=== PATIENT | female | born 1955 | race Caucasian/White ===

== ENCOUNTER → 2022-06-30 16:04 | Outpatient (CLI) | payer MEDICARE, SELFPAY ==
--- NOTE | 2022-06-30 16:06 | DI.MRI.S_ITS ---
PROCEDURE: MR LUMBAR SPINE WO CON INDICATIONS: Sciatica, left side TECHNIQUE: Noncontrast sagittal T1 spin echo and T2 fast echo, sagittal STIR, and T2 fast spin echo through the lumbar spine. In cases with scoliosis, additional coronal T2 fast spin echo may be performed. COMPARISON: None. FINDINGS: Image quality: Excellent. Alignment and Curvature: Trace anterolisthesis of L4 on L5. Bone Marrow: Marrow is of normal overall signal. No acute vertebral body compression fractures. Chronic L5 compression. Spinal Cord: Conus medullaris terminates at the L1 level. Visualized cord demonstrates normal signal and size. Paraspinous Soft Tissues: No paravertebral masses. T12-L1: Disc bulge. Facet hypertrophy. No significant canal stenosis. Mild left foraminal stenosis. L1-L2: Disc bulge. Facet hypertrophy. Mild canal stenosis. Mild right foraminal stenosis. L2-L3: Disc bulge. Facet and ligament hypertrophy. Moderate to severe canal stenosis. [id number] right foraminal stenosis. L3-L4: Disc bulge. Facet and ligament hypertrophy. Moderate canal stenosis. Severe right foraminal stenosis with impingement on the exiting right L3 nerve root. L4-L5: Trace anterolisthesis of L4 on L5. Disc bulge. Prominent facet hypertrophy. Moderate canal stenosis. Mild bilateral foraminal stenosis. L5-S1: Disc bulge. Prominent bilateral facet hypertrophy. Mild canal stenosis. Severe bilateral foraminal narrowing with bilateral foraminal L5 nerve root impingement. IMPRESSION: 1. There is underlying multilevel facet arthropathy including prominent facet arthropathy at L4-L5 and L5-S1. 2. There is multilevel canal stenosis, mild at L1-L2, moderate to severe at L2-L3, moderate at L3-L4, moderate at L4-L5, and mild at L5-S1. 3. Multilevel foraminal narrowing as described above. Findings include severe right foraminal stenosis at L3-L4 and severe bilateral foraminal stenosis at L5-S1. Dictated by: Torrey Calderon M.D. on 07/01/2022 at 7:59 Approved by: Torrey Calderon M.D. on 07/01/2022 at 8:05
== END ==
PROVIDERS: Family Provider Internal Medicine; PCP Internal Medicine; Referring Provider Internal Medicine; Visit Provider Internal Medicine
DX: M54.32 Sciatica, left side (principal); M47.816 Spondylosis without myelopathy or radiculopathy, lumbar region; M47.817 Spondylosis without myelopathy or radiculopathy, lumbosacral region; M48.061 Spinal stenosis, lumbar region without neurogenic claudication; M48.07 Spinal stenosis, lumbosacral region
CPT/HCPCS: 72148

== ENCOUNTER 2023-06-19 10:37 | Inpatient (IN) | payer MEDICARE, SELFPAY ==
[2023-06-19] VITALS (32 sets, daily range): BP systolic 150–223; BP diastolic 73–153; PULSE 71–87; RESP 14–24; TEMP 35.9–36.6; O2SAT 91–97; BMI 32.5
--- NOTE | 2023-06-19 10:59 | DI.RAD.S_ITS ---
PROCEDURE: XR CHEST 1V INDICATIONS: chest pain TECHNIQUE: One view of the chest was acquired. COMPARISON: None. FINDINGS: Surgical changes and devices: None. Lungs and pleura: On this semiupright portable chest examination, no large pneumothorax or large pleural effusions are seen. No focal infiltrates are seen. Calcification can be seen along the right inferior pleura. Low lung volumes are noted. This causes a crowded appearance to the lung markings and limits evaluation. Mediastinum: The cardiac contours are within normal limits. The aorta demonstrates calcification and tortuosity. Bones and chest wall: No suspicious bony lesions. Age-appropriate bony degenerative changes are seen. Mild dextroconvex scoliotic curvature is seen. Overlying soft tissues appear unremarkable. IMPRESSION: No christ acute abnormality can be seen on this limited single view portable chest. There is calcification seen along the right inferior pleura. Please correlate with a history of asbestos exposure. Dictated by: Mg June M.D. on 06/19/2023 at 10:18 Approved by: Mg June M.D. on 06/19/2023 at 10:19
[2023-06-19 11:29] LABS: Alanine Aminotransferase 19 IU/L (<35); Albumin 3.4 g/dL (3.5-5.0); Alkaline Phosphatase 162 U/L (38-126); Aspartate Aminotransferase 40 IU/L (14-36); BUN Creatinine Ratio 28.6 (6-22); Bilirubin Total 0.8 mg/dL (0.2-1.3); Blood Urea Nitrogen 20 mg/dL (7-17); Calcium 8.4 mg/dL (8.4-10.2); Carbon Dioxide 33 mmol/L (22-32); Chloride 91 mmol/L (98-107); Creatine Kinase 63 U/L (30-135); Estimated Glomerular Filt Rate > 60 mL/min (>60); Globulin 3.4 g/dL (1.7-4.1); Glucose 106 mg/dL (80-110); HEMOLYSIS < 15 (0-50); Lipase 29 U/L (23-300); Magnesium 1.8 mg/dL (1.6-2.3); Sodium 128 mmol/L (137-145); Total Protein 6.8 g/dL (6.3-8.2)
[2023-06-19 11:31] LABS: Add Manual Diff / Slide Review NO; Basophils Absolute Auto 100 /uL (0-100); Basophils Percent Auto 0.8 % (0-2); Eosinophils Absolute Auto 0 /uL (0-450); Eosinophils Percent Auto 0.1 % (2-4); Hematocrit 31.5 % (36-46); Hemoglobin 10.1 g/dL (12.0-16.0); Lymphocytes Absolute Auto 3500 /uL (1100-4500); Lymphocytes Percent Auto 20.2 % (25-40); Mean Corpuscular HGB Conc 32.1 % (30-36); Mean Corpuscular Hemoglobin 21.9 PG (26-34); Mean Corpuscular Volume 68.1 fL (80-100); Monocytes Absolute Auto 1000 /uL (0-900); Monocytes Percent Auto 5.7 % (3-14); Neutrophils Absolute Auto 12700 /uL (1500-7000); Neutrophils Percent Auto 73.2 % (50-75); Platelet Count 444 X10^3/uL (150-400); Red Blood Cell Count 4.62 X10^6/uL (4.0-5.2); Red Cell Distribution Width 21.5 % (11.6-14.8); White Blood Cell Count 17.4 X10^3/uL (4.5-11.0)
[2023-06-19 11:36] LABS: Anisocytosis 2+; Target Cells 1+
[2023-06-19 11:39] LABS: Potassium 2.2 mmol/L (3.4-5.1)
[2023-06-19 11:41] LABS: Troponin I 0.544 ng/mL (0.01-0.034)
[2023-06-19 11:43] LABS: INR 0.9 (0.9-1.3); Prothrombin Time 10.6 SECONDS (9.4-12.5)
[2023-06-19 11:46] LABS: PTT Partial Thromboplastin Tim 31 SECONDS (25.1-36.5)
--- NOTE | 2023-06-19 11:49 | ED.DIZZY ---
HPI - Dizziness General Chief Complaint: Dizziness Stated Complaint: dizzy, fall, failure to thrive in home Time Seen by Provider: 06/19/23 11:13 Source: patient and EMS Mode of arrival: EMS History of Present Illness HPI Narrative: Patient is a 68-year-old female with chronic back pain on Flexeril unknown cardiac history but she does take diltiazem presenting today with some dizziness. Patient has had some social stressors at home her niece recently a traumatic and she has been struggling. She admits to feeling shutting down and numb. She has been staying in her room. She denies any sort of chest pain shortness of breath. She has no fever chills cough no nausea or vomiting. Not totally sure why she is here. Son reports that she fell at some point non anticoagulation or antiplatelet medications Related Data Home Medications Medication Instructions Recorded Confirmed hydrocodone 7.5 mg-acetaminophen 1 tab PO Q6H PRN Pain (Scale Score 07/26/17 06/19/23 300 mg tablet 7-10) omeprazole 40 mg capsule,delayed 40 mg PO DAILY 07/26/17 06/19/23 release Respironics Dreamstation Auto BIPAP #1 ea 03/02/18 06/19/23 trazodone 100 mg tablet 150 mg PO DAILY 03/04/18 06/19/23 duloxetine 30 mg capsule,delayed 60 mg PO DAILY 06/19/23 06/19/23 release fluoxetine 20 mg capsule 40 mg PO DAILY 06/19/23 06/19/23 gabapentin 300 mg capsule 600 mg PO 3XD 06/19/23 06/19/23 triamterene 75 1 tab PO DAILY 06/19/23 06/19/23 mg-hydrochlorothiazide 50 mg tablet Allergies Allergy/AdvReac Type Severity Reaction Status Date / Time No Known Drug Allergies Allergy Verified 09/01/18 09:50 Patient History Medical History Obesity (BMI 30-39.9) Knee pain, right [place] (generalized anxiety disorder) Depression Hypertension Morbid obesity with BMI of 50.0-59.9, adult Periodic limb movement disorder (PLMD) Insomnia, unspecified Obstructive sleep apnea of adult Snoring Surgical History History of gastric bypass Social History marital status: details: to Rajan Diaz household members: children and other lives independently: Yes caregiver/support person: No housing: house Smoking Status: Former smoker alcohol intake: never Smoking Status: Former smoker Exam Initial Vital Signs Initial Vital Signs: Vital Signs Pulse Rate 80 06/19/23 10:43 Pulse Oximetry 93 06/19/23 10:43 GENERAL: Alert elderly 68-year-old female and in no acute distress. HEENT: Head atraumatic,EOMI, pupils reactive, face symmetric, moist mucous membranes CARDIOVASCULAR: Regular rate and rhythm without murmurs, rubs or gallops. RESPIRATORY: Breath sounds equal bilaterally, no wheezes rales or rhonchi. ABDOMEN: Soft, nontender. Normoactive bowel sounds all 4 quadrants. No guarding or rebound. EXTREMITIES: Normal range of motion, no clubbing or edema. Neurovascularly intact NEUROLOGICAL: Alert and oriented x4.Normal gait and speech. Cranial nerves II through XII grossly intact. Good [id number], good [id number], strength equal bilaterally, no dysarthria or aphasia, sensation in tact to soft touch bilaterally, no visual changes, no facial droop SKIN: Warm, dry, no laceration, no petechiae, no rashes or lesions. Scores GCS [place] coma scale eye opening: Spontaneous [place] coma scale verbal response: Orientated [place] coma scale motor response: Obey commands [place] coma scale total score: 15 Course Orders Ordered: Acetaminophen (Acetaminophen 325 Mg Tablet) 650 mg PO Q6H PRN PRN Reason: Fever/Mild Pain (1-3) Last Admin: 06/20/23 05:34 Dose: 650 mg Documented By: Admin: 06/19/23 23:08 Dose: 650 mg Documented By: AT Albuterol/Ipratropium (Albuterol/Ipratropium 3 Ml Ampul) 3 ml INH [id number] PRN PRN Reason: shortness of breath/wheezing Aspirin (Aspirin Ec 81 Mg Tablet) 81 mg PO DAILY ESVIN Azithromycin (Azithromycin 250 Mg Tablet) 500 mg PO DAILY [facility] Stop: 06/21/23 09:01 Last Admin: 06/19/23 18:26 Dose: 500 mg Documented By: KW Duloxetine HCl (Duloxetine 30 Mg Capsule) 60 mg PO DAILY [facility] Enoxaparin Sodium (Enoxaparin 40 Mg/0.4 Ml Syringe) 40 mg SUBCUT DAILY [facility] Fluoxetine HCl (Fluoxetine 20 Mg Capsule) 40 mg PO DAILY [facility] Sodium Chloride (Normal Saline 0.9%) 1,000 mls @ 100 mls/hr IV CONT ESVIN Last Admin: 06/20/23 05:38 Dose: 100 mls/hr Documented By: Infusion: 06/20/23 04:53 Dose: Infused Documented By: Admin: 06/19/23 18:53 Dose: 100 mls/hr Documented By: Infusion: 06/19/23 18:53 Dose: Infused Documented By: Infusion: 06/19/23 18:35 Dose: 100 mls/hr Documented By: Admin: 06/19/23 12:40 Dose: 100 mls/hr Documented By: JEFFREY Ceftriaxone Sodium 1,000 mg/ (Sodium Chloride) 100 mls @ 200 mls/hr IV Q24H [facility] Stop: 06/22/23 17:46 Last Admin: 06/19/23 18:26 Dose: 200 mls/hr Documented By: JEFFREY Lorazepam (Lorazepam 0.5 Mg Tablet) 0.5 mg PO Q6HR PRN PRN Reason: Anxiety Melatonin (Melatonin 3 Mg Tablet) 6 mg PO BEDTIME PRN PRN Reason: Insomnia Naloxone HCl (Naloxone 0.4 Mg/Ml Vial) 0.2 mg IV Q2MIN PRN PRN Reason: Opiate Reversal Ondansetron HCl (Ondansetron 4 Mg/2 Ml Inj) 4 mg IV Q4HR PRN PRN Reason: Nausea And Vomiting Last Admin: 06/19/23 18:53 Dose: 4 mg Documented By: NICO Polyethylene Glycol (Polyethylene Glycol 3350 17 Gm Powd.Pack) 17 gm PO DAILY PRN PRN Reason: Constipation Prednisone (Prednisone 20 Mg Tablet) 40 mg PO DAILY [facility] Stop: 06/23/23 09:01 Last Admin: 06/19/23 20:31 Dose: 40 mg Documented By: SOURAV Sennosides (Sennosides 8.6 Mg Tablet) 8.6 mg PO BID PRN PRN Reason: Constipation Discontinued Medications Acetaminophen (Acetaminophen 325 Mg Tablet) 975 mg PO NOW ONE Stop: 06/19/23 17:18 Last Admin: 06/19/23 17:20 Dose: 975 mg Documented By: JEFFREY Aspirin (Aspirin 81 Mg Chew Tab) 324 mg PO NOW ONE Stop: 06/19/23 14:15 Last Admin: 06/19/23 14:41 Dose: 324 mg Documented By: ADAM POTASSIUM CHLORIDE IN WATER (Potassium Cl 10 Meq/100 Ml Annie) 10 meq in 100 mls @ 100 mls/hr IV Q1H [facility] Stop: 06/19/23 18:14 Last Infusion: 06/19/23 23:04 Dose: Infused Documented By: Admin: 06/19/23 22:04 Dose: 100 mls/hr Documented By: Infusion: 06/19/23 21:32 Dose: Infused Documented By: Admin: 06/19/23 20:32 Dose: 100 mls/hr Documented By: Infusion: 06/19/23 18:16 Dose: Infused Documented By: Admin: 06/19/23 17:16 Dose: 100 mls/hr Documented By: Infusion: 06/19/23 17:15 Dose: Infused Documented By: Admin: 06/19/23 16:11 Dose: 100 mls/hr Documented By: Infusion: 06/19/23 16:10 Dose: Infused Documented By: Admin: 06/19/23 14:41 Dose: 100 mls/hr Documented By: Infusion: 06/19/23 14:25 Dose: Infused Documented By: Admin: 06/19/23 13:05 Dose: 100 mls/hr Documented By: JEFFREY Nicotine (Nicotine 21 Mg Patch) 21 mg TOP NOW ONE Stop: 06/19/23 15:43 Last Admin: 06/19/23 18:21 Dose: Not Given Documented By: JEFFREY Nicotine (Nicotine 21 Mg Patch) 21 mg TOP NOW ONE Stop: 06/19/23 23:01 Last Admin: 06/19/23 23:09 Dose: 21 mg Documented By: AT Potassium Chloride (Potassium Chloride 20 Meq Tab) 20 meq PO NOW ONE Stop: 06/20/23 00:14 Last Admin: 06/20/23 00:51 Dose: 20 meq Documented By: AT Vital Signs Vital signs: Vital Signs - 8 hr 06/19/23 11:00 06/19/23 11:24 06/19/23 11:24 Pulse Rate 74 72 Respiratory Rate 22 Blood Pressure 175/84 H Pulse Oximetry 92 93 06/19/23 11:30 06/19/23 11:31 06/19/23 11:31 Pulse Rate 82 75 Respiratory Rate Blood Pressure 171/74 H Pulse Oximetry 93 91 06/19/23 12:00 06/19/23 12:00 06/19/23 12:30 Pulse Rate 74 73 Respiratory Rate 24 Blood Pressure 176/86 H Pulse Oximetry 93 94 06/19/23 12:30 06/19/23 13:00 06/19/23 13:01 Pulse Rate 80 79 Respiratory Rate Blood Pressure 183/105 H Pulse Oximetry 93 06/19/23 13:01 06/19/23 13:30 06/19/23 13:41 Pulse Rate 74 Respiratory Rate 19 Blood Pressure 150/76 H 176/87 H Pulse Oximetry 95 06/19/23 13:41 06/19/23 14:00 06/19/23 14:01 Pulse Rate 77 73 74 Respiratory Rate 24 20 19 Blood Pressure Pulse Oximetry 94 93 91 06/19/23 14:01 06/19/23 14:37 06/19/23 14:38 Pulse Rate 71 71 Respiratory Rate 18 18 Blood Pressure 223/99 H Pulse Oximetry 92 93 06/19/23 14:38 06/19/23 14:48 06/19/23 14:52 Pulse Rate 72 73 Respiratory Rate Blood Pressure 213/153 H Pulse Oximetry 91 95 06/19/23 14:52 06/19/23 15:06 06/19/23 15:30 Pulse Rate 72 72 Respiratory Rate Blood Pressure 182/84 H Pulse Oximetry 95 92 06/19/23 15:30 06/19/23 16:00 06/19/23 16:01 Pulse Rate 72 72 Respiratory Rate 18 24 Blood Pressure 197/89 H Pulse Oximetry 97 96 06/19/23 16:01 06/19/23 16:30 06/19/23 16:31 Pulse Rate 75 77 Respiratory Rate 19 23 Blood Pressure 194/89 H Pulse Oximetry 96 95 06/19/23 16:31 06/19/23 17:00 06/19/23 17:01 Pulse Rate 73 74 Respiratory Rate 23 Blood Pressure 211/101 H Pulse Oximetry 92 92 MDM - Dizziness Lab Data 06/20/23 05:41 06/20/23 05:41 Labs: Lab Results 06/19/23 06/19/23 06/19/23 Range/Units 11:00 11:09 13:13 WBC 17.4 H (4.5-11.0) X10^3/uL RBC 4.62 (4.0-5.2) X10^6/uL Hgb 10.1 L (12.0-16.0) g/dL Hct 31.5 L (36-46) % MCV 68.1 L (80-100) fL MCH 21.9 L (26-34) PG MCHC 32.1 (30-36) % RDW 21.5 H (11.6-14.8) % Plt Count 444 H (150-400) X10^3/uL Neut % (Auto) 73.2 (50-75) % Lymph % (Auto) 20.2 L (25-40) % [place] % (Auto) 5.7 (3-14) % Eos % (Auto) 0.1 L (2-4) % Baso % (Auto) 0.8 (0-2) % Neut # (Auto) 52970 H (7556-2367) /uL Lymph # (Auto) 3500 (3496-9268) /uL [place] # (Auto) 1000 H (0-900) /uL Eos # (Auto) 0 (0-450) /uL Baso # (Auto) 100 (0-100) /uL RBC Morphology Not Reportable Anisocytosis 2+ H Target Cells 1+ H PT 10.6 (9.4-12.5) SECONDS INR 0.9 (0.9-1.3) APTT 31 (25.1-36.5) SECONDS Sodium 128 L (137-145) mmol/L Potassium 2.2 L* (3.4-5.1) mmol/L Chloride 91 L (98-107) mmol/L Carbon Dioxide 33 H (22-32) mmol/L BUN 20 H (7-17) mg/dL Creatinine 0.70 (0.52-1.04) mg/dL Estimated GFR > 60 (>60) mL/min BUN/Creatinine Ratio 28.6 H (6-22) Glucose 106 (80-110) mg/dL Lactate 1.3 (0.7-2.1) mmol/L Calcium 8.4 (8.4-10.2) mg/dL Magnesium 1.8 (1.6-2.3) mg/dL Total Bilirubin 0.8 (0.2-1.3) mg/dL AST 40 H (14-36) IU/L ALT 19 (<35) IU/L Alkaline Phosphatase 162 H (38-126) U/L Total Creatine Kinase 63 (30-135) U/L Troponin I 0.544 H* 0.546 H* (0.01-0.034) ng/mL Total Protein 6.8 (6.3-8.2) g/dL Albumin 3.4 L (3.5-5.0) g/dL Globulin 3.4 (1.7-4.1) g/dL Albumin/Globulin Ratio 1.0 (1.0-2.8) Lipase 29 (23-300) U/L Procalcitonin 0.23 (<0.5) ng/mL Urine Color Urine Appearance Urine pH (4.5-8.0) Ur Specific [place] (1.000-1.035) Urine Protein (Negative) Urine Glucose (UA) (Negative) g/dL Urine Ketones (NEGATIVE) Urine Occult Blood (Negative) Urine Nitrate (Negative) Urine Bilirubin (NEGATIVE) Urine Urobilinogen (0.2) E.U./dL Ur Leukocyte Esterase (NEGATIVE) Urine RBC (0-5/HPF) Urine WBC (0-5/HPF) Ur Squamous Epith Cells (0-5/HPF) Amorphous Sediment Urine Bacteria (None) Ur Culture Indicated? Vol Urine Centrifuged Salicylates (<20) mg/dL U Opiates 300ng/mL cut (Negative) Ur Oxycodone Screen (Negative) Urine Methadone Screen (Negative) Acetaminophen (10-30) ug/mL Ur Barbiturates Screen (Negative) U Tricyclic Antidepress (Negative) Ur Phencyclidine Scrn (Negative) Ur Amphetamines Screen (Negative) U Methamphetamines Scrn (Negative) Ur MDMA Scrn (Ecstasy) (Negative) U Benzodiazepines Scrn (Negative) Urine Cocaine Screen (Negative) U Marijuana (THC) Screen (Negative) Urine Specific [place] (Normal) Ethyl Alcohol < 10 ( - 10) mg/dL Ur Creatinine (Normal) 06/19/23 06/19/23 06/19/23 Range/Units 13:30 13:30 15:46 WBC (4.5-11.0) X10^3/uL RBC (4.0-5.2) X10^6/uL Hgb (12.0-16.0) g/dL Hct (36-46) % MCV (80-100) fL MCH (26-34) PG MCHC (30-36) % RDW (11.6-14.8) % Plt Count (150-400) X10^3/uL Neut % (Auto) (50-75) % Lymph % (Auto) (25-40) % [place] % (Auto) (3-14) % Eos % (Auto) (2-4) % Baso % (Auto) (0-2) % Neut # (Auto) (8272-6196) /uL Lymph # (Auto) (5001-6944) /uL [place] # (Auto) (0-900) /uL Eos # (Auto) (0-450) /uL Baso # (Auto) (0-100) /uL RBC Morphology Anisocytosis Target Cells PT (9.4-12.5) SECONDS INR (0.9-1.3) APTT (25.1-36.5) SECONDS Sodium (137-145) mmol/L Potassium (3.4-5.1) mmol/L Chloride (98-107) mmol/L Carbon Dioxide (22-32) mmol/L BUN (7-17) mg/dL Creatinine (0.52-1.04) mg/dL Estimated GFR (>60) mL/min BUN/Creatinine Ratio (6-22) Glucose (80-110) mg/dL Lactate (0.7-2.1) mmol/L Calcium (8.4-10.2) mg/dL Magnesium (1.6-2.3) mg/dL Total Bilirubin (0.2-1.3) mg/dL AST (14-36) IU/L ALT (<35) IU/L Alkaline Phosphatase (38-126) U/L Total Creatine Kinase (30-135) U/L Troponin I 0.572 H* (0.01-0.034) ng/mL Total Protein (6.3-8.2) g/dL Albumin (3.5-5.0) g/dL Globulin (1.7-4.1) g/dL Albumin/Globulin Ratio (1.0-2.8) Lipase (23-300) U/L Procalcitonin (<0.5) ng/mL Urine Color Yellow Urine Appearance Clear Urine pH 7.0 Normal (4.5-8.0) Ur Specific [place] 1.010 (1.000-1.035) Urine Protein Trace H (Negative) Urine Glucose (UA) Negative (Negative) g/dL Urine Ketones Negative (NEGATIVE) Urine Occult Blood Negative (Negative) Urine Nitrate Negative (Negative) Urine Bilirubin Negative (NEGATIVE) Urine Urobilinogen 2.0 H (0.2) E.U./dL Ur Leukocyte Esterase Negative (NEGATIVE) Urine RBC None seen (0-5/HPF) Urine WBC 0-1/hpf (0-5/HPF) Ur Squamous Epith Cells 0-1 /hpf (0-5/HPF) Amorphous Sediment 1+ Urine Bacteria None seen (None) Ur Culture Indicated? Cult not indicated Vol Urine Centrifuged 10ml (spun) Salicylates 1.8 (<20) mg/dL U Opiates 300ng/mL cut Positive H (Negative) Ur Oxycodone Screen Positive H (Negative) Urine Methadone Screen Negative (Negative) Acetaminophen < 10 (10-30) ug/mL Ur Barbiturates Screen Negative (Negative) U Tricyclic Antidepress Positive H (Negative) Ur Phencyclidine Scrn Negative (Negative) Ur Amphetamines Screen Negative (Negative) U Methamphetamines Scrn Negative (Negative) Ur MDMA Scrn (Ecstasy) Negative (Negative) U Benzodiazepines Scrn Positive H (Negative) Urine Cocaine Screen Negative (Negative) U Marijuana (THC) Screen Negative (Negative) Urine Specific [place] Normal (Normal) Ethyl Alcohol ( - 10) mg/dL Ur Creatinine Normal (Normal) Imaging Data Chest x-ray: Radiologist's Impression: PROCEDURE: XR CHEST 1V INDICATIONS: chest pain TECHNIQUE: One view of the chest was acquired. COMPARISON: None. FINDINGS: Surgical changes and devices: None. Lungs and pleura: On this semiupright portable chest examination, no large pneumothorax or large pleural effusions are seen. No focal infiltrates are seen. Calcification can be seen along the right inferior pleura. Low lung volumes are noted. This causes a crowded appearance to the lung markings and limits evaluation. Mediastinum: The cardiac contours are within normal limits. The aorta demonstrates calcification and tortuosity. Bones and chest wall: No suspicious bony lesions. Age-appropriate bony degenerative changes are seen. Mild dextroconvex scoliotic curvature is seen. Overlying soft tissues appear unremarkable. IMPRESSION: No christ acute abnormality can be seen on this limited single view portable chest. There is calcification seen along the right inferior pleura. Please correlate with a history of asbestos exposure. Dictated by: Mg June M.D. on 06/19/2023 at 10:18 CT scan - head: Radiologist's Impression: PROCEDURE: CT HEAD/BRAIN WO CON INDICATIONS: fall TECHNIQUE: Noncontrast 4.5 mm thick angled axial sections acquired from the foramen magnum to the vertex, with coronal and sagittal reformats. For radiation dose reduction, the following was used: automated exposure control, adjustment of mA and/or kV according to patient size. COMPARISON: [facility], CR, XR CHEST 1V, 06/19/2023, 11:07. [facility], CT, HEAD WITHOUT CONTRAST, 04/13/2014, 8:09. FINDINGS: Image quality: Mild streak artifact can be seen through the skull base. CSF spaces: Basal cisterns are patent. No extra-axial fluid collections. The ventricles are symmetric in size and shape. Brain: No intracranial bleeds or masses. There is cerebral volume loss for age, with resultant ventricular and sulcal prominence. There are periventricular and deep white matter chronic small vessel ischemic changes. There is intracranial internal carotid artery atherosclerosis. Areas of extra-axial calcification can be seen posteriorly and superiorly, which are similar to the prior and considered to be benign. Skull and face: Calvarium and visualized facial bones appear intact, without suspicious lesions. Incidental note is made of hyperostosis frontalis. This is not considered to be pathologic in a woman of this age. Sinuses: Visualized sinuses and mastoids are clear. IMPRESSION: No acute intracranial hemorrhage is seen. No acute intracranial pathology. Dictated by: Mg June M.D. on 06/19/2023 at 12:01 CT scan - chest: Radiologist's Impression: PROCEDURE: CT CHEST ABD PEL W CON INDICATIONS: confusion elevated wbc TECHNIQUE: After the administration of intravenous contrast, 5 mm thick sections acquired from the lung apices to the symphysis. 5 mm coronal and sagittal reformats were performed, with additional 7 mm MIP reformats through the lungs. For radiation dose reduction, the following was used: automated exposure control, adjustment of mA and/or kV according to patient size. COMPARISON: [facility], CR, XR CHEST 1V, 06/19/2023, 11:07. FINDINGS: Image quality: Excellent. CHEST: Lower Neck: No enlarged lymph nodes. Thyroid: No thyroid nodules which require sonographic follow up, per consensus guidelines. Axillae: No enlarged lymph nodes. Chest Wall: Unremarkable. Lungs and Pleura: Subpleural ground-glass infiltrates in upper lobes bilaterally. There are subpleural nodules in right upper lobe. Right basilar scars and atelectasis. No pneumothorax or pleural effusions. Pleural thickening and calcified pleural plaques in the right khadar thorax. No consolidation or suspicious nodules. Heart: Heart size is normal. No pericardial effusion. Moderate coronary artery calcification. Thoracic Vessels: The aorta and pulmonary arteries demonstrate normal size. Mediastinum and Jacqueline: No enlarged lymph nodes. Esophagus: No wall thickening. Small hiatal hernia. ABDOMEN: Liver: No solid mass. Normal size. Mild hepatic steatosis. Gallbladder: Surgically absent. Biliary ducts: There is mild intrahepatic biliary dilation. Common bile duct is dilated measuring up to 20 mm, tapering to 9 mm in ampulla. Pancreas: No ductal dilation. Spleen: Size is within normal limits. Adrenal Glands: Left adrenal thickening.. Kidneys and Ureters: Left kidney demonstrates abnormal enhancement with areas of decreased enhancement suspicious for pyelonephritis. There are multiple low-density nodules in kidneys bilaterally, most likely cysts. A rim calcified cyst is seen in the inferior pole of the right kidney. No renal stones or hydronephrosis. No solid mass. No complex renal cystic lesion which requires follow up. Stomach and Bowel: Postsurgical changes with gastric bypass. Normal colonic caliber, without significant wall thickening. There is a large amount of stool in colon. Peritoneum: No abnormal intraperitoneal fluid. No free air. Ventral Wall: Multiple ventral hernias. There is a large ventral hernia at midline containing omentum, mesentery small bowel and colon loops. A subxiphoid fat containing ventral hernia is seen. Abdominal Nodes: No retroperitoneal or mesenteric adenopathy by size criteria. Vessels: Aorta and inferior vena cava are normal in size. Mild atherosclerotic calcifications. PELVIS: Pelvic Organs: Uterus is absent. Ovaries are not visualized. There is no pathological free-fluid in pelvis.. Bladder: No bladder wall thickening, accounting for underdistention. Pelvic Nodes: No enlarged lymph nodes. Miscellaneous: No inguinal hernias are seen. Bones: No aggressive osseous abnormality. Scoliosis and degenerative changes in lumbar spine. IMPRESSION: 1. Striated nephrogram in left kidney suspicious for pyelonephritis. 2. Subpleural ground-glass infiltrates in upper lobes bilaterally, consistent with pneumonia, including atypical pneumonia. 3. Small subpleural nodules in right upper lobe. Consider follow-up CT to the region. 4. Pleural thickening and calcification in right lower hemithorax along the hemidiaphragm. There are right basilar scars and atelectasis. 5. Cholecystectomy. There is biliary dilation. Please correlate with serum bilirubin for biliary obstruction. 6. Multiple ventral hernias. 7. A large amount of stool in colon. Dictated by: Leon Song M.D. on 06/19/2023 at 16:11 ECG Data Interpretation: EKG 1. Sinus rhythm with some ST depression in V3 V4 V5 V6 and lead [address] elevation no priors to compare EKG 2. Artifact noted but no obvious ST changes with persistent ST depression in precordial leads EKG 3. Persistent ST depression in precordial leads without ST elevation sinus rhythm rate 70 MDM Narrative Medical decision making narrative: MDM CC: Dizziness confusion Complicating co-morbidities: Hypertension Corroborating data: Son and EMS Medical records reviewed: None to review Differential considered: [ ] Exam documented above, pertinent findings include: A&O x3 no focal deficits Lab Test results independently reviewed as above. Pertinent findings: WBC 17.4, Hb 10.1, Hct 31.5, platelets 444, sodium 28 potassium 2.2 chloride 91 carbon dioxide 33 BUN 20 creatinine 0.7, glucose 106, lactate 1.3, Mag 1.8 bilirubin 0.8 AST 40 ALT 19 alk-phos 162 troponin 0.546, 0.572 Drug screen is positive for oxycodone, opiates, TCA, and benzos, alcohol level negative Independently reviewed EKG as above: ST depressions precordial leads without elevations no priors to compare Imaging studies independently reviewed: Chest x-ray no acute cardiopulmonary process CT chest abdomen pelvis shows possible pyelonephritis but no other abnormality. Head CT negative Consultations: 15:15 Dr. Hodgson recommend aspirin only no need for heparin drip recommend echocardiogram and echo no need for transfer Dr. Tillman updated on patient's symptoms test results request CT chest abdomen pelvis Treatments: IV fluids, K rider potassium Re-evaluations: [ ] Discussion: Patient presents today with some sort of dizziness depression no suicidal ideations. She is found to be slightly hyponatremic with a sodium of 128 a potassium of 2.2 and elevated troponins remained stable. Unclear cause of troponin elevation she does have some slight ST depression but cardiology just recommended aspirin and echo no need for anticoagulation or transfer. Troponins are stable x3 and she has not symptomatic or having any sort of chest pain. Initially reported to be slightly dizzy but not complaining of dizziness here she has no focal deficits. Head CT is negative. She is noted to have leukocytosis of 17 unclear cause of infection./CT does show some pyelonephritis however her urinalysis is clear she has no fever, no respiratory symptoms and her abdomen is soft Discharge Plan Departure Patient Disposition: Admitted As Inpatient Clinical Impression: Acute non-ST elevation myocardial infarction (NSTEMI), Hypokalemia, Acute hyponatremia Admit Date/Time: 06/19/23 17:16 Admit Provider: Garrett Tillman
[2023-06-19 12:06] LABS: Ethanol (ETOH) < 10 mg/dL
--- NOTE | 2023-06-19 12:13 | DI.CT.S_ITS ---
PROCEDURE: CT HEAD/BRAIN WO CON INDICATIONS: fall TECHNIQUE: Noncontrast 4.5 mm thick angled axial sections acquired from the foramen magnum to the vertex, with coronal and sagittal reformats. For radiation dose reduction, the following was used: automated exposure control, adjustment of mA and/or kV according to patient size. COMPARISON: [facility], CR, XR CHEST 1V, 06/19/2023, 11:07. [facility], CT, HEAD WITHOUT CONTRAST, 04/13/2014, 8:09. FINDINGS: Image quality: Mild streak artifact can be seen through the skull base. CSF spaces: Basal cisterns are patent. No extra-axial fluid collections. The ventricles are symmetric in size and shape. Brain: No intracranial bleeds or masses. There is cerebral volume loss for age, with resultant ventricular and sulcal prominence. There are periventricular and deep white matter chronic small vessel ischemic changes. There is intracranial internal carotid artery atherosclerosis. Areas of extra-axial calcification can be seen posteriorly and superiorly, which are similar to the prior and considered to be benign. Skull and face: Calvarium and visualized facial bones appear intact, without suspicious lesions. Incidental note is made of hyperostosis frontalis. This is not considered to be pathologic in a woman of this age. Sinuses: Visualized sinuses and mastoids are clear. IMPRESSION: No acute intracranial hemorrhage is seen. No acute intracranial pathology. Dictated by: Mg June M.D. on 06/19/2023 at 12:01 Approved by: Mg June M.D. on 06/19/2023 at 12:03
[2023-06-19 12:26] LABS: Lactate (Lactic Acid) 1.3 mmol/L (0.7-2.1)
[2023-06-19] MEDS: SODIUM CHLORIDE 0.9% 1,000 ML 100 ML IV ×2 (12:40→18:53)
[2023-06-19 12:44] LABS: Procalcitonin 0.23 ng/mL (<0.5)
[2023-06-19] MEDS: POTASSIUM CHLORIDE IN WATER 10 MEQ/100 ML PIGGYBACK 100 MEQ IV ×6 (13:05→22:04)
[2023-06-19 13:42] LABS: Appearance Urine UA CLEAR; Bilirubin Urine UA NEGATIVE (NEGATIVE); Color Urine UA YELLOW; Glucose Urine UA NEGATIVE (Negative); Ketones Urine UA NEGATIVE (NEGATIVE); Leukocyte Esterase Urine UA NEGATIVE (NEGATIVE); Nitrite Urine UA NEGATIVE (Negative); Occult Blood Urine UA NEGATIVE (Negative); Protein Urine UA TRACE (Negative)
[2023-06-19 13:48] LABS: UR Morphine/Opiate cutoff 300 Positive (Negative); Ur Creatinine Normal (Normal); Ur Specific Gravity Normal (Normal); Urine Amphetamines Negative (Negative); Urine Barbiturates Negative (Negative); Urine Benzodiazepines Positive (Negative); Urine Cocaine Negative (Negative); Urine MDMA Negative (Negative); Urine Methadone Negative (Negative); Urine Methamphetamines Negative (Negative); Urine Oxycodone Positive (Negative); Urine Phencyclidine Negative (Negative); Urine Tetrahydrocannabinol Negative (Negative); Urine Tricyclic Antidepressant Positive (Negative); Urine pH Normal (Normal)
[2023-06-19 13:51] LABS: Amorphous Sediment Urine 1+; Bacteria Urine None Seen; Culture Indicated Urine Cult Not Indicated; RBC Urine None Seen (0-5/HPF); Squamous Epithelial Cell Urine 0-1 /HPF (0-5/HPF); Urine Volume 10mL (spun); WBC Urine 0-1/HPF (0-5/HPF)
[2023-06-19 13:59] LABS: Troponin I 0.546 ng/mL (0.01-0.034)
--- NOTE | 2023-06-19 14:15 | DI.CT.S_ITS ---
PROCEDURE: CT CHEST ABD PEL W CON INDICATIONS: confusion elevated wbc TECHNIQUE: After the administration of intravenous contrast, 5 mm thick sections acquired from the lung apices to the symphysis. 5 mm coronal and sagittal reformats were performed, with additional 7 mm MIP reformats through the lungs. For radiation dose reduction, the following was used: automated exposure control, adjustment of mA and/or kV according to patient size. COMPARISON: [facility], CR, XR CHEST 1V, 06/19/2023, 11:07. FINDINGS: Image quality: Excellent. CHEST: Lower Neck: No enlarged lymph nodes. Thyroid: No thyroid nodules which require sonographic follow up, per consensus guidelines. Axillae: No enlarged lymph nodes. Chest Wall: Unremarkable. Lungs and Pleura: Subpleural ground-glass infiltrates in upper lobes bilaterally. There are subpleural nodules in right upper lobe. Right basilar scars and atelectasis. No pneumothorax or pleural effusions. Pleural thickening and calcified pleural plaques in the right khadar thorax. No consolidation or suspicious nodules. Heart: Heart size is normal. No pericardial effusion. Moderate coronary artery calcification. Thoracic Vessels: The aorta and pulmonary arteries demonstrate normal size. Mediastinum and Jacqueline: No enlarged lymph nodes. Esophagus: No wall thickening. Small hiatal hernia. ABDOMEN: Liver: No solid mass. Normal size. Mild hepatic steatosis. Gallbladder: Surgically absent. Biliary ducts: There is mild intrahepatic biliary dilation. Common bile duct is dilated measuring up to 20 mm, tapering to 9 mm in ampulla. Pancreas: No ductal dilation. Spleen: Size is within normal limits. Adrenal Glands: Left adrenal thickening.. Kidneys and Ureters: Left kidney demonstrates abnormal enhancement with areas of decreased enhancement suspicious for pyelonephritis. There are multiple low-density nodules in kidneys bilaterally, most likely cysts. A rim calcified cyst is seen in the inferior pole of the right kidney. No renal stones or hydronephrosis. No solid mass. No complex renal cystic lesion which requires follow up. Stomach and Bowel: Postsurgical changes with gastric bypass. Normal colonic caliber, without significant wall thickening. There is a large amount of stool in colon. Peritoneum: No abnormal intraperitoneal fluid. No free air. Ventral Wall: Multiple ventral hernias. There is a large ventral hernia at midline containing omentum, mesentery small bowel and colon loops. A subxiphoid fat containing ventral hernia is seen. Abdominal Nodes: No retroperitoneal or mesenteric adenopathy by size criteria. Vessels: Aorta and inferior vena cava are normal in size. Mild atherosclerotic calcifications. PELVIS: Pelvic Organs: Uterus is absent. Ovaries are not visualized. There is no pathological free-fluid in pelvis.. Bladder: No bladder wall thickening, accounting for underdistention. Pelvic Nodes: No enlarged lymph nodes. Miscellaneous: No inguinal hernias are seen. Bones: No aggressive osseous abnormality. Scoliosis and degenerative changes in lumbar spine. IMPRESSION: 1. Striated nephrogram in left kidney suspicious for pyelonephritis. 2. Subpleural ground-glass infiltrates in upper lobes bilaterally, consistent with pneumonia, including atypical pneumonia. 3. Small subpleural nodules in right upper lobe. Consider follow-up CT to the region. 4. Pleural thickening and calcification in right lower hemithorax along the hemidiaphragm. There are right basilar scars and atelectasis. 5. Cholecystectomy. There is biliary dilation. Please correlate with serum bilirubin for biliary obstruction. 6. Multiple ventral hernias. 7. A large amount of stool in colon. Dictated by: Leon Song M.D. on 06/19/2023 at 16:11 Approved by: Leon Song M.D. on 06/19/2023 at 16:21
[2023-06-19] MEDS: ASPIRIN 81 MG CHEW TAB 324 MG PO (14:41)
[2023-06-19 16:31] LABS: Troponin I 0.572 ng/mL (0.01-0.034)
[2023-06-19] MEDS: ACETAMINOPHEN 325 MG TABLET 975 MG PO (17:20)
--- NOTE | 2023-06-19 17:29 | CM.IDA ---
Initial DCP Assessment Note Patient is 68 y/o female who presents to ED via EMS due to GLF and dizziness this morning. EMS reported concern for failure to thrive. Patient's PCP was Dr. Maylin Green through [facility], but patient states that her PCP retired and she is need of a new local PCP. Patient states she sees a Psychiatrist through [facility] via telehealth. Patient has Medicare and AARP insurance. Patient has hx of Hypertension, Insomnia, chronic pain, Obstructive Sleep Apnea, Depression and NOLA. It is reported that patient's niece tragically in recent weeks here in [place] and that has been an added life stressor. CHEMISTS enters room to meet with patient. Patient presents as A/Ox4, it is reported that patient has not left her room in several months. Patient reports that she resides in [place] with son and a transient friend of son. 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 Patient states she uses a bedside commode and takes seated sponge baths at home. Patient states in recent days difficulty ambulating and uses a seated FWW at baseline. Patient endorses issues with chronic pain due to knee and back injuries. Patient endorses she has been more depressed in recent months and was diagnosed with Major Depressive Disorder. There is concern for patient's toxicology, positive for opiates, oxycodone, benzodiazepines, and tricyclic antidepressants, it is unknown if patient is prescribed all of these medications. CHEMISTS asks patient if she feels safe at home and patient endorses yes, patient states there is always someone home and she feels safe with son and his friend. Patient states her spouse . Patient states she has another niece that lives in town and her sister is currently visiting. Patient endorses preference for SNF rehab or HH if recommended upon discharge. Patient endorses concerns for her ambulation at this time. Hospitalist has accepted patient for acute care admission, there is concern for patient's elevated troponin and low levels of potassium. Plan: patient admitted to acute care, DCP to follow up with plan of care, pending therapies, patient would benefit from PT eval. SNF rehab vs. HH. Page Rocha [facility] Discharge Planning/Care Management CM Discharge Assessment Start: 06/19/23 17:24 Freq: Status: Active Protocol: Document 06/19/23 17:25 LN (Rec: 06/19/23 17:28 LN [id number]) Discharge Planning Assessment Assigned Steam Table Worker RAMIRO Abel Advance Directives? No Advance Directives on File No History Provided By Patient,Medical Record Has Patient been admitted in last 30 No days? Prior Living Arrangements House Household Members children,other Comment Patient states a transient friend of son is staying at the house currently. Type of transporation used prior to Relies on Others, hasn't left house admit Independent with ADL's No Is patient alert and oriented? Yes Needs Assistance With Meal Prep,Toileting,Home Chores / Shopping DME Already Rented / Owned FWW / Walker,Bedside Commode Patient/Family Preference Long-Term Facility,Home with Home Health Comment SNF vs. HH, primary preference is SNF rehab if appropriate Please Provide Date Initial DC 06/19/23 Assessment Was Performed
--- NOTE | 2023-06-19 17:38 | DI.ECHO.S_ITS ---
[facility] : : [address] : : [place] : : [id number] : : Phone: [phone] Echocardiogram Report + + :Name: CRYSTAL BRANDT Study Date: 06/20/2023 Height: 67 in : :[facility] ReadingLocation: Weight: 207 lb : : Gender: Female BSA: 2.1 m2 : :: 1955 Age: 68 yrs BP: 161/89 mmHg: :Reason For Study: ELEVATED TROPONIN : :Ordering Physician: FRANKLIN, : :DONA Mauricio Performed By: Naima Del Rio : :Referring: DONA REID : + + Interpretation Summary The left ventricle is normal in size and wall thickness. The ejection fraction is estimated to be 55-60%. Septal motion is consistent with conduction abnormality. Diastolic parameters suggest a relaxation abnormality of the left ventricle, consistent with probable normal filling pressures. The right ventricle is normal in size and function. The right ventricular systolic pressure is estimated to be at least 32 mmHg based on an estimated right atrial pressure of 3 mm Hg. Borderline left atrial enlargement. There is no significant valvular heart disease. The aortic root is normal size. Procedure: A two-dimensional transthoracic echocardiogram with color flow and Doppler was performed. The study quality was technically difficult. There is no prior echocardiogram noted for this patient. The patient was in sinus rhythm with heart rates between 78-81 bpm during the exam. Left Ventricle: The left ventricle is normal in size and wall thickness. The ejection fraction is estimated to be 55-60%. Septal motion is consistent with conduction abnormality. Diastolic parameters suggest a relaxation abnormality of the left ventricle, consistent with probable normal filling pressures. Right Ventricle: The right ventricle is normal in size and function. Atria: Borderline left atrial enlargement. Right atrial size is normal. There is no Doppler evidence for an interatrial shunt. Mitral Valve: There is mild to moderate mitral annular calcification. The mitral valve leaflets are mildly calcified. The mitral valve mean gradient is 3.5 mmHg. There is mild mitral regurgitation. Aortic Valve: The aortic valve is not well visualized. There is mild aortic valve sclerosis. The peak aortic velocity is 1.8 m/sec. The aortic valve mean gradient is 7.7 mmHg. The calculated aortic valve area is 1.7 cm2. No aortic regurgitation is present. Tricuspid Valve: The tricuspid valve is normal in structure and function. There is mild tricuspid regurgitation. The right ventricular systolic pressure is estimated to be at least 32 mmHg based on an estimated right atrial pressure of 3 mm Hg. Pulmonic Valve: The pulmonic valve is not well visualized. There is no pulmonic valvular regurgitation. There is no significant valvular heart disease. Great Vessels: The aortic root is normal size. The ascending aorta could not be visualized. The IVC is of normal diameter and collapses greater than 50% with a sniff. This suggests a low right atrial pressure of 3 mm Hg. Pericardium/ Pleura There is no pericardial effusion. There is no pleural effusion. MMode/2D Measurements & Calculations LVIDd: 5.6 cm LVOT diam: 2.0 cm LVIDs: 3.8 cm Ao root diam: 3.3 cm FS: 32.4 % Ao Arch Diam (Prox Trans): 3.0 cm IVSd: 0.89 cm LVPWd: 0.96 cm LV dangelo. diameter/BSA (cm/m^2): 2.7 LV sys. diameter/BSA (cm/m^2): 1.8 LA A2 area: 21.8 cm2 RA long axis: 5.1 cm LA A4 area: 20.4 cm2 RA area: 19.2 cm2 LA length (vol): 5.5 cm RA vol: 61.1 ml LA vol: 69.1 ml RA : 29.8 ml/m2 LA vol index: 33.7 ml/m2 IVC diam: 1.3 cm RVD1 (basal): 3.8 cm TAPSE: 2.4 cm Doppler Measurements & Calculations Ao V2 max: 188.1 cm/sec LVOT Max Carmine: 103.7 cm/sec Ao V2 mean: 130.8 cm/sec LV V1 max P.3 mmHg Ao max P.2 mmHg LV V1 VTI: 20.5 cm Ao mean P.7 mmHg SRI(I,D): 1.6 cm2 Ao V2 VTI: 37.6 cm SRI(V,D): 1.7 cm2 sev ratio: 0.55 SRI indexed to BSA (cm^2/m^2): 0.80 MV E max carmine: 72.5 cm/sec TR max carmine: 270.2 cm/sec MV A max carmine: 125.9 cm/sec TR max P.3 mmHg MV E/A: 0.58 PA V2 max: 135.0 cm/sec Med Peak E' Carmine: 7.3 cm/sec PA V2 mean: 93.0 cm/sec E/E' med: 10.0 PA mean P.8 mmHg Lat Peak E' Carmine: 5.8 cm/sec PA pr(Accel): 48.2 mmHg E/E' lat: 12.6 E/e' average: 11.3 MV dec time: 0.29 sec MVA(VTI): 1.7 cm2 MV V2 mean: 87.5 cm/sec SV(LVOT): 61.6 ml MV mean P.5 mmHg MV V2 VTI: 35.6 cm Reading Physician:10:56 AM
[2023-06-19] MEDS: AZITHROMYCIN 250 MG TABLET 500 MG PO (18:26)
[2023-06-19] MEDS: cefTRIAXone 1,000 MG in SODIUM CHLORIDE 0.9% 100 ML 200 MG IV (18:26)
--- NOTE | 2023-06-19 18:31 | PC.NURSE ---
Malissa BOJORQUEZ upstairs assuming care, made aware that pt has two potassium doses left and that fluids are paused while antibiotic is being given.
[2023-06-19] MEDS: ONDANSETRON 4 MG/2 ML INJ IV (18:53)
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
[2023-06-19] MEDS: predniSONE 20 MG TABLET 40 MG PO (20:31)
[2023-06-19 21:42] LABS: Acetaminophen < 10 ug/mL (10-30); Salicylate 1.8 mg/dL (<20)
[2023-06-19] MEDS: ACETAMINOPHEN 325 MG TABLET 650 MG PO (23:08)
[2023-06-19] MEDS: NICOTINE 21 MG PATCH TOP (23:09)
[2023-06-19 23:41] LABS: HEMOLYSIS < 15 (0-50); Potassium 3.1 mmol/L (3.4-5.1)
[2023-06-20] VITALS (7 sets, daily range): BP systolic 135–188; BP diastolic 70–97; PULSE 70–100; RESP 16–18; TEMP 36–37; O2SAT 92–99
[2023-06-20] MEDS: POTASSIUM CHLORIDE 20 MEQ TAB PO (00:51)
[2023-06-20] MEDS: ACETAMINOPHEN 325 MG TABLET 650 MG PO ×2 (05:34→11:58)
[2023-06-20] MEDS: SODIUM CHLORIDE 0.9% 1,000 ML 100 ML IV ×2 (05:38→15:47)
[2023-06-20 06:06] LABS: Add Manual Diff / Slide Review NO; Basophils Absolute Auto 0 /uL (0-100); Basophils Percent Auto 0.2 % (0-2); Eosinophils Absolute Auto 0 /uL (0-450); Hematocrit 28.9 % (36-46); Hemoglobin 9.2 g/dL (12.0-16.0); Lymphocytes Absolute Auto 400 /uL (1100-4500); Lymphocytes Percent Auto 2.5 % (25-40); Mean Corpuscular HGB Conc 31.9 % (30-36); Mean Corpuscular Hemoglobin 21.8 PG (26-34); Mean Corpuscular Volume 68.4 fL (80-100); Monocytes Absolute Auto 600 /uL (0-900); Monocytes Percent Auto 4.2 % (3-14); Neutrophils Absolute Auto 13900 /uL (1500-7000); Neutrophils Percent Auto 93.1 % (50-75); Platelet Count 397 X10^3/uL (150-400); Red Blood Cell Count 4.23 X10^6/uL (4.0-5.2)
[2023-06-20 06:18] LABS: BUN Creatinine Ratio 27.8 (6-22); Blood Urea Nitrogen 15 mg/dL (7-17); Calcium 7.8 mg/dL (8.4-10.2); Carbon Dioxide 30 mmol/L (22-32); Chloride 98 mmol/L (98-107); Estimated Glomerular Filt Rate > 60 mL/min (>60); Glucose 115 mg/dL (80-110); HEMOLYSIS < 15 (0-50); Potassium 3.2 mmol/L (3.4-5.1); Sodium 129 mmol/L (137-145)
[2023-06-20 06:28] LABS: Anisocytosis 2+; Hypochromasia 1+; Microcytosis 1+; Platelet Estimate Adequate on smear; Target Cells 2+
[2023-06-20] MEDS: polyethylene glycoL 3350 17 GM POWD.PACK PO (08:50)
[2023-06-20] MEDS: SENNOSIDES 8.6 MG TABLET PO (08:50)
[2023-06-20] MEDS: AZITHROMYCIN 250 MG TABLET 500 MG PO (08:50)
[2023-06-20] MEDS: ENOXAPARIN 40 MG/0.4 ML SYRINGE SUBCUT (08:50)
[2023-06-20] MEDS: POTASSIUM CHLORIDE 20 MEQ TAB 40 MEQ PO ×2 (08:50→14:35)
[2023-06-20] MEDS: DULOXETINE 30 MG CAPSULE 60 MG PO (08:51)
[2023-06-20] MEDS: FLUoxetine 20 MG CAPSULE 40 MG PO (08:51)
[2023-06-20] MEDS: predniSONE 20 MG TABLET 40 MG PO (08:51)
[2023-06-20] MEDS: ASPIRIN EC 81 MG TABLET PO (08:51)
[2023-06-20] MEDS: TRIAMTERENE/HCTZ 37.5/25 CAPSULE 1 CAP PO (10:02)
[2023-06-20] MEDS: HYDROCODONE/ACET 5/325 TABLET 1 TAB PO ×4 (10:02→23:34)
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
[2023-06-20 11:33] LABS: Troponin I 0.318 ng/mL (0.01-0.034)
[2023-06-20] MEDS: ONDANSETRON 4 MG/2 ML INJ IV (11:58)
--- NOTE | 2023-06-20 13:20 | PT-OP ANOTE ---
PT order received. PT reviewed chart and checked in on pt who has gotten up to BSC with nsg. Pt wishing to have time on BSC. She is unable to state if she would like to return to the bed or sit up in the chair after toileting. She wishes for more time on the commode. Will con't PT efforts.
[2023-06-20] MEDS: GABAPENTIN 300 MG CAPSULE 600 MG PO ×2 (14:35→20:59)
--- NOTE | 2023-06-20 17:42 | PM.PN.1 ---
Subjective Subjective Interval history: Patient waiting to work with PT. Otherwise feels about the same, still weak. Trop downtrending. Echo reassuring. Exam Vital Signs (past 8 hours): - 06/20/23 14:00 Temperature 97.1 F L Pulse Rate 80 Respiratory Rate 16 Blood Pressure 181/84 H Pulse Oximetry 98 Oxygen Delivery Method Room Air Oxygen Flow Rate 0 Narrative Exam Narrative: GEN: pleasant HEENT: moist mucous membranes, PERRL NECK: trachea midline, no JVD CV: regular rate and rhythm, no murmurs PULM: bilaterally exp wheezes ABD: soft, nontender, large ventral hernia present, no organomegaly EXT: warm and well perfused with no edema NEURO: awake, alert, oriented, no focal deficits Objective Labs 06/20/23 05:41 06/20/23 05:41 Labs: Laboratory Results - last 24 hr 06/19/23 06/19/23 06/20/23 15:46 22:57 05:41 WBC 15.0 H RBC 4.23 Hgb 9.2 L Hct 28.9 L MCV 68.4 L MCH 21.8 L MCHC 31.9 RDW 22.0 H Plt Count 397 Neut % (Auto) 93.1 H Lymph % (Auto) 2.5 L [place] % (Auto) 4.2 Eos % (Auto) 0.0 L Baso % (Auto) 0.2 Neut # (Auto) 79025 H Lymph # (Auto) 400 L [place] # (Auto) 600 Eos # (Auto) 0 Baso # (Auto) 0 Platelet Estimate Adequate on smear RBC Morphology See below Hypochromasia 1+ H Anisocytosis 2+ H Microcytosis 1+ H Target Cells 2+ H Sodium 129 L Potassium 3.1 L 3.2 L Chloride 98 Carbon Dioxide 30 BUN 15 Creatinine 0.54 Estimated GFR > 60 BUN/Creatinine Ratio 27.8 H Glucose 115 H Calcium 7.8 L Troponin I 0.510 H* 0.350 H* Salicylates 1.8 Acetaminophen < 10 06/20/23 11:00 WBC RBC Hgb Hct MCV MCH MCHC RDW Plt Count Neut % (Auto) Lymph % (Auto) [place] % (Auto) Eos % (Auto) Baso % (Auto) Neut # (Auto) Lymph # (Auto) [place] # (Auto) Eos # (Auto) Baso # (Auto) Platelet Estimate RBC Morphology Hypochromasia Anisocytosis Microcytosis Target Cells Sodium Potassium Chloride Carbon Dioxide BUN Creatinine Estimated GFR BUN/Creatinine Ratio Glucose Calcium Troponin I 0.318 H* Salicylates Acetaminophen PFSH Medical History Obesity (BMI 30-39.9) Knee pain, right NOLA (generalized anxiety disorder) Depression Hypertension Morbid obesity with BMI of 50.0-59.9, adult Periodic limb movement disorder (PLMD) Insomnia, unspecified Obstructive sleep apnea of adult Snoring Surgical History History of gastric bypass Social History marital status: details: to Rajan Joe household members: children and other lives independently: Yes caregiver/support person: No housing: house Smoking Status: Former smoker alcohol intake: never Assessment & Plan Assessment & Plan narrative: # CAP, COPD exac -patient has eleveted WBC of 17, CT shows likely atypical PNA -rocephin and azithro -trend WBC -prednisone x5 days # elevated troponin, with some chest pressure -trop upt o 0.5, ED spoke with cards who recommended echo and possibly stress test, no heparin drip -trops now downtrending -echo reassuring, cards recommending lexiscan stress test -NPO midnight for stress test on 06/20 -tele # weakness -possibly due to PNA -PT/OT # depression/anxiety -continue cymbalta and prozac -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 DVT prophylaxis with Lovenox. Proxy is Rajan Vazquez. Dispo: Home with HH vs SNF in 1-2 days pending stress test results. Quality VTE Deep Vein Thrombosis/Pulmonary Embolism Present on Admission: No
[2023-06-20] MEDS: cefTRIAXone 1,000 MG in SODIUM CHLORIDE 0.9% 100 ML 200 MG IV (17:57)
[2023-06-20] MEDS: TRAZODONE 50 MG TABLET 150 MG PO (23:35)
[2023-06-21] VITALS: BP 145/74; PULSE 77; RESP 18; TEMP 36; O2SAT 94
[2023-06-21] MEDS: SODIUM CHLORIDE 0.9% 1,000 ML 100 ML IV ×2 (01:57→17:07)
[2023-06-21 05:54] VITALS: BP 190/100; PULSE 74; RESP 19; TEMP 36.1; O2SAT 96
[2023-06-21] MEDS: HYDROCODONE/ACET 5/325 TABLET 1 TAB PO ×5 (05:56→22:36)
[2023-06-21] MEDS: PANTOPRAZOLE DR 40 MG TABLET PO (05:57)
[2023-06-21 06:13] LABS: Add Manual Diff / Slide Review NO; Basophils Absolute Auto 100 /uL (0-100); Basophils Percent Auto 0.9 % (0-2); Eosinophils Absolute Auto 0 /uL (0-450); Eosinophils Percent Auto 0.1 % (2-4); Hematocrit 27.4 % (36-46); Hemoglobin 8.7 g/dL (12.0-16.0); Lymphocytes Absolute Auto 4900 /uL (1100-4500); Lymphocytes Percent Auto 32.8 % (25-40); Mean Corpuscular HGB Conc 31.8 % (30-36); Mean Corpuscular Volume 69.2 fL (80-100); Monocytes Absolute Auto 600 /uL (0-900); Monocytes Percent Auto 3.8 % (3-14); Neutrophils Absolute Auto 9400 /uL (1500-7000); Neutrophils Percent Auto 62.4 % (50-75); Platelet Count 422 X10^3/uL (150-400); Red Blood Cell Count 3.96 X10^6/uL (4.0-5.2); Red Cell Distribution Width 22.7 % (11.6-14.8)
[2023-06-21 06:18] LABS: BUN Creatinine Ratio 24.6 (6-22); Blood Urea Nitrogen 17 mg/dL (7-17); Calcium 7.8 mg/dL (8.4-10.2); Carbon Dioxide 30 mmol/L (22-32); Chloride 103 mmol/L (98-107); Estimated Glomerular Filt Rate > 60 mL/min (>60); Glucose 85 mg/dL (80-110); HEMOLYSIS < 15 (0-50); Potassium 3.6 mmol/L (3.4-5.1); Sodium 130 mmol/L (137-145)
[2023-06-21 06:34] LABS: Anisocytosis 2+; Hypochromasia 1+; Microcytosis 1+; Platelet Estimate Increased on smear; Target Cells 1+
--- NOTE | 2023-06-21 08:44 | PT.IIE ---
Current Diagnoses Pneumonia, unspecified organism (06/19/23) Surgical History (Last Reviewed 06/19/23 @ 12:18 by Celia Henning DO) History of gastric bypass Medical History (Last Reviewed 06/19/23 @ 12:18 by Celia Henning DO) Depression NOL[place] (generalized anxiety disorder) Hypertension Insomnia, unspecified Knee pain, right Morbid obesity with BMI of 50.0-59.9, adult Obesity (BMI 30-39.9) Obstructive sleep apnea of adult Periodic limb movement disorder (PLMD) Snoring Physical Therapy Inpatient Evaluation/Re-Eval M1 PT/OT-IP Prior Functional Status Start: 06/20/23 08:45 Freq: NEEDED Status: Active Protocol: Document 06/21/23 08:08 MB (Rec: 06/21/23 08:44 MB [id number]) Medical Review Prior Functional Status Medical History Reviewed Yes Diet/Fluid Consistency Regular Communication WNLs, conversation is somewhat tangental and pt does not directly answer questions Mobility and Gait Unclear, pt states that she has had a lot of falls and that she does not use an AD, though she has them Activities of Daily Living and IADL's Also unclear, it appears that pt may mostly have been taking sponge/washcloth baths Prior Functional Level (Other details) Pt states that she lives with her son and that she has MDD and she has not been moving for many months. Social History Household Members children,other Living Arrangements House Number of Floors (Floors) One Floor Number of Stairs To Enter/Railing? 5 steps with B rails to enter and 2 steps with right rail ascend in the home Home Environment High Toilet,Walk in Shower Home Equipment Front Wheel Walker,Four Wheel Walker,Straight Cane,Grab Bars Near Toilet,Grab Bars In Shower Employment Status Retired Additional Social History Comment Once again, home equipment history is somewhat vague and PT gently asks questions several ways, redirecting pt M2 PT-IP Current Condition Start: 06/20/23 08:45 Freq: NEEDED Status: Active Protocol: Document 06/21/23 08:08 MB (Rec: 06/21/23 08:44 MB [id number]) Physical Therapy Current Condition Current Condition Evaluation Date 06/21/23 Treatment Diagnosis Dizzy, fall, FTT M3 PT-IP Subjective Start: 06/20/23 08:45 Freq: NEEDED Status: Active Protocol: Document 06/21/23 08:08 MB (Rec: 06/21/23 08:44 MB [id number]) Subjective Physical Therapy Visit Type Type Initial Evaluation Visit Start Time 08:08 Visit Stop Time 08:24 Number of CASING FLUSHER Visits 0 Physical Therapy Visit Comments Patient Comments Pt is pleasant and conversant and conversation is tangental. She is agreeable to short PT assessment. Therapy Pain Assessment Pain When Pain Assessed At Rest Pain Present Pain Present Pain Reported Location Right forehead YOUNG Intensity 8 Scale Used Numeric (0 - 10) Pain Management Techniques Distraction,Re-positioning M4 PT-IP Mobility and Gait Start: 06/20/23 08:45 Freq: NEEDED Status: Active Protocol: Document 06/21/23 08:08 MB (Rec: 06/21/23 08:44 MB [id number]) PT-Bed Mobility Assessment Supine to Sit Supine to Sit Contact Guard Assistance Sit to Supine Sit to Supine Minimal Assistance Scooting Scooting to Edge of Bed Contact Guard Assistance Scooting Up and Down in Bed Contact Guard Assistance PT-Transfer Assessment Sit to and From Stand Sit to and from Stand Moderate Assistance,1 Person Assistance,Use of Upper Extremities Equipment Transfer Assistive Device Gait Belt,Front Wheeled Walker Orthotic/Prosthetic Devices or Brace: No Transfers Transfer Destination Bed Transfer Technique Side stepping Transfer Ability Level of Assist Moderate Assistance,1 Person Assistance,Use of Upper Extremities Comments Mobility Comments Bed mobility with HOB increased and use of rail, increased time and encouragement. Sit to supine, pt has a hard time lifting legs up into bed and PT provides minimal assistance to get left leg up into the bed. Gait Assessment Gait Gait Assistance Required: Moderate Assistance Distance (Feet) 2 Able to Maintain Weight Bearing Status Yes During Gait Assistive Devices Assistive Device Gait Belt,Front Wheeled Walker Orthotic/Prosthetic Devices or Brace: No Gait Deviations General Gait Pattern Ataxic,Decreased Stride Length ,Decreased Feet Clearance, Flexed Trunk,Step-to Gait Factors Limiting Gait Function Factors Limiting Gait Function Abnormal Tonal Influences, Decreased Activity Tolerance, Decreased Strength,Difficulty Following Directions, Incoordination,Poor Balance, Poor Safety Awareness Comments Gait Comments Pt demonstrates poor motor control of legs with moving legs in and out of the bed and her movement is floppy in nature PT-Balance Assessment Sitting Balance and Reactions Static Sitting Balance Ability Fair Dynamic Sitting Balance Ability Poor Standing Balance and Reactions Static Standing Balance Ability Poor Dynamic Standing Balance Ability Poor Device Used RW M5 PT-IP Objective Assessments Start: 06/20/23 08:45 Freq: NEEDED Status: Active Protocol: Document 06/21/23 08:08 MB (Rec: 06/21/23 08:44 MB [id number]) Orientation Orientation/Cognition Level of Alertness Alert Orientation Name,Age,Birthday,Month,Year, Place,Situation Language Function Ability No Deficits Noted Safety Awareness Decreased Safety Awareness Memory Description No Deficits Noted Gross Range of Motion Upper Extremity ROM Impairments Defer to OT Lower Extremity ROM Assessment Within Functional Limits Strength Comments Strength Comments LE weakness B vs poor command following/effort. Pt with weakness with MMT ankles and knees. M6 PT-IP Treatment Start: 06/20/23 08:45 Freq: NEEDED Status: Active Protocol: Document 06/21/23 08:08 MB (Rec: 06/21/23 08:44 MB [id number]) Physical Therapy Treatment Education Education Provided Safety M7 PT-IP Assessment and Plan Start: 06/20/23 08:45 Freq: NEEDED Status: Active Protocol: Document 06/21/23 08:08 MB (Rec: 06/21/23 08:44 MB [id number]) PT Summary Assessment and Plan Potential Rehabilitation Potential Fair Status of Condition at Evaluation Evolving Summary Impairments Pain,Strength,Balance, Coordination,Cognition,Bed Mobility,Transfers,Gait, Activity Tolerance Progress Towards Goals Slow Progress due to Activity Tolerance,Slow Progress - Other Assessment Summary Pt is a pleasant 68 y/o presenting with LE weakness, decreased functional coordination of LEs today as well as decreased functional mobility. Pt sitting upright in bed upon arrival and so orthostatics not checked. Pt with complicated recent history including FTT, falls, and pt reports of MDD and chart revealing recent traumatic loss of loved one. Pt tolerates mobility with PT and her safety and insight are impaired and conversation is somewhat tangental. Recommend ongoing PT to maximize functional I and to decrease fall risk. Goals Bed Mobility Goal Independent Transfer Goal Independent,Front Wheeled Walker Gait Goal Independent,Front Wheel Walker Gait Distance 75 Other Goals Pt will ascend and descend 5 steps with rail and no more than CGA to allow safe home entrance. Days to Meet Goals 10 Frequency of Treatment Frequency Of Treatment Once a Day Treatment Plan Physical Therapy Treatment Plan Bed Mobility Training,Transfer Training,Gait Training, Therapeutic Exercise,Balance Retraining,Discharge Planning, Hot or Cold Pack,Neuromuscular Re-ed,Coordination Retraining ,Manual Therapy Weight Bearing Status Weight Bearing Status Weight Bear as Tolerated Recommendations To Nursing Amount of Assist Needed 2 Person Assist Discharge Recommendations PT Discharge Recommendations Home vs SNF Transportation Needs at Discharge Private Vehicle,Wheelchair/ Cabulance
[2023-06-21] MEDS: ENOXAPARIN 40 MG/0.4 ML SYRINGE SUBCUT (09:12)
[2023-06-21] MEDS: polyethylene glycoL 3350 17 GM POWD.PACK PO (09:12)
[2023-06-21] MEDS: GABAPENTIN 300 MG CAPSULE 600 MG PO ×3 (09:13→21:58)
[2023-06-21] MEDS: ASPIRIN EC 81 MG TABLET PO (09:13)
[2023-06-21] MEDS: FLUoxetine 20 MG CAPSULE 40 MG PO (09:13)
[2023-06-21] MEDS: DULOXETINE 30 MG CAPSULE 60 MG PO (09:13)
[2023-06-21] MEDS: AZITHROMYCIN 250 MG TABLET 500 MG PO (09:13)
[2023-06-21] MEDS: SENNOSIDES 8.6 MG TABLET PO (09:14)
[2023-06-21] MEDS: predniSONE 20 MG TABLET 40 MG PO (09:14)
[2023-06-21] MEDS: TRIAMTERENE/HCTZ 37.5/25 CAPSULE 1 CAP PO (09:14)
[2023-06-21 09:15] VITALS: BP 179/122; PULSE 79; RESP 18; TEMP 36.5; O2SAT 95
[2023-06-21] MEDS: LORazepam 0.5 MG TABLET PO ×2 (11:06→23:03)
--- NOTE | 2023-06-21 11:06 | CM.DPC ---
Addendum entered by IVY Mae 06/21/23 13:07: ADD: Per [facility], they can accept the pt and looking at their transport schedule for tomorrow 06/21. BF Original Note: DCP SNF vs HH Per MD, pt making some progress and still with chronic pain and treatment for pneumonia and trops. Per PT, pt was able to participate a little today and feel pt would benefit from SNF if agreeable but might also make progress while admitted for possible home with HH. SW met bedside with pt and explained role and discussed SNF vs HH and pt states she is currently agreeable with either but feels maybe SNF and then home with HH would be the best to increase her strength and mobility as she typically stays in her room at home and has a bedside commode she uses. SW provided SNF Choice list and preference is to stay in [place] as she has lots of local family. SW called [facility] admissions and made new referral and they have beds this week and willing to review. [facility] completed but needs MD signature and to be faxed to [facility] Coordinator Franny lozada for review due to pt's depression/anxiety. SW also discussed [facility] and in-person and Zoom support groups and provided a print out of their information and pt very appreciative and states she plans to try to utilize their support. Plan: SW to follow closely for [facility] review to determine if they can accept and if pt makes improvements then plan of making HH referral and home plan. IVY Mae
--- NOTE | 2023-06-21 11:08 | OT.IP.EVAL ---
Current Diagnoses Pneumonia, unspecified organism (06/19/23) Past Medical History (Last Reviewed 06/21/23 @ 13:04 by Giuseppe Lloyd MD) Depression [place]OLA (generalized anxiety disorder) Hypertension Insomnia, unspecified Knee pain, right Morbid obesity with BMI of 50.0-59.9, adult Obesity (BMI 30-39.9) Obstructive sleep apnea of adult Periodic limb movement disorder (PLMD) Snoring Surgical History (Last Reviewed 06/21/23 @ 13:04 by Giuseppe Lloyd MD) History of gastric bypass Occupational Therapy Inpatient Evaluation/Re-Eval M1 PT/OT-IP Prior Functional Status Start: 06/20/23 08:45 Freq: NEEDED Status: Active Protocol: Document 06/21/23 14:26 CGR (Rec: 06/21/23 14:40 CGR [id number]) Medical Review Prior Functional Status Medical History Reviewed Yes Diet/Fluid Consistency Regular Communication WNLs, conversation is somewhat tangental and pt does not directly answer questions Mobility and Gait Per pt, she only tranfers to the BS, however later in the conversation pt states that she does her sponge bath sitting in the bathroom and therefor walks to the bathroom . Inconsistent answers. Activities of Daily Living and IADL's Per pt, she is able to do her bathing (sponge bath seated) and dressing. Pt's son does the cooking, cleaning, laundry , and all IADLs. Prior Functional Level (Other details) Pt states that she lives with her son and that she has MDD and she has not been moving for many months. Social History Household Members children,other Living Arrangements House Number of Floors (Floors) Two Floors Number of Stairs To Enter/Railing? 5 steps with B rails to enter the home then 2 steps with right rail ascend up to bedroom and bathroom once in the home. Pt stays on the manager entry. Home Environment High Toilet,Walk in Shower Home Equipment Front Wheel Walker,Four Wheel Walker,Straight Cane,Bedside Commode,Hand Held Shower,Grab Bars Near Toilet,Grab Bars In Shower Employment Status Retired M2 OT-IP Current Condition Start: 06/21/23 14:25 Freq: Status: Active Protocol: Document 06/21/23 14:26 CGR (Rec: 06/21/23 14:40 CGR [id number]) Occupational Therapy Current Condition Current Condition Evaluation Date 06/21/23 Treatment Diagnosis PNA, depression, anxiety, weakness, recent family trauma Diagnosis Onset Date 06/19/23 M3 OT- IP Subjective and Pain Start: 06/21/23 14:25 Freq: Status: Active Protocol: Document 06/21/23 14:26 CGR (Rec: 06/21/23 14:40 CGR [id number]) OT- Subjective Occupational Therapy Visit Type Type Initial Evaluation Visit Start Time 10:41 Visit Stop Time 11:08 Notes Pt getting ready to go back down for the second half of her stress test. OT Pain Assessment Pain When Pain Assessed At Rest Pain Present Pain Present Pain Reported Location back Scale Used did not rate Management Techniques Modification of Treatment,Re- positioning M4 OT- IP ADL's Start: 06/21/23 14:25 Freq: Status: Active Protocol: Document 06/21/23 14:26 CGR (Rec: 06/21/23 14:40 CGR [id number]) OT [id number] Comments OT Self-Feeding Comments not meal time OT ADL-Grooming General Evaluation Grooming Ability Standby Assistance Areas Needing Assistance Face Washing Comments OT Grooming Comments set up sitting in chair. OT ADL-Oral Care General Eval Oral Care Ability Standby Assistance Areas of Assistance Brushing Teeth Comments Oral Care Comments set up sitting in chair OT ADL-Dressing General Eval Lower Body Dressing Ability Independent Areas Needing Assistance Socks Comments OT Dressing Comments Pt was able to pull up socks without difficulty sitting up in bed. OT ADL-Toileting Comments OT Toileting Comments not performed OT ADL-Bathing Comments OT Bathing Comments not performed M5 OT- IP IADL's Start: 06/21/23 14:25 Freq: Status: Active Protocol: Document 06/21/23 14:26 CGR (Rec: 06/21/23 14:40 CGR [id number]) OT-Instrumental Activities of Daily Living Deficits IADL Deficits Identified Deficits Home Safety Awareness Awareness of Need for Assistance at Home Decreased Awareness Medication Management Medication Management Caregiver Administers Money Management Money Management Caregiver Provides Assistance Meal Preparation Meal Preparation Caregiver Provides Assist Indian Nanny Indian Nanny Caregiver Provides Assist Driving Driving Comments Pt does not drive. M6 OT- IP Functional Cognition Start: 06/21/23 14:25 Freq: Status: Active Protocol: Document 06/21/23 14:26 CGR (Rec: 06/21/23 14:40 CGR [id number]) Cognitive Factors Limiting Selfcare Function Cognitive Ability Level of Alertness Alert Patient Orientation Name,Age,Birthday,Month,Date, Year,Day of Week,Place, Situation Attention Span Ability Capable of Focused Attention, Capable of Sustained Attention Cognitive Comments Cognitive Assessment Comments Pt may benefit from SLUMS OT- Vision and Hearing OT- Hearing Assessment OT- Hearing Assessment WFL OT- Vision Assessment Visual Acuity WFL,Glasses For Reading Visual Attentiveness WFL Occular Pursuits WFL M7 OT- IP Mobility and Balance Start: 06/21/23 14:25 Freq: Status: Active Protocol: Document 06/21/23 14:26 CGR (Rec: 06/21/23 14:40 CGR [id number]) OT- Bed Mobility Assessment Supine to Sit Supine to Sit Assist Standby Assistance Scooting Scooting to Edge of Bed Standby Assistance OT-Transfer Assessment Sit to and From Stand Sit to and from Stand Minimal Assistance,Moderate Assistance Transfers Transfer Ability Minimal Assistance Technique Transfer Destination Bed,Chair,Wheelchair Transfer Technique Stand Step Pivot Devices Transfer Assistive Devices Gait Belt,Front Wheeled Walker Comments Mobility Comments Pt was able to stand from bed with min a but needed mod a for sit to stand from chair. Pt tranfered from bed to chair for ADLs then from chair to w /c for stress test. OT- Balance Assessment Sitting Balance and Reactions Static Sitting Balance Ability Good Dynamic Sitting Balance Ability Good M8 OT- IP Objective Assessments Start: 06/21/23 14:25 Freq: Status: Active Protocol: Document 06/21/23 14:26 CGR (Rec: 06/21/23 14:40 CGR [id number]) OT Gross Range of Motion Upper Extremity Range of Motion Assessment Bilaterally Impaired ROM Impairments B shld impairments, greater shld range to the RUE 0-80, Lshld 0-45 OT Strength Upper Extremity Strength Assessment Bilaterally Impaired Comments Strength Comments grossly 3+ to 4-/5 except shlds. OT- Coordination Assessment Upper Extremity Finger to Nose Test Within Functional Limits Finger Tapping Test Within Functional Limits OT-Muscle Tone Assessment Muscle Tone WNL Yes OT Sensation Assessment Edema Edema Absent M9 OT- IP Assessment and Plan Start: 06/21/23 14:25 Freq: Status: Active Protocol: Document 05/06/24 14:26 CGR (Rec: 06/21/23 14:40 CGR [id number]) OT Summary Assessment and Plan Potential Rehabilitation Potential Fair Analytic Complexity at Evaluation High Summary OT Impairments Pain,Range of Motion,Strength, Balance,Functional Cognition, Functional Mobility,Grooming, Dressing,Toileting,Bathing, Toilet Transfers,Shower Transfers,Activity Tolerance Progress Towards Goals Slow Progress due to Medical Issues,Slow Progress due to Cognition Assessment Summary Pt presents as a high complexity evaluation s/p admit for PNA and generalized weakness. Per pt, she has been minimally active for some time. Pt is minimally participatory in todays session and transferred to w/c for second part of her stress test at the end of the session . Pt would be a good candidate for SNF if she is interested in increasing her abilities. Goals Grooming Goal Independent Dressing Goal Independent Toileting Goal Independent Bathing Goal Independent Toilet Transfer Goal Independent Shower Transfer Goal Independent Days to Meet Goals 30 Frequency of Treatment Frequency Of Treatment Once a Day Treatment Plan OT Treatment Plan ADL Training,Functional Cognition Training,Functional Mobility,Patient/Family Education,Discharge Planning Other Treatment Recommendations and Next SLUMS Treatment Focus Discharge Recommendations OT Discharge Recommendations SNF Rehab Transportation Needs at Discharge Wheelchair/Cabulance
--- NOTE | 2023-06-21 13:03 | P.PN_ITS ---
Subjective Subjective Interval history: No chest pain, she also denies dyspnea. She does feel very weak. She denies any chest pain during the stress test, was unable to lay supine. Exam Vital Signs (past 8 hours): - 06/21/23 05:54 06/21/23 07:00 06/21/23 09:15 Temperature 96.9 F L 97.7 F Pulse Rate 74 79 Respiratory Rate 19 18 Blood Pressure 190/100 H 179/122 H Pulse Oximetry 96 95 Oxygen Delivery Method Room Air Oxygen Flow Rate 0 0 Oxygen Delivery Method Room Air Oxygen Flow Rate 0 Narrative Exam Narrative: NAD, alert and oriented. Fluent speech. Flat affect. Lungs are clear, normal rate and effort. Heart is regular, no murmur gallop or rub. Abdomen is soft, non distended. Extremities are free of edema. Objective Labs 06/21/23 05:43 06/21/23 05:43 Labs: Laboratory Results - last 24 hr 06/21/23 05:43 WBC 15.0 H RBC 3.96 L Hgb 8.7 L Hct 27.4 L MCV 69.2 L MCH 22.0 L MCHC 31.8 RDW 22.7 H Plt Count 422 H Neut % (Auto) 62.4 D Lymph % (Auto) 32.8 D [place] % (Auto) 3.8 Eos % (Auto) 0.1 L Baso % (Auto) 0.9 Neut # (Auto) 9400 H Lymph # (Auto) 4900 H Anderson # (Auto) 600 Eos # (Auto) 0 Baso # (Auto) 100 Platelet Estimate Increased on smear RBC Morphology See below Hypochromasia 1+ H Anisocytosis 2+ H Microcytosis 1+ H Target Cells 1+ H Sodium 130 L Potassium 3.6 Chloride 103 Carbon Dioxide 30 BUN 17 Creatinine 0.69 Estimated GFR > 60 BUN/Creatinine Ratio 24.6 H Glucose 85 Calcium 7.8 L PFS Medical History Obesity (BMI 30-39.9) Knee pain, right NOLA (generalized anxiety disorder) Depression Hypertension Morbid obesity with BMI of 50.0-59.9, adult Periodic limb movement disorder (PLMD) Insomnia, unspecified Obstructive sleep apnea of adult Snoring Surgical History History of gastric bypass Social History marital status: details: to Rajan Diaz household members: children and other lives independently: Yes caregiver/support person: No housing: house Smoking Status: Former smoker alcohol intake: never Assessment & Plan Assessment & Plan narrative: # CAP, present on admission and improving. -patient has eleveted WBC of 17, CT shows likely atypical PNA -rocephin and azithro. Continue IV antibiotics for pneumonia. -trend WBC -prednisone x5 days # COPD exacerbation, present on admission and improving. -steroids, bronchodilators and monitor improvement. # Demand ischemia (elevated troponin), present on admission and improving. -trop upt o 0.5, ED spoke with cards who recommended echo and possibly stress test, no heparin drip -trops now downtrending -echo reassuring, cards recommending lexiscan stress test -Stress test reveals no reversible defects and no wall motion abnormalities, read as low risk. # Weakness secondary to illness, present on admission and active. -possibly due to PNA -PT/OT, recommendations for group home facility rehabilitation. # Depression/anxiety, present on admission and active. 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 -continue PPI # HTN, present on admission and poorly controlled. -continue BP meds Code status is full code. DVT prophylaxis with Lovenox. Proxy is Rajan Vazquez. Dispo: Patient appears to be a good candidate for group home facility rehabilitation after treatment of pneumonia and COPD exacerbation. Quality VTE Deep Vein Thrombosis/Pulmonary Embolism Present on Admission: No
--- NOTE | 2023-06-21 14:05 | DI.NM.S_ITS ---
DATE OF SERVICE: 06/21/2023 PROCEDURE PERFORMED: Pharmacologic vasodilator stress and rest myocardial perfusion imaging with gating to assess ejection fraction and regional wall motion. ORDERING PROVIDER: Garrett Tillman M.D. INDICATIONS: The patient is a 68-year-old female admitted with back discomfort with moderately elevated troponins. CARDIAC STRESS: Per protocol, 0.4 mg of regadenoson was infused with a normal hemodynamic response. She had ongoing back pain but no chest discomfort or other anginal symptoms but had mild dyspnea. Her resting ECG showed sinus rhythm with relatively normal ST segments. There were no significant ST-segment shifts or arrhythmias with stress. Per protocol, 27.5 millicuries of technetium-99m Myoview was injected and she was imaged 20 minutes later using a gated SPECT acquisition protocol. Earlier in the day, while at rest, she had been injected with 11.8 millicuries of technetium-99m Myoview was imaged 15 minutes later, again using a gated SPECT acquisition protocol. FINDINGS: 1. Raw data: There is fair myocardial tracer uptake with a breast shadows that clearly produce some attenuation, particularly in the anterolateral segment of the left ventricle. The lung/heart ratio is normal at 0.25 with a normal TID ratio of 1.04. 2. Quantitated gated SPECT: Post stress ejection fraction is estimated at 65% without any focal wall motion abnormality, and specifically the mid anterior wall and the inferior wall have normal, brisk contractility. The resting ejection fraction is 62% with mild left ventricular enlargement with a resting end-diastolic volume of 146 mL. 3. Myocardial perfusion imaging: Post-stress supine images show a fairly normal myocardial perfusion pattern although with a mild defect in the mid anterior wall, sparing the distal anterior wall and apex, as well as a mild defect in the proximal and mid inferior wall. Unfortunately, the patient was unable to lie prone to assess for any attenuation artifact. The resting images show a very similar perfusion pattern with no significant improvement in either of the defects, and no evidence for any ischemia. IMPRESSION: 1. Probable normal myocardial perfusion study, although with reduced sensitivity because of marginal image quality and patient cooperation. 2. There is a mild fixed mid anterior defect and a mild to moderate fixed proximal to mid inferior defect, both most likely attenuation artifact given the absence of any wall motion abnormality in those distributions. Yet, a previous nontransmural infarction cannot be entirely excluded but there is no evidence for any significant myocardial ischemia. 3. Normal left ventricular systolic function with mildly increased left ventricular volumes. 4. No angina or ECG evidence of ischemia with pharmacologic vasodilator stress. She had ongoing back pain throughout the study. Jenny Santa - Javid/isacc doc#: [id number]/job#: [id number] dd: 06/21/2023 12:42:00 dt: 06/21/2023 13:52:00 DICTATING /COPIES TO: Poncho Guevara MD COPIES MNE: FRANCISCO;
[2023-06-21] MEDS: dilTIAZem CD 180 MG CAP PO ×2 (14:15→20:33)
[2023-06-21 14:16] VITALS: BP 191/103; PULSE 100; RESP 16; TEMP 35.8
[2023-06-21] MEDS: cefTRIAXone 1,000 MG in SODIUM CHLORIDE 0.9% 100 ML 200 MG IV (17:07)
[2023-06-21 18:00] VITALS: BP 153/88; PULSE 89; RESP 16; TEMP 37.1; O2SAT 96
[2023-06-21 19:55] VITALS: BP 169/86; PULSE 80; RESP 18; TEMP 36; O2SAT 95
[2023-06-21] MEDS: TRAZODONE 50 MG TABLET 150 MG PO (21:59)
[2023-06-22 00:05] VITALS: BP 173/87; PULSE 80; RESP 18; TEMP 36.1; O2SAT 93
[2023-06-22] MEDS: SODIUM CHLORIDE 0.9% 1,000 ML 100 ML IV (03:59)
[2023-06-22 04:00] VITALS: BP 182/85; PULSE 75; RESP 18; TEMP 36.1; O2SAT 98
[2023-06-22 04:31] VITALS: BP 179/88; PULSE 73; RESP 16
[2023-06-22] MEDS: HYDROCODONE/ACET 5/325 TABLET 1 TAB PO ×2 (06:22→11:22)
[2023-06-22] MEDS: PANTOPRAZOLE DR 40 MG TABLET PO (06:23)
[2023-06-22 06:32] LABS: Add Manual Diff / Slide Review NO; Basophils Absolute Auto 100 /uL (0-100); Basophils Percent Auto 0.4 % (0-2); Eosinophils Absolute Auto 0 /uL (0-450); Eosinophils Percent Auto 0.1 % (2-4); Hematocrit 29.2 % (36-46); Hemoglobin 9.2 g/dL (12.0-16.0); Lymphocytes Absolute Auto 3800 /uL (1100-4500); Lymphocytes Percent Auto 30.3 % (25-40); Mean Corpuscular HGB Conc 31.6 % (30-36); Mean Corpuscular Hemoglobin 21.9 PG (26-34); Mean Corpuscular Volume 69.1 fL (80-100); Monocytes Absolute Auto 700 /uL (0-900); Monocytes Percent Auto 5.6 % (3-14); Neutrophils Absolute Auto 8000 /uL (1500-7000); Neutrophils Percent Auto 63.6 % (50-75); Platelet Count 436 X10^3/uL (150-400); Red Blood Cell Count 4.22 X10^6/uL (4.0-5.2); Red Cell Distribution Width 22.6 % (11.6-14.8); White Blood Cell Count 12.7 X10^3/uL (4.5-11.0)
[2023-06-22 06:39] LABS: BUN Creatinine Ratio 22.8 (6-22); Blood Urea Nitrogen 13 mg/dL (7-17); Carbon Dioxide 31 mmol/L (22-32); Chloride 100 mmol/L (98-107); Estimated Glomerular Filt Rate > 60 mL/min (>60); Glucose 74 mg/dL (80-110); HEMOLYSIS < 15 (0-50); Potassium 2.9 mmol/L (3.4-5.1); Sodium 132 mmol/L (137-145)
--- NOTE | 2023-06-22 06:46 | PC.NURSE ---
Patient incontinent of 3 loose/watery BMs in first 4 hours of shift (finished one on bedpan). Dr Lucio notified and orders received for stool spec for c-diif. Patient incontinent of one more BM during shift, loose but more pasty than liquid. Spec sent. Patient put on enteric contact precautions as ordered. BP continues to run high. 182/85, HR 75. Dr Lucio notified. Re check 179/88 HR 73.
[2023-06-22 06:51] LABS: Anisocytosis 2+; Hypochromasia 1+; Microcytosis 1+; Platelet Estimate Increased on smear; Target Cells 1+
[2023-06-22 07:14] LABS: Clostridium Difficile Tox PCR Negative for C. diff (Negative)
[2023-06-22 08:00] VITALS: BP 174/75; PULSE 77; RESP 18; TEMP 35.9; O2SAT 95
[2023-06-22] MEDS: dilTIAZem CD 180 MG CAP PO (08:33)
[2023-06-22] MEDS: ENOXAPARIN 40 MG/0.4 ML SYRINGE SUBCUT (08:33)
[2023-06-22] MEDS: predniSONE 20 MG TABLET 40 MG PO (08:34)
[2023-06-22] MEDS: POTASSIUM CHLORIDE 20 MEQ TAB 40 MEQ PO (08:34)
[2023-06-22] MEDS: ACETAMINOPHEN 325 MG TABLET 650 MG PO (08:34)
[2023-06-22] MEDS: GABAPENTIN 300 MG CAPSULE 600 MG PO (08:35)
[2023-06-22] MEDS: TRIAMTERENE/HCTZ 37.5/25 CAPSULE 1 CAP PO (08:35)
[2023-06-22] MEDS: ASPIRIN EC 81 MG TABLET PO (08:35)
[2023-06-22] MEDS: DULOXETINE 30 MG CAPSULE 60 MG PO (08:36)
[2023-06-22] MEDS: FLUoxetine 20 MG CAPSULE 40 MG PO (08:36)
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
--- NOTE | 2023-06-22 08:54 | CM.DPC ---
DCP Cont. Reviewed EMR and team rounds for status updates. Spoke to [facility], they can transport pt between 11:15-11:30am, notified floor RN. Will fax d/c clinicals and PASSAR. Notified pt of plan. No further DCP needs identified at this time.
--- NOTE | 2023-06-22 09:05 | PT.IPTN ---
Current Diagnoses Pneumonia, unspecified organism (06/19/23) Physical Therapy Treatment Note M2 PT-IP Current Condition Start: 06/20/23 08:45 Freq: NEEDED Status: Active Protocol: Document 06/21/23 08:08 MB (Rec: 06/21/23 08:44 MB [id number]) Physical Therapy Current Condition Current Condition Evaluation Date 06/21/23 Treatment Diagnosis Dizzy, fall, FTT M3 PT-IP Subjective Start: 06/20/23 08:45 Freq: NEEDED Status: Active Protocol: Document 06/22/23 09:32 TS (Rec: 06/22/23 09:40 TS [id number]) Subjective Physical Therapy Visit Type Type Treatment Note Visit Start Time 09:05 Visit Stop Time 09:28 Number of MICROSOFT DEVELOPER Visits 1 Physical Therapy Visit Comments Patient Comments Pt found resting in bed, reports not sleeping much and having back pain. Pt is agreeable to PT. Therapy Pain Assessment Pain When Pain Assessed At Rest Pain Present Pain Present Pain Reported M4 PT-IP Mobility and Gait Start: 06/20/23 08:45 Freq: NEEDED Status: Active Protocol: Document 06/22/23 09:32 TS (Rec: 06/22/23 09:40 TS [id number]) PT-Bed Mobility Assessment Supine to Sit Supine to Sit Standby Assistance Sit to Supine Sit to Supine Standby Assistance Scooting Scooting to Edge of Bed Standby Assistance PT-Transfer Assessment Sit to and From Stand Sit to and from Stand Moderate Assistance,1 Person Assistance,Use of Upper Extremities Equipment Transfer Assistive Device Gait Belt,Front Wheeled Walker Orthotic/Prosthetic Devices or Brace: No Comments Mobility Comments Supine to sit SBA with HOB elevated 45D. Pt sat EOB for extended period of time, required motivation to attempt standing. STS x2 ModA with FWW, pt stood for ~15 secs , became fatigued and had some SOB. STS x1 ModA with FWW, pt sidestepped to HOB ~1' with FWW. Sit to supine into bed SBA. Pt was left in bed, all needs met. Gait Assessment Gait Gait Assistance Required: Contact Guard Assist Distance (Feet) 1 Able to Maintain Weight Bearing Status Yes During Gait Assistive Devices Assistive Device Gait Belt,Front Wheeled Walker Orthotic/Prosthetic Devices or Brace: No Gait Deviations General Gait Pattern Ataxic,Decreased Stride Length ,Decreased Feet Clearance, Flexed Trunk,Step-to Gait Factors Limiting Gait Function Factors Limiting Gait Function Abnormal Tonal Influences, Decreased Activity Tolerance, Decreased Strength,Difficulty Following Directions, Incoordination,Poor Balance, Poor Safety Awareness PT-Balance Assessment Sitting Balance and Reactions Static Sitting Balance Ability Fair Dynamic Sitting Balance Ability Fair Standing Balance and Reactions Static Standing Balance Ability Fair Dynamic Standing Balance Ability Poor Device Used RW M5 PT-IP Objective Assessments Start: 06/20/23 08:45 Freq: NEEDED Status: Active Protocol: Document 06/21/23 08:08 MB (Rec: 06/21/23 08:44 MB [id number]) Orientation Orientation/Cognition Level of Alertness Alert Orientation Name,Age,Birthday,Month,Year, Place,Situation Language Function Ability No Deficits Noted Safety Awareness Decreased Safety Awareness Memory Description No Deficits Noted Gross Range of Motion Upper Extremity ROM Impairments Defer to OT Lower Extremity ROM Assessment Within Functional Limits Strength Comments Strength Comments LE weakness B vs poor command following/effort. Pt with weakness with MMT ankles and knees. M6 PT-IP Treatment Start: 06/20/23 08:45 Freq: NEEDED Status: Active Protocol: Document 06/22/23 09:32 TS (Rec: 06/22/23 09:40 TS [id number]) Physical Therapy Treatment Education Education Provided Safety M7 PT-IP Assessment and Plan Start: 06/20/23 08:45 Freq: NEEDED Status: Active Protocol: Document 06/22/23 09:32 TS (Rec: 06/22/23 09:40 TS [id number]) PT Summary Assessment and Plan Potential Rehabilitation Potential Fair Summary Impairments Pain,Strength,Balance, Coordination,Cognition,Bed Mobility,Transfers,Gait, Activity Tolerance Progress Towards Goals Slow Progress due to Activity Tolerance,Slow Progress - Other Assessment Summary Jenny continues to make slow progress with her mobility. She is SBA for all bed mobility with HOB elevated. She performed STS x3 with ModA and use of FWW. She fatigues quickly in standing, could only maintain standing for ~15 secs before requiring to sit. PT is recommending SNF rehab at this time. Goals Bed Mobility Goal Independent Transfer Goal Independent,Front Wheeled Walker Gait Goal Independent,Front Wheel Walker Gait Distance 75 Other Goals Pt will ascend and descend 5 steps with rail and no more than CGA to allow safe home entrance. Days to Meet Goals 10 Frequency of Treatment Frequency Of Treatment Once a Day Treatment Plan Physical Therapy Treatment Plan Bed Mobility Training,Transfer Training,Gait Training, Therapeutic Exercise,Balance Retraining,Discharge Planning, Hot or Cold Pack,Neuromuscular Re-ed,Coordination Retraining ,Manual Therapy Weight Bearing Status Weight Bearing Status Weight Bear as Tolerated Recommendations To Nursing Amount of Assist Needed 1 Person Assist Discharge Recommendations PT Discharge Recommendations SNF Rehab Transportation Needs at Discharge Private Vehicle,Wheelchair/ Cabulance
== END 2023-06-22 11:45 | DRG 194 ==
LOC: ED 15:11 → AC 17:16
PROVIDERS: Internal Medicine; Admitting Provider Student in an Organized Health Care Education/Training Program; Emergency Provider Emergency Medicine; Family Provider Internal Medicine; PCP Internal Medicine; Referring Provider Emergency Medicine; Visit Provider Student in an Organized Health Care Education/Training Program
DX: J18.9 Pneumonia, unspecified organism (principal); I24.89 Other forms of acute ischemic heart disease; J44.1 Chronic obstructive pulmonary disease with (acute) exacerbation; F32.A Depression, unspecified; F41.9 Anxiety disorder, unspecified; K21.9 Gastro-esophageal reflux disease without esophagitis; E87.6 Hypokalemia; I10 Essential (primary) hypertension; F43.20 Adjustment disorder, unspecified; Z87.891 Personal history of nicotine dependence
CPT/HCPCS: 36415; 70450; 71045; 71260; 74177; 78452; 80048; 80053; 80305; 80320; 80329; 81001; 82550; 83605; 83690; 83735; 84132; 84145; 84484; 85025; 85610; 85730; 87493; 93005; 93017; 93306; 96365; 96366; 97161; 97167; 97530; 97535; 99284; A9502; G0480; J0696; J1650; J2405; J2785; Q9967

== ENCOUNTER 2024-08-19 21:17 | Inpatient (IN) | payer MEDICARE, SELFPAY ==
[2023-06-19 18:37] VITALS: BMI 32.5
[2024-08-19] VITALS (9 sets, daily range): BP systolic 183–201; BP diastolic 87–103; PULSE 79–87; RESP 18–24; TEMP 36.7; O2SAT 93–98; BMI 48.4
--- NOTE | 2024-08-19 21:26 | DI.RAD.S_ITS ---
PROCEDURE: XR CHEST 1V INDICATIONS: Chest Pain TECHNIQUE: One view of the chest was acquired. COMPARISON: [facility], CR, XR CHEST 1V, 06/19/2023, 11:07. FINDINGS: Surgical changes and devices: None. Lungs and pleura: Diffuse interstitial opacities and peribronchial cuffing. Mediastinum: Mediastinal contours appear normal. Heart size is enlarged. Bones and chest wall: No suspicious bony lesions. Overlying soft tissues appear unremarkable. IMPRESSION: [id number] pulmonary edema. Dictated by: Luisito Larson M.D. on 08/19/2024 at 22:05 Approved by: Luisito Larson M.D. on 08/19/2024 at 22:05
--- NOTE | 2024-08-19 21:29 | EKG_ITS ---
[place] [address] [address] [place] [id number] Test Date: 2024-08-19 Pat Name: Jenny Santa Department: [facility] Room: Gender: Female Mold Filler And Drainer: EVELYN : 1955 Requested By: Order Number: [id number] Reading MD: Kemar Gordillo MD Measurements Intervals [place] Rate: 85 P: 24 IN: 184 QRS: 41 QRSD: 92 T: 40 QT: 394 QTc: 468 Interpretive Statements Normal sinus rhythm Electronically Signed On 08-20-2024 8:28:34 PDT by Kemar Gordillo MD
[2024-08-19 21:57] LABS: Hematocrit 33.0 % (36-46); Hemoglobin 10.6 g/dL (12.0-16.0); Lymphocytes Absolute Auto 2200 /uL (1100-4500); Mean Corpuscular HGB Conc 32.2 % (30-36); Mean Corpuscular Hemoglobin 26.1 PG (26-34); Mean Corpuscular Volume 81.1 fL (80-100); Platelet Count 510 X10^3/uL (150-400)
[2024-08-19 21:59] LABS: Add Manual Diff / Slide Review SLIDE REVIEW
[2024-08-19 22:00] LABS: INR 1.0 (0.9-1.3); Prothrombin Time 11.2 SECONDS (9.4-12.5)
[2024-08-19 22:03] LABS: PTT Partial Thromboplastin Tim 28 SECONDS (25.1-36.5)
[2024-08-19 22:07] LABS: Alanine Aminotransferase 14 IU/L (<35); Albumin 3.7 g/dL (3.5-5.0); Albumin Globulin Ratio 0.9 (1.0-2.8); Alkaline Phosphatase 127 U/L (38-126); Blood Urea Nitrogen 22 mg/dL (7-17); Calcium 9.0 mg/dL (8.4-10.2); Carbon Dioxide 26 mmol/L (22-32); Chloride 100 mmol/L (98-107); Creatine Kinase 78 U/L (30-135); Estimated Glomerular Filt Rate > 60 mL/min (>60); Globulin 4.2 g/dL (1.7-4.1); Glucose 101 mg/dL (70-99); HEMOLYSIS < 15 (0-50); Lipase 46 U/L (23-300); Magnesium 1.6 mg/dL (1.6-2.3); Potassium 3.9 mmol/L (3.4-5.1); Sodium 135 mmol/L (137-145); Total Protein 7.9 g/dL (6.3-8.2)
[2024-08-19 22:19] LABS: NT-proBNP (BNP-Adult 18+) 1180 pg/mL (<125); Troponin I < 0.012 ng/mL (0.01-0.034)
[2024-08-19 22:23] LABS: Anisocytosis 1+
--- NOTE | 2024-08-19 22:31 | PC.NURSE ---
MARKET DEVELOPMENT MANAGER NOTE: while providing a bed bath this saddle stitch operator noticed some severe redness on pt belly and red lesions all over pt; pt is unaware of how she got those lesions states their itchy and she think they are bites. Pt states she is the only one at home getting those bites. RN aware
--- NOTE | 2024-08-19 22:36 | PC.NURSE ---
CURTAIN STRETCHER ASSEMBLER NOTE: Awa placed pt education given
[2024-08-20] VITALS (30 sets, daily range): BP systolic 112–193; BP diastolic 68–98; PULSE 78–90; RESP 14–34; TEMP 36.2–37.2; O2SAT 90–97; BMI 48.4
--- NOTE | 2024-08-20 01:06 | ED.GENADULT ---
HPI - General Adult General Chief complaint: Weakness Stated complaint: weakness Time Seen by Provider: 08/19/24 23:45 Source: patient and EMS Mode of arrival: EMS History of Present Illness HPI narrative: 69-year-old female with history of obesity, status post remote gastric bypass surgery, chronic ventral hernia, who lives at home, noted to have two falls at home today, EMS was called for lift assist, then later had ground level fall, transported here by EMS, does not admit to pain anywhere after her fall, complains of skin sores and generalized weakness. Denies chest pain shortness of breath. Has skin sores to ventral abdomen, bilateral lower extremities, unclear etiology, possible bug bites. She denies picking at the skin areas. Related Data Home Medications ?Medication ?Instructions ?Recorded ?Confirmed omeprazole 40 mg capsule,delayed 40 mg PO DAILY 07/26/17 08/20/24 release Respironics Dreamstation Auto BIPAP #1 ea 03/02/18 06/19/23 trazodone 100 mg tablet 150 mg PO BEDTIME 03/04/18 08/20/24 duloxetine 30 mg capsule,delayed 60 mg PO DAILY 06/19/23 08/20/24 release fluoxetine 20 mg capsule 40 mg PO DAILY 06/19/23 08/20/24 gabapentin 300 mg capsule 600 mg PO TID 06/19/23 08/20/24 triamterene 75 1 tab PO DAILY 06/19/23 08/20/24 mg-hydrochlorothiazide 50 mg tablet diltiazem HCl 180 mg 180 mg PO BID 06/21/23 08/20/24 capsule,extended release 24 hr losartan 100 mg tablet 100 mg PO DAILY 08/20/24 08/20/24 Previous Rx's ?Medication ?Instructions ?Recorded hydrocodone 7.5 mg-acetaminophen 1 tab PO Q6H PRN Pain (Scale Score 06/22/23 300 mg tablet 7-10) #14 tabs Allergies Allergy/AdvReac Type Severity Reaction Status Date / Time No Known Drug Allergies Allergy Verified 09/01/18 09:50 Patient History Medical History Obesity (BMI 30-39.9) Knee pain, right NOLA (generalized anxiety disorder) Depression Hypertension Morbid obesity with BMI of 50.0-59.9, adult Periodic limb movement disorder (PLMD) Insomnia, unspecified Obstructive sleep apnea of adult Snoring Surgical History History of gastric bypass Social History marital status: details: to Rajan Diaz household members: children and other lives independently: Yes caregiver/support person: No housing: house Smoking Status: Current some day smoker alcohol intake: former Smoking Status: Never smoker Exam Narrative Exam Narrative: GENERAL: Well-developed patient, in mild distress. HEAD: Atraumatic. Normocephalic. EYES: Pupils equal round and reactive. Extraocular motions intact. No scleral icterus. No injection or drainage. ENT: Nose without bleeding, purulent drainage. Throat without erythema, tonsillar hypertrophy or exudate. Airway patent. NECK: Trachea midline. Non tender CARDIOVASCULAR: Regular rate and rhythm without murmurs, gallops, or rubs. RESPIRATORY: Clear to auscultation. Breath sounds equal bilaterally. No wheezes, rales, or rhonchi. GASTROINTESTINAL: Abdomen large pannus, soft, non-tender, nondistended. Large ventral hernia, old scar. No tenderness on palpation. [place] like changes to pannus fold lateral right and left aspects of pannus crease erythema consider cellulitis. EXTREMITIES: No edema or joint tenderness. BACK: Nontender without deformity or crepitance. No flank tenderness. NEURO: AOx3. Motor functions grossly nonfocal. SKIN: Multiple scattered scabs with erythematous base, some 3 cm in diameter, no fluctuance or purulence, bilateral lower extremities, anterior abdomen. Along pannus lower abdominal crease there was also candidal erythematous like changes, possible cellulitis component. Initial Vital Signs Initial Vital Signs: Vital Signs Temperature 98.0 F 08/19/24 21:15 Pulse Rate 87 08/19/24 21:15 Respiratory Rate 21 08/19/24 21:15 Blood Pressure 189/89 H 08/19/24 21:15 Pulse Oximetry 95 08/19/24 21:15 Oxygen Delivery Method Room Air 08/19/24 21:15 Course Orders Ordered: ED Orders 08/21/24 06:00 Basic Metabolic Panel DAILY Acetaminophen (Acetaminophen 325 Mg Tablet) 650 mg PO Q6H PRN PRN Reason: Fever/Mild Pain (1-3) Hydrocodone Bitart/Acetaminophen (Hydrocodone/Acet 5/325 Tablet) 1 tab PO Q6H PRN PRN Reason: Pain, Severe (7-10) Last Admin: 08/20/24 09:32 Dose: 1 tab Documented By: PAULA Hydrocodone Bitart/Acetaminophen (Hydrocodone/Acet 5/325 Tablet) 2 tab PO Q6HR PRN PRN Reason: Pain, Severe (7-10) Last Admin: 08/20/24 13:47 Dose: 2 tab Documented By: SHAWNA Diltiazem HCl (Diltiazem Cd 180 Mg Cap) 180 mg PO BID [facility] Last Admin: 08/20/24 09:31 Dose: 180 mg Documented By: LM Duloxetine HCl (Duloxetine 30 Mg Capsule) 60 mg PO DAILY [facility] Last Admin: 08/20/24 09:17 Dose: 60 mg Documented By: LM Fluoxetine HCl (Fluoxetine 20 Mg Capsule) 40 mg PO DAILY [facility] Last Admin: 08/20/24 09:31 Dose: 40 mg Documented By: PAULA Gabapentin (Gabapentin 600 Mg Tablet) 600 mg PO TID [facility] Sodium Chloride (Normal Saline 0.9%) 1,000 mls @ 75 mls/hr IV CONT [facility] Last Admin: 08/20/24 09:17 Dose: 75 mls/hr Documented By: PAULA Ceftriaxone Sodium 1,000 mg/ (Sodium Chloride) 100 mls @ 200 mls/hr IV DAILY [facility] Last Infusion: 08/20/24 10:08 Dose: Infused Documented By: Admin: 08/20/24 09:16 Dose: 200 mls/hr Documented By: PAULA Vancomycin HCl 1,750 mg/ (Sodium Chloride) 500 mls @ 250 mls/hr IV Q24H [facility] Losartan Potassium (Losartan 50 Mg Tablet) 100 mg PO DAILY [facility] Last Admin: 08/20/24 09:32 Dose: 100 mg Documented By: PAULA Naloxone HCl (Naloxone 0.4 Mg/Ml Vial) 0.2 mg IV Q2MIN PRN PRN Reason: Opiate Reversal Nystatin (Nystatin Powder 15gm) 1 applic TOP TID PRN PRN Reason: Rash Ondansetron HCl (Ondansetron 4 Mg/2 Ml Inj) 4 mg IV Q8HR PRN PRN Reason: Nausea And Vomiting Pantoprazole Sodium (Pantoprazole Dr 40 Mg Tablet) 40 mg PO DAILY [facility] Last Admin: 08/20/24 09:31 Dose: 40 mg Documented By: PAULA Trazodone HCl (Trazodone 50 Mg Tablet) 150 mg PO BEDTIME [facility] Vancomycin HCl (Vancomycin Per Pharmacy) 1 request [facility] NOW PRN PRN Reason: celllitis Vancomycin HCl (Vancomycin Trough) 1 request [facility] 0430 [facility] Stop: 08/23/24 04:31 Discontinued Medications Gabapentin (Gabapentin 300 Mg Capsule) 600 mg PO TID [facility] Last Admin: 08/20/24 09:17 Dose: 600 mg Documented By: PAULA Ceftriaxone Sodium 1,000 mg/ (Sodium Chloride) 100 mls @ 200 mls/hr IV NOW ONE Stop: 08/20/24 01:34 Last Infusion: 08/20/24 02:40 Dose: Infused Documented By: Admin: 08/20/24 02:10 Dose: 200 mls/hr Documented By: NASIM Vancomycin HCl 2,000 mg/ (Sodium Chloride) 500 mls @ 250 mls/hr IV NOW ONE Stop: 08/20/24 03:08 Last Infusion: 08/20/24 07:00 Dose: Infused Documented By: Admin: 08/20/24 04:35 Dose: 250 mls/hr Documented By: VANDANA Vancomycin HCl (Vancomycin) 1,250 mg in 250 mls @ 167 mls/hr IV Q12H [facility] Vital Signs Vital signs: Vital Signs - 8 hr 08/19/24 21:15 08/19/24 22:14 08/19/24 22:15 Temperature 98.0 F Pulse Rate 87 82 82 Respiratory Rate 21 Blood Pressure 189/89 H Pulse Oximetry 95 98 97 Oxygen Delivery Method Room Air 08/19/24 22:15 08/19/24 22:30 08/19/24 23:00 Temperature Pulse Rate 79 Respiratory Rate 18 Blood Pressure 183/87 H 201/102 H Pulse Oximetry 94 Oxygen Delivery Method 08/19/24 23:00 08/19/24 23:07 08/19/24 23:13 Temperature Pulse Rate 79 79 Respiratory Rate 21 24 Blood Pressure 191/103 H Pulse Oximetry 94 93 Oxygen Delivery Method 08/19/24 23:13 08/19/24 23:30 08/19/24 23:31 Temperature Pulse Rate 79 79 Respiratory Rate 21 18 Blood Pressure 187/93 H Pulse Oximetry 94 93 Oxygen Delivery Method 08/19/24 23:31 08/20/24 00:00 08/20/24 00:00 Temperature Pulse Rate 79 80 Respiratory Rate 22 25 H Blood Pressure 193/98 H Pulse Oximetry 94 93 Oxygen Delivery Method 08/20/24 00:12 08/20/24 00:12 08/20/24 00:30 Temperature Pulse Rate 80 80 Respiratory Rate 22 22 Blood Pressure 185/84 H Pulse Oximetry 95 93 Oxygen Delivery Method 08/20/24 00:31 08/20/24 00:31 08/20/24 01:00 Temperature Pulse Rate 80 80 Respiratory Rate 23 21 Blood Pressure 173/83 H Pulse Oximetry 94 93 Oxygen Delivery Method 08/20/24 01:00 08/20/24 01:30 08/20/24 01:30 Temperature Pulse Rate 84 Respiratory Rate 22 Blood Pressure 180/89 H 184/88 H Pulse Oximetry 95 Oxygen Delivery Method 08/20/24 02:00 08/20/24 02:00 08/20/24 02:30 Temperature Pulse Rate 79 Respiratory Rate 18 Blood Pressure 175/85 H 184/86 H Pulse Oximetry 94 Oxygen Delivery Method 08/20/24 02:30 Temperature Pulse Rate 79 Respiratory Rate 22 Blood Pressure Pulse Oximetry 93 Oxygen Delivery Method Medical Decision Making Lab Data Lab results reviewed: Yes I reviewed the patient's lab results. Lab results narrative: White blood cell count 59784, hemoglobin 10.6, platelets [id number]. Glucose 101. BUN 22 with creatinine 0.95. Serum CO2 26. Sodium 135 with potassium 3.9, serum CO2 26. Alkaline phosphatase slight elevation, other liver functions normal. Lipase normal. Troponin negative/unmeasurable. BNP 1180. Urine with some inflammatory cells and many bacteria, urine culture triggered by protocol. 08/20/24 06:14 08/19/24 21:40 Labs: Lab Results 08/19/24 08/20/24 Range/Units 21:40 01:45 WBC 13.5 H (4.5-11.0) X10^3/uL RBC 4.07 (4.0-5.2) X10^6/uL Hgb 10.6 L (12.0-16.0) g/dL Hct 33.0 L (36-46) % MCV 81.1 (80-100) fL MCH 26.1 (26-34) PG MCHC 32.2 (30-36) % RDW 19.1 H (11.6-14.8) % Plt Count 510 H (150-400) X10^3/uL Neut % (Auto) 74.0 (50-75) % Lymph % (Auto) 15.9 L (25-40) % [place] % (Auto) 7.5 (3-14) % Eos % (Auto) 1.9 L (2-4) % Baso % (Auto) 0.7 (0-2) % Neut # (Auto) 87556 H (6471-7996) /uL Lymph # (Auto) 2200 (6507-1257) /uL [place] # (Auto) 1000 H (0-900) /uL Eos # (Auto) 300 (0-450) /uL Baso # (Auto) 100 (0-100) /uL RBC Morphology See below Anisocytosis 1+ H PT 11.2 (9.4-12.5) SECONDS INR 1.0 (0.9-1.3) APTT 28 (25.1-36.5) SECONDS Sodium 135 L (137-145) mmol/L Potassium 3.9 (3.4-5.1) mmol/L Chloride 100 (98-107) mmol/L Carbon Dioxide 26 (22-32) mmol/L BUN 22 H (7-17) mg/dL Creatinine 0.95 (0.52-1.04) mg/dL Estimated GFR > 60 (>60) mL/min BUN/Creatinine Ratio 23.2 H (6-22) Glucose 101 H (70-99) mg/dL Calcium 9.0 (8.4-10.2) mg/dL Magnesium 1.6 (1.6-2.3) mg/dL Total Bilirubin 0.4 (0.2-1.3) mg/dL AST 23 (14-36) IU/L ALT 14 (<35) IU/L Alkaline Phosphatase 127 H (38-126) U/L Total Creatine Kinase 78 (30-135) U/L Troponin I < 0.012 (0.01-0.034) ng/mL NT-Pro-B Natriuret Pep 1180 H (<125) pg/mL Total Protein 7.9 (6.3-8.2) g/dL Albumin 3.7 (3.5-5.0) g/dL Globulin 4.2 H (1.7-4.1) g/dL Albumin/Globulin Ratio 0.9 L (1.0-2.8) Lipase 46 (23-300) U/L Urine Color Yellow Urine Appearance Sl cloudy Urine pH 6.5 (4.5-8.0) Ur Specific [place] 1.020 (1.000-1.035) Urine Protein 1+ H (Negative) Urine Glucose (UA) Negative (Negative) g/dL Urine Ketones Negative (NEGATIVE) Urine Occult Blood Negative (Negative) Urine Nitrate Positive H (Negative) Urine Bilirubin Negative (NEGATIVE) Urine Urobilinogen 2.0 H (0.2) E.U./dL Ur Leukocyte Esterase Trace H (NEGATIVE) Urine RBC None seen (0-5/HPF) Urine WBC 5-10/hpf H (0-5/HPF) Ur Squamous Epith Cells 0-1 /hpf (0-5/HPF) Urine Bacteria Many (>30) H (None) Ur Culture Indicated? Specimen cultured Vol Urine Centrifuged 10ml (spun) ECG Data Interpretation: 2128, normal sinus rhythm with rate 85, no obvious ST segment elevation or depression changes. IN 184, QRS 92, QTC 468. MDM Narrative Medical decision making narrative: 69-year-old female lives at home, history of obesity, BiPAP use at night, skin sores for unclear duration of time, truncal and extremities, also pannus candidal changes with possible cellulitis component. Two falls earlier today, without obvious traumatic injury, with generalized weakness. Labs pending. DDx consider sespis with skin lesions and pannus cellulitis, dehydration, ACS, UTI, anemia, other. Lab data: White blood cell count 03238, hemoglobin 10.6, platelets [id number]. Glucose 101. BUN 22 with creatinine 0.95. Serum CO2 26. Sodium 135 with potassium 3.9, serum CO2 26. Alkaline phosphatase slight elevation, other liver functions normal. Lipase normal. Troponin negative/unmeasurable. BNP 1180. Urine with some inflammatory cells and many bacteria, urine culture triggered by protocol. IV ceftriaxone for UTI coverage, add IV vancomycin for MRSA skin coverage. Obesity, advanced age, 2 falls earlier today, generalized weakness, skin cellulitis like changes, UTI. Consider admission. 0330, case discussed with Dr. Fowler who accepts patient for admission. Critical Care Time Critical Care Time Critical Care Time: Yes Total Critical Care Time: 35 Attestation: The high probability of a clinically significant, sudden or life threatening deterioration of the [dermatologic, genitourinary, abdominopelvic] system(s) required my full and direct attention, intervention and personal management. The aggregate critical care time was [35] minutes. This time is in addition to time spent performing reported procedures but includes the following: [x] Data Review and interpretation [x] Patient assessment and monitoring of vital signs [x] Documentation [x] Medication orders and management Discharge Plan Departure Patient Disposition: Admitted As Inpatient Clinical Impression: Adult failure to thrive, Generalized weakness, Acute UTI Admit Date/Time: 08/20/24 04:03 Admit Provider: Deejay Fowler
[2024-08-20 01:51] LABS: Appearance Urine UA SL CLOUDY; Bilirubin Urine UA NEGATIVE (NEGATIVE); Color Urine UA YELLOW; Glucose Urine UA NEGATIVE (Negative); Ketones Urine UA NEGATIVE (NEGATIVE); Leukocyte Esterase Urine UA TRACE (NEGATIVE); Nitrite Urine UA POSITIVE (Negative); Occult Blood Urine UA NEGATIVE (Negative); Protein Urine UA 1+ (Negative); Specific Gravity Urine UA 1.020 (1.000-1.035); Urobilinogen Urine UA 2.0 E.U./dL (0.2)
[2024-08-20 01:52] LABS: pH Urine UA 6.5 (4.5-8.0)
[2024-08-20 01:56] LABS: Culture Indicated Urine Specimen Cultured
[2024-08-20 04:24] LABS: Lactate (Lactic Acid) 0.7 mmol/L (0.7-2.1)
[2024-08-20] MEDS: VANCOMYCIN 2,000 MG in SODIUM CHLORIDE 0.9% 500 ML 250 MG IV (04:35)
--- NOTE | 2024-08-20 04:49 | PM.HP.1 ---
History of Present Illness History of Present Illness Date Patient Seen: 08/20/24 Time Patient Seen: 04:50 Chief complaint: weakness Narrative: 69-year-old female with past medical history of morbid obesity status post gastric bypass, chronic ventral hernia, GERD, hypertension, atrial fibrillation presents with complaint of generalized weakness and fall at home. Per report, the patient had a ground-level fall at home and was too weak to get back up on her own. The patient denies any head injury or loss of consciousness. The patient did admit to have some skin sores in her pannus area. The patient also was concerned of some redness and scaling in her lower extremity edema. Otherwise the patient denies any fever, chills, nausea, vomiting, diarrhea, chest pain or shortness of breath. In the emergency room, the patient was hemodynamically stable. WBC was 13 and UA suggests UTI. By ER physician the patient does seem to have possible cellulitis of lower extremity and in the pannus area of her abdomen. The patient was given IV ceftriaxone and vancomycin. Gentle IV fluid was given as well. Lactate pending. [facility] Medical History Obesity (BMI 30-39.9) Knee pain, right NOLA (generalized anxiety disorder) Depression Hypertension Morbid obesity with BMI of 50.0-59.9, adult Periodic limb movement disorder (PLMD) Insomnia, unspecified Obstructive sleep apnea of adult Snoring Surgical History History of gastric bypass Social History marital status: details: to Rajan Diaz household members: children and other lives independently: Yes caregiver/support person: No housing: house Smoking Status: Never smoker alcohol intake: never Meds Home Medications and Allergies Home Medications ?Medication ?Instructions ?Recorded ?Confirmed ?Type omeprazole 40 mg capsule,delayed 40 mg PO DAILY 07/26/17 08/20/24 History release Respironics Dreamstation Auto BIPAP #1 ea 03/02/18 06/19/23 History trazodone 100 mg tablet 150 mg PO BEDTIME 03/04/18 08/20/24 History duloxetine 30 mg capsule,delayed 60 mg PO DAILY 06/19/23 08/20/24 History release fluoxetine 20 mg capsule 40 mg PO DAILY 06/19/23 08/20/24 History gabapentin 300 mg capsule 600 mg PO TID 06/19/23 08/20/24 History triamterene 75 1 tab PO DAILY 06/19/23 08/20/24 History mg-hydrochlorothiazide 50 mg tablet diltiazem HCl 180 mg 180 mg PO BID 06/21/23 08/20/24 History capsule,extended release 24 hr hydrocodone 7.5 mg-acetaminophen 1 tab PO Q6H PRN Pain (Scale Score 06/22/23 08/20/24 Rx 300 mg tablet 7-10) #14 tabs losartan 100 mg tablet 100 mg PO DAILY 08/20/24 08/20/24 History Allergies Allergy/AdvReac Type Severity Reaction Status Date / Time No Known Drug Allergies Allergy Verified 09/01/18 09:50 Review of Systems Review of Systems ROS: Yes All systems reviewed with the patient and are negative except as otherwise documented Exam Vital Signs (past 8 hours): - 08/19/24 21:15 08/19/24 22:14 08/19/24 22:15 Temperature 98.0 F Pulse Rate 87 82 82 Respiratory Rate 21 Blood Pressure 189/89 H Pulse Oximetry 95 98 97 Oxygen Delivery Method Room Air 08/19/24 22:15 08/19/24 22:30 08/19/24 23:00 Temperature Pulse Rate 79 Respiratory Rate 18 Blood Pressure 183/87 H 201/102 H Pulse Oximetry 94 Oxygen Delivery Method 08/19/24 23:00 08/19/24 23:07 08/19/24 23:13 Temperature Pulse Rate 79 79 Respiratory Rate 21 24 Blood Pressure 191/103 H Pulse Oximetry 94 93 Oxygen Delivery Method 08/19/24 23:13 08/19/24 23:30 08/19/24 23:31 Temperature Pulse Rate 79 79 Respiratory Rate 21 18 Blood Pressure 187/93 H Pulse Oximetry 94 93 Oxygen Delivery Method 08/19/24 23:31 08/20/24 00:00 08/20/24 00:00 Temperature Pulse Rate 79 80 Respiratory Rate 22 25 H Blood Pressure 193/98 H Pulse Oximetry 94 93 Oxygen Delivery Method 08/20/24 00:12 08/20/24 00:12 08/20/24 00:30 Temperature Pulse Rate 80 80 Respiratory Rate 22 22 Blood Pressure 185/84 H Pulse Oximetry 95 93 Oxygen Delivery Method 08/20/24 00:31 08/20/24 00:31 08/20/24 01:00 Temperature Pulse Rate 80 80 Respiratory Rate 23 21 Blood Pressure 173/83 H Pulse Oximetry 94 93 Oxygen Delivery Method 08/20/24 01:00 08/20/24 01:30 08/20/24 01:30 Temperature Pulse Rate 84 Respiratory Rate 22 Blood Pressure 180/89 H 184/88 H Pulse Oximetry 95 Oxygen Delivery Method 08/20/24 02:00 08/20/24 02:00 08/20/24 02:30 Temperature Pulse Rate 79 Respiratory Rate 18 Blood Pressure 175/85 H 184/86 H Pulse Oximetry 94 Oxygen Delivery Method 08/20/24 02:30 Temperature Pulse Rate 79 Respiratory Rate 22 Blood Pressure Pulse Oximetry 93 Oxygen Delivery Method Oxygen Delivery Method Room Air Narrative Exam Narrative: Physical Exam: GENERAL: The patient is not in any acute distressed. Awake and alert. HEENT: Nonicteric sclerae, PERRLA, EOMI. Oropharynx clear. Moist mucous membranes. Conjunctivae appear well perfused. HEART: Regular rate and rhythm without murmurs. No lower extremities edema. LUNGS: Clear to auscultation bilaterally. No wheezing, crackles or rhonchi ABDOMEN: Soft, positive bowel sounds, nontender. SKIN: Erythema noted in panus area of abdomen as well as some erythema and excoriation in LEs bilateral. Otherwise No rash, no excessive bruising, petechiae, or purpura. NEUROLOGIC: AxO x 3. Cranial nerves II-XII intact without motor/sensory deficit. Objective Labs 08/19/24 21:40 08/19/24 21:40 Labs: Laboratory Results - last 24 hr 08/19/24 08/20/24 08/20/24 21:40 01:45 04:05 WBC 13.5 H RBC 4.07 Hgb 10.6 L Hct 33.0 L MCV 81.1 MCH 26.1 MCHC 32.2 RDW 19.1 H Plt Count 510 H Neut % (Auto) 74.0 Lymph % (Auto) 15.9 L [place] % (Auto) 7.5 Eos % (Auto) 1.9 L Baso % (Auto) 0.7 Neut # (Auto) 28839 H Lymph # (Auto) 2200 [place] # (Auto) 1000 H Eos # (Auto) 300 Baso # (Auto) 100 RBC Morphology See below Anisocytosis 1+ H PT 11.2 INR 1.0 APTT 28 Sodium 135 L Potassium 3.9 Chloride 100 Carbon Dioxide 26 BUN 22 H Creatinine 0.95 Estimated GFR > 60 BUN/Creatinine Ratio 23.2 H Glucose 101 H Lactate 0.7 Calcium 9.0 Magnesium 1.6 Total Bilirubin 0.4 AST 23 ALT 14 Alkaline Phosphatase 127 H Total Creatine Kinase 78 Troponin I < 0.012 NT-Pro-B Natriuret Pep 1180 H Total Protein 7.9 Albumin 3.7 Globulin 4.2 H Albumin/Globulin Ratio 0.9 L Lipase 46 Urine Color Yellow Urine Appearance Sl cloudy Urine pH 6.5 Ur Specific [place] 1.020 Urine Protein 1+ H Urine Glucose (UA) Negative Urine Ketones Negative Urine Occult Blood Negative Urine Nitrate Positive H Urine Bilirubin Negative Urine Urobilinogen 2.0 H Ur Leukocyte Esterase Trace H Urine RBC None seen Urine WBC 5-10/hpf H Ur Squamous Epith Cells 0-1 /hpf Urine Bacteria Many (>30) H Ur Culture Indicated? Specimen cultured Vol Urine Centrifuged 10ml (spun) Assessment & Plan Assessment & Plan narrative: Fall with generalized weakness. Admit the patient to medical inpatient with telemetry. Of note patient does not have any serious injury. Generalized weakness likely due to underlying infection. Will treat underlying infection with PT OT. UTI. Continue IV ceftriaxone. Patient not septic at this time. Possible cellulitis of lower extreme edema in pannus area. Will continue IV ceftriaxone and IV vancomycin. Will also add nystatin powder to pannus area. Leukocytosis. Likely due to above. No other sign of sepsis. Monitor for now. Pending lactate we will follow this up. Atrial fibrillation. Resume home medication. Of note patient is not on anticoagulation. Hypertension. Monitor blood pressure and treat accordingly. GERD. Resume PPI. DVT prophylaxis heparin subcu. CODE STATUS DNR/DNI. Disposition likely home in 2 days. - As the provider of this telehealth evaluation, requested by the patient's evaluating physician, I attest that I introduced myself to the patient, provided my credentials and determined that telemedicine via a real-time, 2 way interactive audio and video platform is an appropriate and effective means of providing this service. - I reviewed the patient's chart and had a discussion with the member of the patient's treatment team. - The patient and I mutually agreed with continuation of this evaluation via telemedicine. The patient consented for the telemedicine evaluation. - This virtual encounter was taken place from [place] by Dr. Deejay Fowler. The patient was evaluated at [facility]. The encounter was approximately 35 minutes. The nurse was present during the entire time of the encounter and was able to move the stethoscope in appropriate directions. Time-Based Coding :: [TOTAL MINUTES] spent with patient and on the chart (including review of chart, obtaining history, exam, reviewing outside data, placing orders, documenting exam and treatment plan, and counseling patient) on [DATE].
[2024-08-20 06:22] LABS: Add Manual Diff / Slide Review NO; Hematocrit 34.3 % (36-46); Hemoglobin 10.8 g/dL (12.0-16.0); Lymphocytes Absolute Auto 1500 /uL (1100-4500); Mean Corpuscular HGB Conc 31.5 % (30-36); Mean Corpuscular Hemoglobin 25.6 PG (26-34); Mean Corpuscular Volume 81.2 fL (80-100); Platelet Count 495 X10^3/uL (150-400)
--- NOTE | 2024-08-20 08:05 | PM.PN.1 ---
Subjective Subjective Date Patient Seen: 08/20/24 Interval history: The white blood count is 11.7 with a hemoglobin of 10.8. The CMP is normal. The BNP is 1180. The UA shows 5-10 wbc's. She is now on vancomycin and ceftriaxone to treat possible UTI and to treat the multiple skin scab lesions which have small areas of surrounding redness suggesting infection? She is also quite insistent on increasing her hydrocodone dose, explaining that she takes it for chronic back pain and stating that she gets 1-2 tabs every 4 hours at home. The last prescription description from June here was for 7.5 mg Q 6 as needed. She says she goes to Dr. Chowdary in [place]. She says that the ulcer on the left nasal philtrum only recently developed. It looks like she has a skin cancer there. She says that the multiple large skin scabs are due to itching. She likely has an opioid related itching from her high dose daily use? Exam Vital Signs (past 8 hours): - 08/20/24 00:12 08/20/24 00:12 08/20/24 00:30 Pulse Rate 80 80 Respiratory Rate 22 22 Blood Pressure 185/84 H Pulse Oximetry 95 93 08/20/24 00:31 08/20/24 00:31 08/20/24 01:00 Pulse Rate 80 80 Respiratory Rate 23 21 Blood Pressure 173/83 H Pulse Oximetry 94 93 08/20/24 01:00 08/20/24 01:30 08/20/24 01:30 Pulse Rate 84 Respiratory Rate 22 Blood Pressure 180/89 H 184/88 H Pulse Oximetry 95 08/20/24 02:00 08/20/24 02:00 08/20/24 02:30 Pulse Rate 79 Respiratory Rate 18 Blood Pressure 175/85 H 184/86 H Pulse Oximetry 94 08/20/24 02:30 08/20/24 03:00 08/20/24 03:00 Pulse Rate 79 80 Respiratory Rate 22 29 H Blood Pressure 168/79 H Pulse Oximetry 93 91 08/20/24 03:30 08/20/24 03:30 08/20/24 04:00 Pulse Rate 80 Respiratory Rate 25 H Blood Pressure 172/83 H 180/86 H Pulse Oximetry 93 08/20/24 04:00 08/20/24 04:30 08/20/24 04:31 Pulse Rate 78 79 Respiratory Rate 17 24 Blood Pressure 168/79 H Pulse Oximetry 95 92 08/20/24 04:31 08/20/24 05:00 08/20/24 05:00 Pulse Rate 79 81 Respiratory Rate 22 25 H Blood Pressure 191/88 H Pulse Oximetry 92 93 08/20/24 05:30 08/20/24 05:31 08/20/24 05:31 Pulse Rate 86 83 Respiratory Rate 16 17 Blood Pressure 183/88 H Pulse Oximetry 97 95 08/20/24 06:00 08/20/24 06:01 08/20/24 06:01 Pulse Rate 82 82 Respiratory Rate 22 20 Blood Pressure 191/88 H Pulse Oximetry 96 97 Oxygen Delivery Method Room Air Narrative Exam Narrative: She is alert and oriented x3. No apparent distress. Heart is regular rate and rhythm without murmur Lungs are clear to auscultation bilaterally Extremities have no ankle edema. She has a very large ventral hernia. She has an ulceration on the left nasal philtrum. There are 7 very large heaped up scabs on the abdominal and left anterior thigh skin. Her voice is soft/hoarse at the same time. Objective Labs 08/20/24 06:14 08/19/24 21:40 Labs: Laboratory Results - last 24 hr 08/19/24 08/20/24 08/20/24 21:40 01:45 04:05 WBC 13.5 H RBC 4.07 Hgb 10.6 L Hct 33.0 L MCV 81.1 MCH 26.1 MCHC 32.2 RDW 19.1 H Plt Count 510 H Neut % (Auto) 74.0 Lymph % (Auto) 15.9 L [place] % (Auto) 7.5 Eos % (Auto) 1.9 L Baso % (Auto) 0.7 Neut # (Auto) 17152 H Lymph # (Auto) 2200 [place] # (Auto) 1000 H Eos # (Auto) 300 Baso # (Auto) 100 RBC Morphology See below Anisocytosis 1+ H PT 11.2 INR 1.0 APTT 28 Sodium 135 L Potassium 3.9 Chloride 100 Carbon Dioxide 26 BUN 22 H Creatinine 0.95 Estimated GFR > 60 BUN/Creatinine Ratio 23.2 H Glucose 101 H Lactate 0.7 Calcium 9.0 Magnesium 1.6 Total Bilirubin 0.4 AST 23 ALT 14 Alkaline Phosphatase 127 H Total Creatine Kinase 78 Troponin I < 0.012 NT-Pro-B Natriuret Pep 1180 H Total Protein 7.9 Albumin 3.7 Globulin 4.2 H Albumin/Globulin Ratio 0.9 L Lipase 46 Urine Color Yellow Urine Appearance Sl cloudy Urine pH 6.5 Ur Specific [place] 1.020 Urine Protein 1+ H Urine Glucose (UA) Negative Urine Ketones Negative Urine Occult Blood Negative Urine Nitrate Positive H Urine Bilirubin Negative Urine Urobilinogen 2.0 H Ur Leukocyte Esterase Trace H Urine RBC None seen Urine WBC 5-10/hpf H Ur Squamous Epith Cells 0-1 /hpf Urine Bacteria Many (>30) H Ur Culture Indicated? Specimen cultured Vol Urine Centrifuged 10ml (spun) 08/20/24 06:14 WBC 11.7 H RBC 4.23 Hgb 10.8 L Hct 34.3 L MCV 81.2 MCH 25.6 L MCHC 31.5 RDW 18.8 H Plt Count 495 H Neut % (Auto) 76.9 H Lymph % (Auto) 12.5 L [place] % (Auto) 8.2 Eos % (Auto) 1.8 L Baso % (Auto) 0.6 Neut # (Auto) 9000 H Lymph # (Auto) 1500 [place] # (Auto) 1000 H Eos # (Auto) 200 Baso # (Auto) 100 RBC Morphology Anisocytosis PT INR APTT Sodium Potassium Chloride Carbon Dioxide BUN Creatinine Estimated GFR BUN/Creatinine Ratio Glucose Lactate Calcium Magnesium Total Bilirubin AST ALT Alkaline Phosphatase Total Creatine Kinase Troponin I NT-Pro-B Natriuret Pep Total Protein Albumin Globulin Albumin/Globulin Ratio Lipase Urine Color Urine Appearance Urine pH Ur Specific [place] Urine Protein Urine Glucose (UA) Urine Ketones Urine Occult Blood Urine Nitrate Urine Bilirubin Urine Urobilinogen Ur Leukocyte Esterase Urine RBC Urine WBC Ur Squamous Epith Cells Urine Bacteria Ur Culture Indicated? Vol Urine Centrifuged [facility] Medical History Obesity (BMI 30-39.9) Knee pain, right NOLA (generalized anxiety disorder) Depression Hypertension Morbid obesity with BMI of 50.0-59.9, adult Periodic limb movement disorder (PLMD) Insomnia, unspecified Obstructive sleep apnea of adult Snoring Surgical History History of gastric bypass Social History marital status: details: to Rajan Diaz household members: children and other lives independently: Yes caregiver/support person: No housing: house alcohol intake: never Assessment & Plan Assessment & Plan narrative: Fall with generalized weakness. Continue 24 hours of telemetry. Of note patient does not have any serious injury. Generalized weakness likely due to underlying infection. Will treat underlying infection also the weakness with PT OT. UTI. Continue IV ceftriaxone. Patient not septic at this time. Urine analysis is less than convincing. Urine culture is pending. Possible cellulitis of multiple large skin picking ulceration/scabs of left anterior thigh and abdominal skin. Will continue IV ceftriaxone and IV vancomycin. Continue nystatin powder to pannus area. Planned wound care consult. Leukocytosis. Likely due to above. No other sign of sepsis. Monitor for now. Atrial fibrillation. Resume home medication. Of note patient is not on anticoagulation. Hypertension. Monitor blood pressure and treat accordingly. GERD. Resume PPI. Chronic low back pain and daily hydrocodone use. Agreed to hydrocodone 5/325 for moderate pain and 10/650 for severe pain to substitute for the home 7.5/300 dosing. DVT prophylaxis heparin subcu. CODE STATUS DNR/DNI. Disposition likely home in 2 days. Time-Based Coding :: [TOTAL MINUTES] spent with patient and on the chart (including review of chart, obtaining history, exam, reviewing outside data, placing orders, documenting exam and treatment plan, and counseling patient) on [DATE].
[2024-08-20] MEDS: SODIUM CHLORIDE 0.9% 1,000 ML 75 ML IV ×2 (09:17→21:54)
[2024-08-20] MEDS: DULOXETINE 30 MG CAPSULE 60 MG PO (09:17)
[2024-08-20] MEDS: GABAPENTIN 300 MG CAPSULE 600 MG PO (09:17)
[2024-08-20] MEDS: PANTOPRAZOLE DR 40 MG TABLET PO (09:31)
[2024-08-20] MEDS: LOSARTAN 50 MG TABLET 100 MG PO (09:32)
[2024-08-20] MEDS: HYDROCODONE/ACET 5/325 TABLET 1 TAB PO (09:32)
--- NOTE | 2024-08-20 12:55 | PT.IIE ---
Current Diagnoses Urinary tract infection, site not specified (08/20/24) Surgical History (Last Reviewed 06/21/23 @ 13:04 by Giuseppe Lloyd MD) History of gastric bypass Medical History (Last Reviewed 06/21/23 @ 13:04 by Giuseppe Lloyd MD) Depression NOLA (generalized anxiety disorder) Hypertension Insomnia, unspecified Knee pain, right Morbid obesity with BMI of 50.0-59.9, adult Obesity (BMI 30-39.9) Obstructive sleep apnea of adult Periodic limb movement disorder (PLMD) Snoring Physical Therapy Inpatient Evaluation/Re-Eval M1 PT/OT-IP Prior Functional Status Start: 08/20/24 12:41 Freq: NEEDED Status: Active Protocol: Document 08/20/24 12:23 MB (Rec: 08/20/24 12:54 MB Desktop) Medical Review Prior Functional Status Medical History Yes Reviewed Communication Pt tends to close eyes and whisper and does not answer all questions/participate with history taking Mobility and Gait Pt is unclear, states she cannot walk, has not been walking but then states she takes 2-3 steps to the BR for sponge bath with RW and uses BSC as well. She reports she has a w/c but it is not working well for her right now. Activities of Daily Does not answer questions clearly Living and IADL's Prior Functional See above Level (Other details ) Social History Household Members children,other Living Arrangements House Number of Stairs To When asked if she has a ramp, she states she does Enter/Railing? Home Environment High Toilet,Walk in Shower,Ramp Home Equipment Front Wheel Walker,Bedside Commode,Raised Toilet Seat w /Armrests Additional Social Pt reports she has a regular bed and she does not History Comment answer all of other baseline home set-up questions M2 PT-IP Current Condition Start: 08/20/24 12:41 Freq: NEEDED Status: Active Protocol: Document 08/20/24 12:23 MB (Rec: 08/20/24 12:54 MB Desktop) Physical Therapy Current Condition Current Condition Evaluation Date 08/20/24 Treatment Diagnosis Cellulitis and UTI M3 PT-IP Subjective Start: 08/20/24 12:41 Freq: NEEDED Status: Active Protocol: Document 08/20/24 12:23 MB (Rec: 08/20/24 12:54 MB Desktop) Subjective Physical Therapy Visit Type Type Initial Evaluation Visit Start Time 12:23 Visit Stop Time 12:40 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 Therapy Pain Assessment Pain When Pain Assessed At Rest Pain Present Pain Present Pain Reported Location Left sciatica Scale Used Not numerically rated M4 PT-IP Mobility and Gait Start: 08/20/24 12:41 Freq: NEEDED Status: Active Protocol: Document 08/20/24 12:23 MB (Rec: 08/20/24 12:54 MB Desktop) PT-Bed Mobility Assessment Rolling Type of Rolling Roll to Right Level of Assist Independent Supine to Sit Supine to Sit Independent Scooting Scooting to Edge of Independent Bed PT-Transfer Assessment Sit to and From Stand Sit to and from Contact Guard Assistance,1 Person Assistance Stand Equipment Transfer Assistive Gait Belt,Front Wheeled Walker Device Orthotic/Prosthetic No Devices or Brace: Transfers Transfer Technique Stand Step Pivot Transfer Ability Level of Assist Minimal Assistance,1 Person Assistance,2 Person Assistance,Use of Upper Extremities Comments Mobility Comments First, stood up with one person to step to the right and then sat back on bed after stepping to the chair without reaching back or communicating with PT. Next, two person assist for safety, no more than min A. Pt appears to be able to mobilize well with RW and states she cannot, c/o right knee. Gait Assessment Gait Gait Assistance Minimum Assistance,1 Person Assist,2 Person Assist Required: Distance (Feet) 1 Assistive Devices Assistive Device Gait Belt,Front Wheeled Walker Gait Deviations General Gait Pattern Antalgic,Decreased Stride Length,Decreased Feet Clearance,Flexed Trunk,Step-to Gait,Wide Based Gait Factors Limiting Gait Function Factors Limiting Poor Safety Awareness Gait Function Comments Gait Comments Stepping to the right, performed twice M5 PT-IP Objective Assessments Start: 08/20/24 12:41 Freq: NEEDED Status: Active Protocol: Document 08/20/24 12:23 MB (Rec: 08/20/24 12:54 MB Desktop) Orientation Orientation/Cognition Level of Alertness Alert Orientation Name,Age,Birthday,Month,Date,Year,Day of Week,Place, Situation Language Function No Deficits Noted Ability Safety Awareness Decreased Safety Awareness Memory Description No Deficits Noted Comments Pt does not participate well with history taking or mobility assessment today Gross Range of Motion Upper Extremity ROM Impairments Appear functional, limited participation Lower Extremity ROM Impairments Appear functional, limited participation Strength Comments Strength Comments Appear functional, limited participation Coordination Assessment Assessment Coordination NT Comments Sensation Assessment Comments Sensation Comments NT Muscle Tone Muscle Tone WNL Yes Other Assessments Other Other Assessments Multiple areas of scabs M6 PT-IP Treatment Start: 08/20/24 12:41 Freq: NEEDED Status: Active Protocol: Document 08/20/24 12:23 MB (Rec: 08/20/24 12:54 MB Desktop) Physical Therapy Treatment Exercises Exercises Ankle Pumps M7 PT-IP Assessment and Plan Start: 08/20/24 12:41 Freq: NEEDED Status: Active Protocol: Document 08/20/24 12:23 MB (Rec: 08/20/24 12:54 MB Desktop) PT Summary Assessment and Plan Potential Rehabilitation Poor Potential Status of Condition Evolving at Evaluation Summary Impairments Pain,Balance,Transfers,Gait,Activity Tolerance Assessment Summary Pt is a 69 y/o female adm with UTI, many scabs, LE cellulitis. She does not participate well with history taking, ROM, strength or mobility testing today and requires encouragement to participate. First time up, she stops stepping to the chair to the right and sits back down without communicating with PT or reaching back to bed. Pt's functional limitations today are at least partially present d/t behavioral/participatory reasons and this will make any skilled PT challenging. She is likely close to her baseline status. Goals Bed Mobility Goal Independent Transfer Goal Standby Assistance,Front Wheeled Walker Gait Goal Standby Assistance,Front Wheel Walker Gait Distance 25 Days to Meet Goals 10 Frequency of Treatment Frequency Of Once a Day Treatment Treatment Plan Physical Therapy Bed Mobility Training,Transfer Training,Gait Training, Treatment Plan Therapeutic Exercise,Balance Retraining,Discharge Planning Recommendations To Nursing Amount of Assist 2 Person Assist Needed Discharge Recommendations PT Discharge Home with 07/09 Assist Available,Home Health Recommendations Transportation Needs Private Vehicle,Wheelchair/Cabulance at Discharge - PT assist x1-2 d/t pt decreased participation and safety
[2024-08-20] MEDS: HYDROCODONE/ACET 5/325 TABLET 2 TAB PO (13:47)
[2024-08-20] MEDS: GABAPENTIN 600 MG TABLET PO ×2 (16:57→20:41)
[2024-08-20] MEDS: TRAZODONE 50 MG TABLET 150 MG PO (20:41)
[2024-08-21 01:00] VITALS: BP 111/75; PULSE 85; RESP 16; TEMP 36.6; O2SAT 96
[2024-08-21] MEDS: HYDROCODONE/ACET 5/325 TABLET 2 TAB PO ×4 (03:17→21:17)
[2024-08-21 05:00] VITALS: BP 151/73; PULSE 82; RESP 16; TEMP 36.5; O2SAT 97
[2024-08-21 06:35] LABS: Blood Urea Nitrogen 16 mg/dL (7-17); Calcium 8.4 mg/dL (8.4-10.2); Carbon Dioxide 24 mmol/L (22-32); Chloride 105 mmol/L (98-107); Estimated Glomerular Filt Rate > 60 mL/min (>60); Glucose 94 mg/dL (70-99); HEMOLYSIS < 15 (0-50); Potassium 3.4 mmol/L (3.4-5.1); Sodium 135 mmol/L (137-145)
--- NOTE | 2024-08-21 07:11 | PM.PN.1 ---
Subjective Subjective Date Patient Seen: 08/21/24 Interval history: Her multiple heaped up, scabbed over skin lesions are more evident today. They are not only in areas where she can scratch but in areas that she can not reach. They do not look completely like sweets syndrome but she will need a skin biopsy to rule that out along with ESR and CRP today. The redness surrounding these areas has improved with the antibiotics. There is a significant yeast skin fold cellulitis type rash in the right abdominal pannus. The potassium is 3.4 and the creatinine is 0.76. The blood pressure is 151/73. Exam Vital Signs (past 8 hours): - 08/20/24 23:51 08/21/24 01:00 08/21/24 05:00 Temperature 97.8 F 97.7 F Pulse Rate 85 82 Respiratory Rate 16 16 16 Blood Pressure 111/75 151/73 H Pulse Oximetry 94 96 97 Oxygen Flow Rate 0 0 0 Oxygen Delivery Method Oximask Oxygen Flow Rate 0 Narrative Exam Narrative: Alert and oriented x3. No apparent distress. Heart is regular rate and rhythm without murmur Lungs are clear to auscultation bilaterally Extremities no ankle edema Skin lesions: Multiple areas, probably 20-30 in total, on the arms, left leg, abdominal skin and back, several of these lesions are in areas where she can not reach easily. They measure between 1 cm and 2 cm diameter with central scabbing portion that is heaped up several mm. This looks very unusual. Objective Labs 08/20/24 06:14 08/21/24 06:10 Labs: Laboratory Results - last 24 hr 08/21/24 06:10 Sodium 135 L Potassium 3.4 Chloride 105 Carbon Dioxide 24 BUN 16 Creatinine 0.76 Estimated GFR > 60 BUN/Creatinine Ratio 21.1 Glucose 94 Calcium 8.4 [facility] Medical History Obesity (BMI 30-39.9) Knee pain, right NOLA (generalized anxiety disorder) Depression Hypertension Morbid obesity with BMI of 50.0-59.9, adult Periodic limb movement disorder (PLMD) Insomnia, unspecified Obstructive sleep apnea of adult Snoring Surgical History History of gastric bypass Social History marital status: details: to Rajan Diaz household members: children and other lives independently: Yes caregiver/support person: No housing: house Smoking Status: Current some day smoker alcohol intake: former Assessment & Plan Assessment & Plan narrative: Fall with generalized weakness. Generalized weakness likely due to underlying infection. Will treat underlying infection also the weakness with PT OT. UTI. Continue IV ceftriaxone. Patient not septic at this time. Urine analysis is less than convincing. Urine culture is ?very early growth. ? Possible cellulitis of multiple large skin picking ulceration/scabs of left anterior thigh and abdominal skin. Will continue IV ceftriaxone and IV vancomycin. Continue nystatin powder to pannus area. Planned wound care consult. Plan punch biopsy of skin, ESR and CRP to rule out Sweets syndrome or some other systemic/dermatologic condition. Leukocytosis. Likely due to above. No other sign of sepsis. Monitor for now. Atrial fibrillation. Resume home medication. Of note patient is not on anticoagulation. Hypertension. Monitor blood pressure and treat accordingly. GERD. Resume PPI. Chronic low back pain and daily hydrocodone use. Agreed to hydrocodone 5/325 for moderate pain and 10/650 for severe pain to substitute for the home 7.5/300 dosing. DVT prophylaxis heparin subcu. CODE STATUS DNR/DNI. Disposition likely home in 2 days. Time-Based Coding :: [TOTAL MINUTES] spent with patient and on the chart (including review of chart, obtaining history, exam, reviewing outside data, placing orders, documenting exam and treatment plan, and counseling patient) on [DATE].
[2024-08-21 08:00] VITALS: BP 135/71; PULSE 83; RESP 17; TEMP 36.4; O2SAT 94
[2024-08-21] MEDS: POTASSIUM CHLORIDE 20 MEQ TAB 40 MEQ PO (08:25)
[2024-08-21] MEDS: PANTOPRAZOLE DR 40 MG TABLET PO (08:26)
[2024-08-21] MEDS: LOSARTAN 50 MG TABLET 100 MG PO (08:26)
[2024-08-21] MEDS: GABAPENTIN 600 MG TABLET PO ×3 (08:26→21:17)
[2024-08-21] MEDS: DULOXETINE 30 MG CAPSULE 60 MG PO (08:26)
[2024-08-21] MEDS: VANCOMYCIN 1,500 MG/300 ML PIGGYBACK 200 MG IV (09:46)
--- NOTE | 2024-08-21 10:50 | OT.IP.EVAL ---
Current Diagnoses Urinary tract infection, site not specified (08/20/24) Past Medical History (Last Reviewed 06/21/23 @ 13:04 by Giuseppe Lloyd MD) Depression [place]OL[place] (generalized anxiety disorder) Hypertension Insomnia, unspecified Knee pain, right Morbid obesity with BMI of 50.0-59.9, adult Obesity (BMI 30-39.9) Obstructive sleep apnea of adult Periodic limb movement disorder (PLMD) Snoring Surgical History (Last Reviewed 06/21/23 @ 13:04 by Giuseppe Lloyd MD) History of gastric bypass Occupational Therapy Inpatient Evaluation/Re-Eval M1 PT/OT-IP Prior Functional Status Start: 08/21/24 11:20 Freq: NEEDED Status: Active Protocol: Document 08/21/24 10:50 [facility] (Rec: 08/21/24 11:40 [facility] Desktop) Medical Review Prior Functional Status Medical History Yes Reviewed Communication Pt tends to close eyes and whisper and does not answer all questions/participate with history taking Mobility and Gait Pt is unclear, states she cannot walk, has not been walking but then states she takes 2-3 steps to the BR for sponge bath with RW and uses BSC as well. She reports she has a w/c but it is not working well for her right now. Activities of Daily Does not answer questions clearly. Pt states does not Living and IADL's get dressed and just wears t-shirts. Prior Functional See above Level (Other details ) Social History Household Members children,other Living Arrangements House Number of Stairs To Pt states has 5 steps with left rail going into the Enter/Railing? house. 2 steps with left rail to the kitchen area. Home Environment High Toilet,Walk in Shower Home Equipment Front Wheel Walker,Bedside Commode M2 OT-IP Current Condition Start: 08/21/24 11:20 Freq: Status: Active Protocol: Document 08/21/24 10:50 [facility] (Rec: 08/21/24 11:40 [facility] Desktop) Occupational Therapy Current Condition Current Condition Evaluation Date 08/21/24 Treatment Diagnosis UTI, generalized weakness, skin sores Diagnosis Onset Date 08/20/24 M3 OT- IP Subjective and Pain Start: 08/21/24 11:20 Freq: Status: Active Protocol: Document 08/21/24 10:50 [facility] (Rec: 08/21/24 11:40 [facility] Desktop) OT- Subjective Occupational Therapy Visit Type Type Initial Evaluation Visit Start Time 10:30 Visit Stop Time 10:50 Occupational Therapy Visit Comments Patient Comments Pt agreed to get up to the recliner and wanting the purewick to stay in. Noted skin bleeding at her sores and nursing came in to tend to them. Patient/Caregiver Pt wanting to go to skilled rehab to get stronger. Goals OT Pain Assessment Pain When Pain Assessed At Rest Pain Present Pain Present Denied Pain M4 OT- IP ADL's Start: 08/21/24 11:20 Freq: Status: Active Protocol: Document 08/21/24 10:50 [facility] (Rec: 08/21/24 11:40 [facility] Desktop) OT HCP-Vjhd-Tirojam Comments OT Self-Feeding Not at meal time. Comments OT ADL-Grooming Comments OT Grooming Comments Pt refused. OT ADL-Oral Care Comments Oral Care Comments Pt not wanting to perform at this time. OT ADL-Dressing General Eval Lower Body Dressing Maximum Assistance Ability Areas Needing Underpants/Brief,Socks Assistance Comments OT Dressing Comments Pt needing assist to help pull up the brief up over her hips and assist with socks. OT ADL-Toileting General Evaluation Toileting Ability Minimal Assistance Areas Needing Manage Clothing Assistance Comments OT Toileting Assist with briefs. Comments OT ADL-Bathing Comments OT Bathing Comments Not performed. M5 OT- IP IADL's Start: 08/21/24 11:20 Freq: Status: Active Protocol: Document 08/21/24 10:50 [facility] (Rec: 08/21/24 11:40 [facility] Desktop) OT-Instrumental Activities of Daily Living Home Safety Awareness Awareness of Need Good Awareness for Assistance at Home Home Safety Comments Pt aware lately has not been able to care for herself appropriately and has been weak. Medication Management Medication Pt states did her meds prior. Management Comments Money Management Money Management Caregiver Provides Assistance Meal Preparation Meal Preparation Caregiver Provides Assist Marine [employer] Installer [employer]icer [employer] Installer [employer] Servicer Caregiver Provides Assist M6 OT- IP Functional Cognition Start: 08/21/24 11:20 Freq: Status: Active Protocol: Document 08/21/24 10:50 [facility] (Rec: 08/21/24 11:40 [facility] Desktop) Cognitive Factors Limiting Selfcare Function Cognitive Ability Level of Alertness Alert Patient Orientation Name,Place Attention Span Capable of Focused Attention,Capable of Sustained Ability Attention Ability to Follow Able to Follow One Step Commands Commands Cognitive Comments Cognitive Assessment Pt able to follow commands for ADL and mobility needs. Comments Pt would benefit from SLUMS. OT- Vision and Hearing OT- Hearing Assessment OT- Hearing Hearing Impaired Assessment OT- Vision Assessment Visual Acuity Glasses For Reading Visual Attentiveness WFL Occular Pursuits WFL M7 OT- IP Mobility and Balance Start: 08/21/24 11:20 Freq: Status: Active Protocol: Document 08/21/24 10:50 [facility] (Rec: 08/21/24 11:40 [facility] Desktop) OT- Bed Mobility Assessment Supine to Sit Supine to Sit Assist Contact Guard Assistance OT-Transfer Assessment Sit to and From Stand Sit to and from Minimal Assistance Stand Transfers Transfer Ability Minimal Assistance,1 Person Assistance Technique Transfer Destination Bed,Chair Devices Transfer Assistive Gait Belt,Front Wheeled Walker Devices Comments Mobility Comments Pt able to get to the edge of bed with increased time and CGA and LAURIE to stand and then LAURIE x2 from bed to the recliner. Pt is a bit unsteady on her feet and needing assist to help manage the FWW. OT- Balance Assessment Sitting Balance and Reactions Static Sitting Good Balance Ability Dynamic Sitting Fair Balance Ability Standing Balance and Reactions Static Standing Poor Balance Ability Dynamic Standing Poor Balance Ability M8 OT- IP Objective Assessments Start: 08/21/24 11:20 Freq: Status: Active Protocol: Document 08/21/24 10:50 [facility] (Rec: 08/21/24 11:40 [facility] Desktop) OT Gross Range of Motion Upper Extremity Range of Motion Assessment Bilaterally Impaired OT Strength Upper Extremity Strength Assessment Bilaterally Impaired Comments Strength Comments BUE shoulders 3-/5 to distal 4/5. OT- Coordination Assessment Upper Extremity Finger to Nose Test Within Functional Limits M9 OT- IP Assessment and Plan Start: 08/21/24 11:20 Freq: Status: Active Protocol: Document 08/21/24 10:50 [facility] (Rec: 08/21/24 11:40 [facility] Desktop) OT Summary Assessment and Plan Potential Rehabilitation Good Potential Analytic Complexity Moderate at Evaluation Summary OT Impairments Range of Motion,Strength,Balance,Functional Cognition, Functional Mobility,Self-Feeding,Grooming,Dressing, Toileting,Bathing,Toilet Transfers,Shower Transfers, Activity Tolerance Progress Towards Slow Progress due to Medical Issues,Slow Progress due Goals to Activity Tolerance Assessment Summary Pt MOD complexity and main barriers are decreased activity tolerance, endurance, and decreased dynamic balance and at this time needing 1-2 person assist for ADL and mobility needs. Pt just wanting to do transfer to the recliner. Encouraged pt to have the purewick out as pt able to mobilize on her feet and best to be gettin up to at least to the [facility]. Pt to go to skilled rehab when medically stable. Goals Self-Feeding Goal Independent Grooming Goal Independent Dressing Goal Independent Toileting Goal Independent Bathing Goal Minimal Assistance Toilet Transfer Goal Independent Shower Transfer Goal Standby Assistance Days to Meet Goals 15 Frequency of Treatment Other frequency 5x/week Treatment Plan OT Treatment Plan ADL Training,Functional Cognition Training,Functional Mobility Other Treatment LB dressing, standing at sink for ADL needs with FWW Recommendations and Next Treatment Focus Discharge Recommendations OT Discharge SNF Rehab Recommendations Transportation Needs Private Vehicle,Wheelchair/Cabulance at Discharge
--- NOTE | 2024-08-21 11:01 | PT.IPTN ---
Current Diagnoses Urinary tract infection, site not specified (08/20/24) Physical Therapy Treatment Note M2 PT-IP Current Condition Start: 08/20/24 12:41 Freq: NEEDED Status: Active Protocol: Document 08/20/24 12:23 [facility] (Rec: 08/20/24 12:54 [facility] Desktop) Physical Therapy Current Condition Current Condition Evaluation Date 08/20/24 Treatment Diagnosis Cellulitis and UTI M3 PT-IP Subjective Start: 08/20/24 12:41 Freq: NEEDED Status: Active Protocol: Document 08/21/24 10:36 [facility] (Rec: 08/21/24 11:01 [facility] Desktop) Subjective Physical Therapy Visit Type Type Treatment Note Visit Start Time 10:36 Visit Stop Time 10:46 Number of INTERNAL SALESPERSON Visits 0 Physical Therapy Visit Comments Patient Comments Son nearby and leaves before treatment, asks therapist not to work pt too hard. Pt is agreeable to PT. Therapy Pain Assessment Pain When Pain Assessed At Rest Pain Present Pain Present Pain Reported Location Left sciatica Scale Used Not rated M4 PT-IP Mobility and Gait Start: 08/20/24 12:41 Freq: NEEDED Status: Active Protocol: Document 08/21/24 10:36 [facility] (Rec: 08/21/24 11:01 [facility] Desktop) PT-Bed Mobility Assessment Rolling Type of Rolling Roll to Right Level of Assist Independent Supine to Sit Supine to Sit Independent PT-Transfer Assessment Sit to and From Stand Sit to and from Contact Guard Assistance,1 Person Assistance Stand Equipment Transfer Assistive Gait Belt,Front Wheeled Walker Device Orthotic/Prosthetic No Devices or Brace: Transfers Transfer Technique Stepping to the right to chair Transfer Ability Level of Assist Minimal Assistance,1 Person Assistance,2 Person Assistance,Use of Upper Extremities Comments Mobility Comments Pt uses rail with bed mobility, 2 people nearby for stepping from the bed to the chair given her responses last date and PT observes right LE hyperextension with standing and stepping and right leg does appear functionally weak. Dynamic standing balance with RW with CGA as pt manages brief and see OT note for comments about this ADL Gait Assessment Gait Gait Assistance Minimum Assistance,1 Person Assist,2 Person Assist Required: Distance (Feet) 1 Assistive Devices Assistive Device Gait Belt,Front Wheeled Walker Gait Deviations General Gait Pattern Antalgic,Decreased Stride Length,Decreased Feet Clearance,Flexed Trunk,Step-to Gait,Wide Based Gait Factors Limiting Gait Function Factors Limiting Poor Safety Awareness Gait Function Comments Gait Comments See comments above about right leg, left with OT and pt in chair M5 PT-IP Objective Assessments Start: 08/20/24 12:41 Freq: NEEDED Status: Active Protocol: Document 08/20/24 12:23 [facility] (Rec: 08/20/24 12:54 [facility] Desktop) Orientation Orientation/Cognition Level of Alertness Alert Orientation Name,Age,Birthday,Month,Date,Year,Day of Week,Place, Situation Language Function No Deficits Noted Ability Safety Awareness Decreased Safety Awareness Memory Description No Deficits Noted Comments Pt does not participate well with history taking or mobility assessment today Gross Range of Motion Upper Extremity ROM Impairments Appear functional, limited participation Lower Extremity ROM Impairments Appear functional, limited participation Strength Comments Strength Comments Appear functional, limited participation Coordination Assessment Assessment Coordination NT Comments Sensation Assessment Comments Sensation Comments NT Muscle Tone Muscle Tone WNL Yes Other Assessments Other Other Assessments Multiple areas of scabs M6 PT-IP Treatment Start: 08/20/24 12:41 Freq: NEEDED Status: Active Protocol: Document 08/20/24 12:23 [facility] (Rec: 08/20/24 12:54 [facility] Desktop) Physical Therapy Treatment Exercises Exercises Ankle Pumps M7 PT-IP Assessment and Plan Start: 08/20/24 12:41 Freq: NEEDED Status: Active Protocol: Document 08/21/24 10:36 [facility] (Rec: 08/21/24 11:01 [facility] Desktop) PT Summary Assessment and Plan Potential Rehabilitation Poor Potential Status of Condition Evolving at Evaluation Summary Impairments Pain,Balance,Transfers,Gait,Activity Tolerance Progress Towards Slow Progress - Other Goals Assessment Summary Pt self-limits doffing pure wick to try to work on bladder control adn toileting. She agrees to getting up to the chair. Her mobility is much like last date. Today, pt sates she has stairs to enter home and in the home. She presents with right leg weakness. Goals Bed Mobility Goal Independent Transfer Goal Standby Assistance,Front Wheeled Walker Gait Goal Standby Assistance,Front Wheel Walker Gait Distance 25 Other Goals Pt will ascend and descend 5 steps with LRAD and/or use of rail and no more than CGA to allow safe home entry. Days to Meet Goals 10 Frequency of Treatment Frequency Of Once a Day Treatment Treatment Plan Physical Therapy Bed Mobility Training,Transfer Training,Gait Training, Treatment Plan Therapeutic Exercise,Balance Retraining,Discharge Planning Recommendations To Nursing Amount of Assist 2 Person Assist Needed Discharge Recommendations PT Discharge Home with 07/09 Assist Available,Home Health,SNF vs Recommendations Acute Rehab Transportation Needs Private Vehicle,Wheelchair/Cabulance at Discharge - PT assist x1-2 d/t pt decreased participation and safety
--- NOTE | 2024-08-21 11:13 | CM.DANOTE ---
Addendum entered by IVY Mae 08/21/24 14:53: ADD: Per AD Counselors, pt's insurance corrected to [employer] MCR Adv, OCN from Medicare and [employer]. SW updated [facility] on pt's managed MCR plan and provided OT eval and updated PT note from today and [facility] willing to submit for SNF auth today. BF Original Note: Patient is a 69 yo female who was admitted INPT Status on 08/20/24 for UTI/Cellulitis/weakness. Pt has [facility] and [employer] for insurance and her PCP is Dr. Thomas Chowdary in [place] at [facility]. EMR was reviewed. Per MD, pt with hx of chronic pain issues and admitted after GLF with weakness and determined UTI and cellulitis with skin lesions. IV abx and to work with PT/OT and placed Wound Consult order. Likely another couple days. Per PT, pt may be close to baseline as pt not very mobile at home and recommending SNF vs HH pending progress. SW called [facility] and alerted them to Wound Consult order for Dr. Mccoy due to many lesions on pt's body. SW met bedside with pt and explained role and she confirms she still lives at home in [place] with her adult son and roommate. Pt confirms she mostly remains in her room and manages most of her ADLs at baseline with bedside commode and walker and w/c. Pt states she has become less mobile in the past few months due to chronic very painful knees but has not been able to f/u with Ortho Consult to determine if pt is a candidate for knee surgery due to backing myself in a corner and getting to a point where it has become very difficult for me to get out of the house since I have stairs and I'm weak and my knees and back hurt. Pt is motivated to improve in strength and mobility towards having more quality of life and preference is SNF at d/c. Pt has hx of [facility] SNF in June 2023 last year and did have HH after SNF and pt found both helpful. Provided SNF choice list and pt's preference remains [facility] to stay in [place] and requests referral for review. LINDSEY made initial referral to Josefina at [facility] and secure emailed clinicals for review. PASRR done but needs MD signature for exempted hospital discharge for baseline depression. SW inquired about DPOA and pt states she has not completed official pwk and SW discussed the importance and pt states she likely would choose her son and sister. Plan; SW to follow closely for [facility] review to determine if they can accept pt for rehab before safe d/c home and pt would be MCR eligible to d/c to SNF on 08/23. IVY Mae Discharge Planning/Care Management CM Discharge Assessment Start: 08/20/24 05:24 Freq: Status: Active Protocol: Document 08/21/24 10:50 [facility] (Rec: 08/21/24 11:13 [facility] [id number]) Discharge Planning Assessment Assigned Discharge IVY Nguyễn Retirement Administrator DPOA/Assigned none, gave pwk and discussed importance Designee Name Advance Directives? No Advance Directives No on File History Provided By Patient,Medical Record Has Patient been No admitted in last 30 days? Comment last admit in June 2023 last year and went to [facility] Prior Living House Arrangements Household Members children,other Comment adult son and roommate live at home with pt Type of Relies on Others transporation used prior to admit Independent with ADL Yes: somewhat 's Is patient alert and Yes oriented? Needs Assistance Meal Prep,Managing Medications,Home Chores / Shopping With Caregiver for No Another DME Already Rented / Wheelchair,FWW / Walker,Cane,Bedside Commode Owned Patient/Family [facility] Facility,Home with Home Health Preference Comment Pt hopeful for SNF to increase mobility and strength before home with HH Barriers to No Discharge Discharge Plan F[facility] Facility Transportation If SNF accepts, facility van Arrangement Referrals Initiated Fpc If patient plan is Yes SNF: Has PASSR been completed? Medicare Choice List Yes Provided Medicare choice list patient reviewed on electronic tablet with SNF/HH Preference [facility] Has Agency SNF been Yes contacted Whiteboard Updated Yes in Patient Room with name and ext. # of Battery Vent Plug Inserter Review Status In Process Please Provide Date 08/21/24 Initial DC Assessment Was Performed Next Review Type Continued Stay Review
[2024-08-21 12:00] VITALS: BP 149/71; PULSE 79; RESP 16; TEMP 35.8; O2SAT 93
[2024-08-21] MEDS: SODIUM CHLORIDE 0.9% 1,000 ML 75 ML IV (12:44)
[2024-08-21] MEDS: diphenhydrAMINE 25 MG TABLET PO ×2 (14:48→21:19)
--- NOTE | 2024-08-21 16:07 | PM.CN ---
History of Present Illness Consult details Date Patient Seen: 08/21/24 Time Patient Seen: 15:30 Chief complaint: weakness Narrative: The patient is a 69-year-old female with obesity, hypertension, sleep apnea, and atrial fibrillation who was recently admitted to the hospital with a UTI and cellulitis on her lower extremities. She was found to have multiple eschars with infection on both lower extremities, arms, as well as ulcers in the right groin and on her back. The patient was started on IV antibiotic therapy and the redness around the eschars and ulcers has improved. She has had some slight drainage from some of the ulcers. She reports that the ulcers developed about 10-14 days ago after scratching her arms and legs. She has never had any similar problems in the past. Meds Home Medications and Allergies Home Medications ?Medication ?Instructions ?Recorded ?Confirmed ?Type omeprazole 40 mg capsule,delayed 40 mg PO DAILY 07/26/17 08/20/24 History release Respironics Dreamstation Auto BIPAP #1 ea 03/02/18 08/20/24 History trazodone 100 mg tablet 150 mg PO BEDTIME 03/04/18 08/20/24 History duloxetine 30 mg capsule,delayed 60 mg PO DAILY 06/19/23 08/20/24 History release fluoxetine 20 mg capsule 40 mg PO DAILY 06/19/23 08/20/24 History gabapentin 300 mg capsule 600 mg PO TID 06/19/23 08/20/24 History triamterene 75 1 tab PO DAILY 06/19/23 08/20/24 History mg-hydrochlorothiazide 50 mg tablet diltiazem HCl 180 mg 180 mg PO BID 06/21/23 08/20/24 History capsule,extended release 24 hr hydrocodone 7.5 mg-acetaminophen 1 tab PO Q6H PRN Pain (Scale Score 06/22/23 08/20/24 Rx 300 mg tablet 7-10) #14 tabs losartan 100 mg tablet 100 mg PO DAILY 08/20/24 08/20/24 History Allergies Allergy/AdvReac Type Severity Reaction Status Date / Time No Known Drug Allergies Allergy Verified 09/01/18 09:50 Review of Systems Constitutional Comments: The patient has had some generalized weakness but otherwise has not had any other recent changes in her overall health. Integumentary/Breasts Comments: Positive for itching Exam Vital Signs (past 8 hours): - 08/21/24 12:00 Temperature 96.5 F L Pulse Rate 79 Respiratory Rate 16 Blood Pressure 149/71 H Pulse Oximetry 93 Oxygen Flow Rate 0 Oxygen Delivery Method Oximask Oxygen Flow Rate 0 Const Other: Obese female, alert and oriented, no apparent distress Skin Other: Multiple scattered firm dry eschars on both lower extremities and right arm. Superficial ulcers on back and right groin. Resolving erythema. Objective Labs 08/20/24 06:14 08/21/24 06:10 Labs: Laboratory Results - last 24 hr 08/21/24 08/21/24 06:10 14:27 ESR 49 H Sodium 135 L Potassium 3.4 Chloride 105 Carbon Dioxide 24 BUN 16 Creatinine 0.76 Estimated GFR > 60 BUN/Creatinine Ratio 21.1 Glucose 94 Calcium 8.4 C-Reactive Protein 0.5 PFSH Medical History Obesity (BMI 30-39.9) Knee pain, right [place]OL[place] (generalized anxiety disorder) Depression Hypertension Morbid obesity with BMI of 50.0-59.9, adult Periodic limb movement disorder (PLMD) Insomnia, unspecified Obstructive sleep apnea of adult Snoring Surgical History History of gastric bypass Social History marital status: details: to Rajan Diaz household members: children and other lives independently: Yes caregiver/support person: No housing: house Tobacco & Substance Use Smoking Status: Current some day smoker alcohol intake: former Assessment & Plan Assessment and plan (1) 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 The erythema has improved with antibiotic therapy. Plan for culture of open ulcer on back. Apply Betadine daily to the eschars and follow up in wound center after discharge for further evaluation and treatment. Time-Based Coding :: [45 MINUTES] spent with patient and on the chart (including review of chart, obtaining history, exam, reviewing outside data, placing orders, documenting exam and treatment plan, and counseling patient) on [08/21/2024].
[2024-08-21 17:00] VITALS: BP 144/87; PULSE 82; RESP 16; TEMP 36; O2SAT 96
[2024-08-21 20:00] VITALS: BP 156/76; PULSE 73; RESP 17; TEMP 36.6; O2SAT 96
[2024-08-21] MEDS: HEPARIN 5,000 UNIT/ML VIAL 5000 UNIT SUBCUT (21:17)
[2024-08-21] MEDS: TRAZODONE 50 MG TABLET 150 MG PO (21:17)
[2024-08-22 01:30] VITALS: BP 147/83; PULSE 75; RESP 16; TEMP 36.5; O2SAT 96
[2024-08-22] MEDS: VANCOMYCIN 1,500 MG/300 ML PIGGYBACK 200 MG IV ×2 (02:14→21:44)
[2024-08-22] MEDS: HYDROCODONE/ACET 5/325 TABLET 2 TAB PO ×3 (04:05→21:38)
[2024-08-22] MEDS: diphenhydrAMINE 25 MG TABLET PO ×3 (04:05→21:37)
[2024-08-22 06:10] LABS: Blood Urea Nitrogen 19 mg/dL (7-17); Calcium 8.5 mg/dL (8.4-10.2); Carbon Dioxide 24 mmol/L (22-32); Chloride 107 mmol/L (98-107); Estimated Glomerular Filt Rate > 60 mL/min (>60); Glucose 95 mg/dL (70-99); HEMOLYSIS < 15 (0-50); Magnesium 1.7 mg/dL (1.6-2.3); Potassium 3.7 mmol/L (3.4-5.1); Sodium 136 mmol/L (137-145)
[2024-08-22 07:00] VITALS: BP 138/62; PULSE 88; RESP 20; TEMP 36.6; O2SAT 93
--- NOTE | 2024-08-22 07:33 | P.DS_ITS ---
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 08/20/24 03:25 Consult to Occupational Therapy Evaluate & Treat Comment: Physician Instructions: Evaluate and treat Consult to Physical Therapy Evaluate & Treat Comment: Physician Instructions: Evaluate and Treat 08/20/24 13:11 Consult to Dietitian, Adult Urgent Comment: Reason For Exam: Multiple large skin scabs Consult to Wound Care Routine Comment: Consulting Provider: [facility] Discharge provider: Ronny Whitney MD Summary Hospital Course Hospital Course: Fall with generalized weakness. Generalized weakness likely due to underlying infection. Will treat underlying infection also the weakness with PT OT. UTI. Continue IV ceftriaxone. Patient not septic at this time. Urine analysis is less than convincing. Urine culture is ?very early growth. ? Possible cellulitis of multiple large skin picking ulceration/scabs of left anterior thigh and abdominal skin. Will continue IV ceftriaxone and IV vancomycin. Continue nystatin powder to pannus area. Planned wound care consult. Plan punch biopsy of skin, ESR and CRP to rule out Sweets syndrome or some other systemic/dermatologic condition. Leukocytosis. Likely due to above. No other sign of sepsis. Monitor for now. Atrial fibrillation. Resume home medication. Of note patient is not on anticoagulation. Hypertension. Monitor blood pressure and treat accordingly. GERD. Resume PPI. Chronic low back pain and daily hydrocodone use. Agreed to hydrocodone 5/325 for moderate pain and 10/650 for severe pain to substitute for the home 7.5/300 dosing. DVT prophylaxis heparin subcu. CODE STATUS DNR/DNI. Exam Vital Signs (past 8 hours): - 08/22/24 01:30 Temperature 97.7 F Pulse Rate 75 Respiratory Rate 16 Blood Pressure 147/83 H Pulse Oximetry 96 Oxygen Flow Rate 0 Oxygen Delivery Method Oximask Oxygen Flow Rate 0 Objective Labs 08/20/24 06:14 08/22/24 05:10 Labs: Laboratory Results - last 24 hr 08/21/24 08/22/24 14:27 05:10 ESR 49 H Sodium 136 L Potassium 3.7 Chloride 107 Carbon Dioxide 24 BUN 19 H Creatinine 0.87 Estimated GFR > 60 BUN/Creatinine Ratio 21.8 Glucose 95 Calcium 8.5 Magnesium 1.7 C-Reactive Protein 0.5 PFSH Medical History Obesity (BMI 30-39.9) Knee pain, right NOLA (generalized anxiety disorder) Depression Hypertension Morbid obesity with BMI of 50.0-59.9, adult Periodic limb movement disorder (PLMD) Insomnia, unspecified Obstructive sleep apnea of adult Snoring Surgical History History of gastric bypass Social History marital status: details: to Rajan Diaz household members: children and other lives independently: Yes caregiver/support person: No housing: house Smoking Status: Current some day smoker alcohol intake: former Discharge Plan Discharge orders & Medications Prescriptions: No Action gabapentin 300 mg capsule 600 mg PO TID duloxetine 30 mg capsule,delayed release(DR/EC) 60 mg PO DAILY triamterene-hydrochlorothiazid 75-50 mg tablet 1 tab PO DAILY fluoxetine 20 mg capsule 40 mg PO DAILY diltiazem HCl 180 mg capsule,extended release 24hr 180 mg PO BID hydrocodone-acetaminophen 7.5-300 mg tablet 1 tab PO Q6H PRN (Reason: Pain (Scale Score 7-10)) Qty: 14 0RF losartan 100 mg tablet 100 mg PO DAILY omeprazole 40 mg capsule,delayed release(DR/EC) 40 mg PO DAILY (DME) [employer] BIPAP Qty: 1 Dose Instruction: As directed Patient Comments: Pressure: 8-16 cmH2O DME: [place] Rx Instructions: As directed trazodone 100 mg tablet 150 mg PO BEDTIME Follow up/Referrals: Maylin Green MD [Primary Care Provider, Internal Medicine] Discharge Data Primary Care Provider: Maylin Green
[2024-08-22 08:23] VITALS: BP 138/62
[2024-08-22] MEDS: LOSARTAN 50 MG TABLET 100 MG PO (08:23)
[2024-08-22] MEDS: GABAPENTIN 600 MG TABLET PO ×3 (08:23→21:38)
[2024-08-22] MEDS: HEPARIN 5,000 UNIT/ML VIAL 5000 UNIT SUBCUT ×2 (08:24→21:38)
[2024-08-22] MEDS: DULOXETINE 30 MG CAPSULE 60 MG PO (08:24)
[2024-08-22] MEDS: PANTOPRAZOLE DR 40 MG TABLET PO (08:24)
[2024-08-22] MEDS: MAGNESIUM CHLORIDE 64 MG TABLET 128 MG PO (09:05)
--- NOTE | 2024-08-22 14:42 | PT-IP ANOTE ---
PT reviewed chart to prepare to check on pt for treatment. Pt currently refusing mobility. Con't PT efforts another date.
--- NOTE | 2024-08-22 14:45 | OT.IP.TRT ---
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 (08/20/24) Non-pressure chronic ulcer of skin of other sites with unspecified severity (08/20/24) Urinary tract infection, site not specified (08/20/24) Occupational Therapy Treatment Note M2 OT-IP Current Condition Start: 08/21/24 11:20 Freq: Status: Active Protocol: Document 08/21/24 10:50 [facility] (Rec: 08/21/24 11:40 [facility] Desktop) Occupational Therapy Current Condition Current Condition Evaluation Date 08/21/24 Treatment Diagnosis UTI, generalized weakness, skin sores Diagnosis Onset Date 08/20/24 M3 OT- IP Subjective and Pain Start: 08/21/24 11:20 Freq: Status: Active Protocol: Document 08/22/24 15:00 [facility] (Rec: 08/22/24 15:03 [facility] Desktop) OT- Subjective Occupational Therapy Visit Type Type Treatment Note Visit Start Time 14:30 Visit Stop Time 14:45 Occupational Therapy Visit Comments Patient Comments Pt just used the bathroom earlier but agreed to do SLUMS. Patient/Caregiver TO get better. Goals OT Pain Assessment Pain When Pain Assessed At Rest Pain Present Pain Present Denied Pain M4 OT- IP ADL's Start: 08/21/24 11:20 Freq: Status: Active Protocol: Document 08/21/24 10:50 [facility] (Rec: 08/21/24 11:40 [facility] Desktop) OT BSA-[id number]-Bqipbry Comments OT Self-Feeding Not at meal time. Comments OT ADL-Grooming Comments OT Grooming Comments Pt refused. OT ADL-Oral Care Comments Oral Care Comments Pt not wanting to perform at this time. OT ADL-Dressing General Eval Lower Body Dressing Maximum Assistance Ability Areas Needing Underpants/Brief,Socks Assistance Comments OT Dressing Comments Pt needing assist to help pull up the brief up over her hips and assist with socks. OT ADL-Toileting General Evaluation Toileting Ability Minimal Assistance Areas Needing Manage Clothing Assistance Comments OT Toileting Assist with briefs. Comments OT ADL-Bathing Comments OT Bathing Comments Not performed. M5 OT- IP IADL's Start: 08/21/24 11:20 Freq: Status: Active Protocol: Document 08/21/24 10:50 [facility] (Rec: 08/21/24 11:40 [facility] Desktop) OT-Instrumental Activities of Daily Living Home Safety Awareness Awareness of Need Good Awareness for Assistance at Home Home Safety Comments Pt aware lately has not been able to care for herself appropriately and has been weak. Medication Management Medication Pt states did her meds prior. Management Comments Money Management Money Management Caregiver Provides Assistance Meal Preparation Meal Preparation Caregiver Provides Assist Oil Well Pumper Oil Well Pumper Caregiver Provides Assist M6 OT- IP Functional Cognition Start: 08/21/24 11:20 Freq: Status: Active Protocol: Document 08/22/24 15:00 [facility] (Rec: 08/22/24 15:03 [facility] Desktop) Cognitive Factors Limiting Selfcare Function Cognitive Ability Level of Alertness Alert Patient Orientation Name,Age,Birthday,Month,Date,Year,Day of Week,Place, Situation Attention Span Capable of Focused Attention,Capable of Sustained Ability Attention Ability to Follow Able to Follow Multi-Step Commands Commands Memory Description No Deficits Noted Problem Solving No deficits Noted Ability Cognitive Tests SLUMS Pt scored 30/30 which implies normal for cognition. Cognitive Comments Cognitive Assessment Pt much more alert and intact for cognitive needs. Pt Comments aware yesterday was not thinking well and that she finally slept and feeling much better now. M8 OT- IP Objective Assessments Start: 08/21/24 11:20 Freq: Status: Active Protocol: Document 08/21/24 10:50 [facility] (Rec: 08/21/24 11:40 [facility] Desktop) OT Gross Range of Motion Upper Extremity Range of Motion Assessment Bilaterally Impaired OT Strength Upper Extremity Strength Assessment Bilaterally Impaired Comments Strength Comments BUE shoulders 3-/5 to distal 4/5. OT- Coordination Assessment Upper Extremity Finger to Nose Test Within Functional Limits M9 OT- IP Assessment and Plan Start: 08/21/24 11:20 Freq: Status: Active Protocol: Document 08/21/24 10:50 [facility] (Rec: 08/21/24 11:40 [facility] Desktop) OT Summary Assessment and Plan Potential Rehabilitation Good Potential Analytic Complexity Moderate at Evaluation Summary OT Impairments Range of Motion,Strength,Balance,Functional Cognition, Functional Mobility,Self-Feeding,Grooming,Dressing, Toileting,Bathing,Toilet Transfers,Shower Transfers, Activity Tolerance Progress Towards Slow Progress due to Medical Issues,Slow Progress due Goals to Activity Tolerance Assessment Summary Pt doing much better today and alert and scored 30/30 on the SLUMS which implies normal for cognitive needs. Pt per nursing aid also now one person assist for mobility needs. Pt to go to skilled rehab tomorrow. Goals Self-Feeding Goal Independent Grooming Goal Independent Dressing Goal Independent Toileting Goal Independent Bathing Goal Independent Toilet Transfer Goal Independent Shower Transfer Goal Standby Assistance Days to Meet Goals 10 Frequency of Treatment Other frequency 5x/week Treatment Plan OT Treatment Plan ADL Training,Functional Cognition Training,Functional Mobility Other Treatment LB dressing, standing at sink for ADL needs with FWW Recommendations and Next Treatment Focus Discharge Recommendations OT Discharge SNF Rehab Recommendations Transportation Needs Private Vehicle,Wheelchair/Cabulance at Discharge
--- NOTE | 2024-08-22 16:11 | DIET.CONS ---
Dietary Consultation Note Admission Date: 08/20/2024 04:03 Assessment: 69 y F admitted for UTI. Dietitian consulted for wounds. Per wound care note, pt with multiple non-pressure chronic ulcers. Denies recent weight loss or looser fitting clothes. Eats 3 meals per day outside of hospital, no decrease in appetite. Per DFM review, pt getting extra food protein serving daily (extra chicken sausage or divehi yogurt) Ht: 167.64 cm Wt: 136.078 kg BMI: 48.4 UBW: 136 kg per pt Last BM: 08/22/24 (08/22/24 10:21) MNA: 11 Pedro Score: 20 Diet: 08/20/24 Breakfast Heart Healthy Diet Diet Modifications: Nutrition Percent Meal Consumed 75% 08/22/24 09:00 Percent Meal Consumed 100% 08/21/24 17:54 Labs: RBC 4.23 X10^6/uL (4.0-5.2) 08/20/24 06:14 Hgb 10.8 g/dL (12.0-16.0) L 08/20/24 06:14 Hct 34.3 % (36-46) L 08/20/24 06:14 Creatinine 0.87 mg/dL (0.52-1.04) 08/22/24 05:10 Lactate 0.7 mmol/L (0.7-2.1) 08/20/24 04:05 NT-Pro-B Natriuret Pep 1180 pg/mL (<125) H 08/19/24 21:40 Nutrition Diagnosis: Increased nutrient needs (conditionally essential amino acids) r/t healing needs aeb non-pressure ulcers Interventions: Vinicius BID Monitoring/Evaluations: f/u on tolerance Electronically Signed by: Angela Momin 08/22/24 16:11 Clinical Dietitian [address] [address]
--- NOTE | 2024-08-22 18:17 | PM.PN.1 ---
Subjective Subjective Interval history: The sed rate is 49. The BMP is normal. The CRP is 0.5. The multiple scabs on her extremities and torso are resolving with the surrounding redness gone and the scabs starting to come off. This has been treated with painted on Betadine. She will be able to change to oral antibiotics soon. She was seen by the wound care center physician yesterday and no lesion biopsy was needed. A wound culture is growing Gram-positive cocci and the urine culture is growing Gram-negative bacilli. Exam Vital Signs (past 8 hours): Oxygen Delivery Method Room Air Oxygen Flow Rate 0 Narrative Exam Narrative: She is alert and oriented x3. No apparent distress. Heart is regular rate and rhythm without murmur. Lungs are clear to auscultation bilaterally. Extremities have no ankle edema. Abdomen has a large ventral hernia, stable. The multiple scabs on her extremities and torso are resolving with the surrounding redness gone and the scabs starting to come off. Objective Labs 08/20/24 06:14 08/22/24 05:10 Labs: Laboratory Results - last 24 hr 08/22/24 05:10 Sodium 136 L Potassium 3.7 Chloride 107 Carbon Dioxide 24 BUN 19 H Creatinine 0.87 Estimated GFR > 60 BUN/Creatinine Ratio 21.8 Glucose 95 Calcium 8.5 Magnesium 1.7 PFSH Medical History Obesity (BMI 30-39.9) Knee pain, right NOLA (generalized anxiety disorder) Depression Hypertension Morbid obesity with BMI of 50.0-59.9, adult Periodic limb movement disorder (PLMD) Insomnia, unspecified Obstructive sleep apnea of adult Snoring Surgical History History of gastric bypass Social History marital status: details: to Rajan Diaz household members: children and other lives independently: Yes caregiver/support person: No housing: house Smoking Status: Current some day smoker alcohol intake: former Assessment & Plan Assessment & Plan narrative: Fall with generalized weakness. Generalized weakness likely due to underlying UTI and cellulitis infection. Treating underlying infections and also the weakness with PT OT. UTI. Gram-negative bacilli. Continue IV ceftriaxone. Patient not septic at this time. Cellulitis of multiple large skin picking ulceration/scabs of left anterior thigh and abdominal skin. Gram-positive cocci. Continue IV ceftriaxone and IV vancomycin. Continue nystatin powder to pannus area. Betadine painting the lesions. Appreciate wound care consult. Transition to oral antibiotics likely tomorrow when discharge home is expected. Leukocytosis. Likely due to above. No other sign of sepsis. Atrial fibrillation. Resumed home medication. Of note patient is not on anticoagulation. Hypertension. Monitor blood pressure and treat accordingly. GERD. Resume PPI. Chronic low back pain and daily hydrocodone use. Agreed to hydrocodone 5/325 for moderate pain and 10/650 for severe pain to substitute for the home 7.5/300 dosing. DVT prophylaxis heparin subcu. Disposition: PT is recommending nursing home facility. We will see how she is doing tomorrow. CODE STATUS DNR/DNI. Time-Based Coding :: [TOTAL MINUTES] spent with patient and on the chart (including review of chart, obtaining history, exam, reviewing outside data, placing orders, documenting exam and treatment plan, and counseling patient) on [DATE].
[2024-08-22 20:06] VITALS: BP 146/82; PULSE 74; RESP 18; TEMP 36.2; O2SAT 94
[2024-08-22] MEDS: TRAZODONE 50 MG TABLET 150 MG PO (21:37)
--- NOTE | 2024-08-23 03:27 | PC.NURSE ---
Patient is alert and oriented. Breath sounds CTA with RA sat of 94%. HRR. Denied nausea. BT present and abdomen is soft; has large ventral hernia. Is able to turn herself in bed. Assisted to BSC with walker and 1 assist although has generalized weakness especially in right leg. Refused to have SCD's placed so reminded to ankle wave. Has multiple scabbed lesions and open areas all over body. Mediplex dressing intact to coccyx. Recevied Benadryl and Vicodin prior to this RN assuming care and denied any pain when asked at time of assessment. Wound culture is growing gm + cocci so placed on contact precautions. Fall risk score is high and bed alarm is activated.
[2024-08-23] MEDS: HYDROCODONE/ACET 5/325 TABLET 2 TAB PO ×2 (05:04→11:10)
[2024-08-23] MEDS: diphenhydrAMINE 25 MG TABLET PO ×2 (05:04→11:10)
[2024-08-23 06:44] LABS: Blood Urea Nitrogen 19 mg/dL (7-17); Calcium 8.7 mg/dL (8.4-10.2); Carbon Dioxide 26 mmol/L (22-32); Chloride 105 mmol/L (98-107); Estimated Glomerular Filt Rate > 60 mL/min (>60); Glucose 97 mg/dL (70-99); HEMOLYSIS < 15 (0-50); Magnesium 1.8 mg/dL (1.6-2.3); Potassium 3.7 mmol/L (3.4-5.1); Sodium 135 mmol/L (137-145)
[2024-08-23 08:00] VITALS: BP 161/97; PULSE 87; RESP 18; TEMP 36.7; O2SAT 94
[2024-08-23 08:45] VITALS: BP 164/97; PULSE 87
[2024-08-23] MEDS: LOSARTAN 50 MG TABLET 100 MG PO (08:45)
[2024-08-23] MEDS: DULOXETINE 30 MG CAPSULE 60 MG PO (08:45)
[2024-08-23] MEDS: GABAPENTIN 600 MG TABLET PO (08:45)
[2024-08-23] MEDS: PANTOPRAZOLE DR 40 MG TABLET PO (08:45)
[2024-08-23] MEDS: HEPARIN 5,000 UNIT/ML VIAL 5000 UNIT SUBCUT (08:46)
[2024-08-23] MEDS: SODIUM CHLORIDE 0.9% FLUSH 10 ML IV (08:47)
--- NOTE | 2024-08-23 10:58 | PM.DS.1 ---
History of Present Illness History of Present Illness Chief complaint: weakness Narrative: From H&P: 69-year-old female with past medical history of morbid obesity status post gastric bypass, chronic ventral hernia, GERD, hypertension, atrial fibrillation presents with complaint of generalized weakness and fall at home. Per report, the patient had a ground-level fall at home and was too weak to get back up on her own. The patient denies any head injury or loss of consciousness. The patient did admit to have some skin sores in her pannus area. The patient also was concerned of some redness and scaling in her lower extremity edema. Otherwise the patient denies any fever, chills, nausea, vomiting, diarrhea, chest pain or shortness of breath. 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 08/20/24 03:25 Consult to Occupational Therapy Evaluate & Treat Comment: Physician Instructions: Evaluate and treat Consult to Physical Therapy Evaluate & Treat Comment: Physician Instructions: Evaluate and Treat 08/20/24 13:11 Consult to Wound Care Routine Comment: Consulting Provider: [facility] Discharge provider: Giuseppe Lloyd MD Summary Hospital Course Discharge Diagnosis: 1. Fall with generalized weakness. Present on admission and improved. 2. UTI. Present on admission and improved. 3. Cellulitis of multiple large skin picking ulceration/scabs of left anterior thigh and abdominal skin. Present on admission and improved. 4. Leukocytosis. Improved. 5. Atrial fibrillation. Chronic and stable. Of note patient is not on anticoagulation. 6. Hypertension. Chronic and stable. 7. GERD. Chronic and stable. 8. Chronic low back pain and daily hydrocodone use. Chronic and stable. Agreed to hydrocodone 5/325 for moderate pain and 10/650 for severe pain to substitute for the home 7.5/300 dosing. Hospital Course: She was admitted with weakness and treated for urinary tract infection. A urine culture revealed E coli which was sensitive to cephalosporins. She also had a soft tissue infection relating to skin picking and ulcerations of her anterior thigh and abdomen. This also improved. A swab revealed MSSA. She was seen by Physical therapy and Occupational therapy and felt to be and need for rehabilitation efforts. She agreed to a rehabilitation stay and was felt to be stable for discharge to [facility] on August 23. A wound care consultation was obtained on August 21 with the following recommendations: The patient with multiple dry eschars on extremities and ulcers on back and right groin likely infectious. The erythema has improved with antibiotic therapy. Plan for culture of open ulcer on back. Apply Betadine daily to the eschars and follow up in wound center after discharge for further evaluation and treatment. Status at Discharge Cognitive/behavioral status at discharge: oriented Functional status at discharge: independent ambulation Overall status at discharge: patient is back to baseline Time Spent with Patient Time spent: Greater than 30 minutes Exam Vital Signs (past 8 hours): - 08/23/24 08:00 08/23/24 08:45 Temperature 98.0 F Pulse Rate 87 87 Respiratory Rate 18 Blood Pressure 161/97 H 164/97 H Pulse Oximetry 94 Oxygen Flow Rate 0 Oxygen Delivery Method Room Air Oxygen Flow Rate 0 Narrative Exam Narrative: NAD, alert and oriented. Fluent speech. Lungs are clear, normal rate and effort. Heart is regular, no murmur gallop or rub. Abdomen is soft, non distended. Extremities are free of edema. Objective Imaging Chest x-ray: Radiologist's impression: IMPRESSION: [id number] pulmonary edema. Dictated by: Luisito Larson M.D. on 08/19/2024 at 22:05 Labs 08/20/24 06:14 08/23/24 05:50 Labs: Laboratory Results - last 24 hr 08/23/24 05:50 Sodium 135 L Potassium 3.7 Chloride 105 Carbon Dioxide 26 BUN 19 H Creatinine 0.70 Estimated GFR > 60 BUN/Creatinine Ratio 27.1 H Glucose 97 Calcium 8.7 Magnesium 1.8 [facility] Medical History Obesity (BMI 30-39.9) Knee pain, right NOLA (generalized anxiety disorder) Depression Hypertension Morbid obesity with BMI of 50.0-59.9, adult Periodic limb movement disorder (PLMD) Insomnia, unspecified Obstructive sleep apnea of adult Snoring Surgical History History of gastric bypass Social History marital status: details: to Rajan Diaz household members: children and other lives independently: Yes caregiver/support person: No housing: house Smoking Status: Current some day smoker alcohol intake: former Discharge Assessment & Plan Assessment and Plan Assessment: 1. Fall with generalized weakness. Present on admission and improved. 2. UTI. Present on admission and improved. 3. Cellulitis of multiple large skin picking ulceration/scabs of left anterior thigh and abdominal skin. Present on admission and improved. 4. Leukocytosis. Improved. Plan of Treatment: Discharge to alf facility for ongoing rehabilitative efforts. Discharge Plan Discharge Plan Patient Disposition: SNF Transfer to: [facility] Under care of provider: SNF provider Provider Discharge Comment: Stable for discharge to alf facility for rehabilitative efforts. Discharge orders & Medications Prescriptions: New diphenhydramine HCl [Allergy (diphenhydramine)] 25 mg Tablet 25 mg PO Q6HR PRN (Reason: Itching) Qty: 30 0RF cephalexin 500 mg capsule 500 mg PO QID Qty: 20 0RF Continued gabapentin 300 mg capsule 600 mg PO TID duloxetine 30 mg capsule,delayed release(DR/EC) 60 mg PO DAILY triamterene-hydrochlorothiazid 75-50 mg tablet 1 tab PO DAILY fluoxetine 20 mg capsule 40 mg PO DAILY diltiazem HCl 180 mg capsule,extended release 24hr 180 mg PO BID losartan 100 mg tablet 100 mg PO DAILY hydrocodone-acetaminophen 7.5-300 mg tablet 1 tab PO Q6H PRN (Reason: Pain (Scale Score 7-10)) Qty: 14 0RF omeprazole 40 mg capsule,delayed release(DR/EC) 40 mg PO DAILY (DME) [employer] Dream[employer] BIPAP Qty: 1 Dose Instruction: As directed Patient Comments: Pressure: 8-16 cmH2O DME: [facility] Instructions: As directed trazodone 100 mg tablet 150 mg PO BEDTIME Follow up/Referrals: Maylin Green MD [Primary Care Provider, Internal Medicine] Discharge Health Status Multidrug resistant organism: No MDRO Diet/Activity/Treatments Diet: Regular Special Rehabilitation Services Reason for rehabilitation: Recovery r/t decondition Rehab type: Physical therapy and Occupational therapy Visit Report/Discharge Packet Stand Alone Forms: Patient Portal/API Discharge Data Primary Care Provider: Maylin Green
--- NOTE | 2024-08-23 12:06 | CM.DPC ---
DCP Cont. Reviewed EMR and team rounds for pt's medical status updates. Pt has been medically [facility] They will transport her at 1:00pm. D/c clinicals faxed. No further CM d/c needs are indicated at this time.
== END 2024-08-23 13:05 | DRG 690 ==
LOC: ED 23:45 → AC 08-20 04:03
PROVIDERS: Family Medicine; Admitting Provider Internal Medicine; Emergency Provider Emergency Medicine; Family Provider Internal Medicine; PCP Internal Medicine; Referring Provider Emergency Medicine; Visit Provider Internal Medicine
DX: N39.0 Urinary tract infection, site not specified (principal); L03.116 Cellulitis of left lower limb; L03.311 Cellulitis of abdominal wall; L97.821 Non-pressure chronic ulcer of other part of left lower leg limited to breakdown of skin; L97.811 Non-pressure chronic ulcer of other part of right lower leg limited to breakdown of skin; Z68.42 Body mass index [BMI] 45.0-49.9, adult; R53.1 Weakness; I48.91 Unspecified atrial fibrillation; I10 Essential (primary) hypertension; K21.9 Gastro-esophageal reflux disease without esophagitis; G89.29 Other chronic pain; M54.50 Low back pain, unspecified; L98.422 Non-pressure chronic ulcer of back with fat layer exposed; L98.499 Non-pressure chronic ulcer of skin of other sites with unspecified severity; B96.20 Unspecified Escherichia coli [E. coli] as the cause of diseases classified elsewhere; F17.200 Nicotine dependence, unspecified, uncomplicated; B95.61 Methicillin susceptible Staphylococcus aureus infection as the cause of diseases classified elsewhere; R62.7 Adult failure to thrive; G47.33 Obstructive sleep apnea (adult) (pediatric); F32.A Depression, unspecified; W18.30XA Fall on same level, unspecified, initial encounter; Z98.84 Bariatric surgery status; Z66 Do not resuscitate; Z79.891 Long term (current) use of opiate analgesic
CPT/HCPCS: 36415; 71045; 80048; 80053; 81001; 82550; 83605; 83690; 83735; 83880; 84484; 85025; 85610; 85651; 85730; 86140; 87040; 87070; 87075; 87077; 87086; 87147; 87186; 87205; 93005; 93010; 96365; 96366; 96367; 97129; 97161; 97166; 97530; 99284; 99291; J0696; J1644

== ENCOUNTER → 2024-09-04 11:45 | Outpatient (ROUT) | payer MEDICARE, SELFPAY ==
[2024-08-20 12:48] VITALS: BMI 48.4
[2024-09-04 12:01] LABS: Ammonia (NH3) < 9 umol/L (9-30)
== END ==
PROVIDERS: Family Provider Internal Medicine; PCP Internal Medicine; Visit Provider Registered Nurse
DX: L29.9 Pruritus, unspecified (principal)
CPT/HCPCS: 82140